=== PATIENT | female | born 1985 ===

== ENCOUNTER 2016-07-20 12:05 | Emergency (ER) | payer MEDICAID ==
[2016-07-20 12:06] VITALS: BMI 21.5
[2016-07-20 12:31] VITALS: TEMP 98
--- NOTE | 2016-07-20 14:00 | ED PDOC ---
Lower Extremity Pain/Injury Time Seen by Provider: 07/20/16 12:45 Chief Complaint (Nursing): Lower Extremity Problem/Injury Chief Complaint (Provider): Lower Extremity Problem/Injury History Per: Patient History/Exam Limitations: no limitations Onset/Duration Of Symptoms: Days (x2 days) Current Symptoms Are (Timing): Still Present Additional Complaint(s): 30 y/o female who presents to the emergency department with a complaint of right leg pain described as numbness and a pinching sensation throughout the right leg x2 days. Associated with fleeting shortness of breath and chest pain ( had resolved since) only at night before going to sleep x3 months. Patient states she felt a small ball located on the inner region of the right leg with pain to palpation and was concerned it was a blood clot. Denies any recent travel. Of note, patient is concerned because she has a history of blood clotting disorders. Patient reports taking Eliquis which she believes does not work because when she accidentally cut herself she noted that her blood is extremely thick. States she had a stroke at the age of 23 and takes Hydroxia, Topamax ( For seizures), Gabapentin, and Atorvastatin (high cholesterol). PMD: Dr. Costa Jones MD Past Medical History Reviewed: Historical Data, Nursing Documentation, Vital Signs Vital Signs: Last Vital Signs Temp 98.0 F 07/20/16 12:29 Pulse 64 07/20/16 12:29 Resp 19 07/20/16 12:29 BP Pulse Ox 119 H 07/20/16 12:29 - Medical History PMH: Anemia, Anxiety, Arthritis, Asthma, Back Problems, CAD, CVA (x 3, Protein C /S deficiency), Depression, HTN, Hypercholesterolemia, Hyperlipidemia, Migraine , Schizophrenia, Seizures, Sickle Cell Disease, TIA, Chronic Pain Denies: Chronic Kidney Disease - Family History Family History: States: Unknown Family Hx, [place] - Social History Current smoker - smoking cessation education provided: Yes (Light Smoker < 10 Cigarettes Daily) Alcohol: None Drugs: Denies - Immunization History Hx Tetanus Toxoid Vaccination: Yes Hx Influenza Vaccination: No Hx Pneumococcal Vaccination: Yes - Home Medications Home Medications: Ambulatory Orders Medication Instructions Recorded Apixaban [Eliquis] 5 mg PO BID #0 tab 09/21/15 oxyCODONE [oxyCODONE Immediate 15 mg PO Q8H PRN 02/21/16 Release Tab] Atorvastatin [Lipitor] 10 mg PO HS 04/14/16 Doxycycline Hyclate [Doryx] 100 mg PO Q12H 04/14/16 Gabapentin [Neurontin] 300 mg PO BID 04/14/16 Multivitamin [Multi-Vitamin Daily] 1 tab PO DAILY 04/14/16 traMADol [Ultram] 50 mg PO Q4H PRN 04/14/16 Cephalexin [Keflex] 500 mg PO Q6 #20 cap 04/19/16 Topiramate [Topamax] 150 mg PO BID #60 tab 04/19/16 - Allergies Allergies/Adverse Reactions: Allergies Allergy/AdvReac Type Severity Reaction Status Date / Time ketorolac tromethamine Allergy Mild SWELLING Verified 04/27/16 21:28 [From Toradol] naproxen [From Naprosyn] Allergy Mild URTICARIA Verified 04/27/16 21:28 polyethylene glycol 3350 Allergy Mild RASH Verified 04/27/16 21:28 [From Miralax] shellfish derived Allergy Mild ANAPHYLAXIS Verified 04/27/16 21:28 mushroom Allergy ANAPHYLAXIS Verified 04/27/16 21:28 ibuprofen [From Motrin] AdvReac Mild vomiting Verified 04/27/16 21:28 blood PORK AdvReac DIARRHEA Verified 04/27/16 21:28 nguyen Allergy Severe RASH Uncoded 04/27/16 21:28 Review of Systems ROS Statement: Except As Marked, All Systems Reviewed And Found Negative Cardiovascular: Positive for: Chest Pain (Only at night; fleeting) Respiratory: Positive for: Shortness of Breath (only at night; fleeting) Musculoskeletal: Positive for: Leg Pain (Right. Associated with numbness and pinching sensation. Hurts with palpation) Physical Exam - Reviewed Nursing Documentation Reviewed: Yes Vital Signs Reviewed: Yes - Physical Exam Appears: Positive for: Non-toxic, No Acute Distress Head Exam: Positive for: ATRAUMATIC, NORMOCEPHALIC Skin: Positive for: Normal Color, Warm, Dry Neck: Positive for: Normal, Supple Cardiovascular/Chest: Positive for: Regular Rate, Rhythm. Negative for: Murmur Respiratory: Positive for: Normal Breath Sounds. Negative for: Accessory Muscle Use, Respiratory Distress Extremity: Negative for: Normal ROM (Superficial harden noted above varicose vein to the medial aspect of the right leg), Other (Negative mariely's sign. ) Neurologic/Psych: Positive for: Alert, Oriented - Laboratory Results Result Diagrams: 07/20/16 14:28 07/20/16 14:28 - ECG ECG Rhythm: Positive for: Sinus Rhythm (74bpm no ectopy no acute changes) O2 Sat by Pulse Oximetry: 119 (RA) Pulse Ox Interpretation: Normal - Progress ED Course And Treament: ct : neg for dvt Medical Decision Making Medical Decision Making: Time: 12:45 Initial impression: Chest Pain (Non Specific) Initial plan: --Angio Chest PE Protocol (CT) --Electrocardiogram --B-Type Natriuretic Peptide (PROBNP) --BMP (Basic Metabolic Panel) --Troponin I Stat --ED Urine (POC) --EKG-ED (EDNURTX) --CBC w/ differential --Chest Portable (RAD) --Duplex Lower Extrm Vein Right (US) Time: 14:11 --Extremity Ultrasound FINDINGS: COMMON FEMORAL VEIN: Number color flow, compressibility and augmentation response. SUPERFICIAL FEMORAL VEIN: Number color flow, compressibility and augmentation response. POPLITEAL VEIN: Number color flow, compressibility and augmentation response. POSTERIOR TIBIAL VEIN: Number color flow, compressibility and augmentation response. OTHER FINDINGS: None. IMPRESSION: No evidence of deep venous thrombosis in the right lower extremity. Time: 14:16 -- Duplex is negative Time: 14:30 --Partial Thromboplastin Time (COAG) --Prothrombin (COAG) Scribe Attestation: Documented by Kim Crenshaw, acting as a scribe for Kalli jaeger PA-C. Provider Scribe Attestation: All medical record entries made by the Scribe were at my direction and personally dictated by me. I have reviewed the chart and agree that the record accurately reflects my personal performance of the history, physical exam, medical decision making, and the department course for this patient. I have also personally directed, reviewed, and agree with the discharge instructions and disposition. Disposition - Clinical Impression Clinical Impression: Varicose vein of leg, Chest pain of uncertain etiology - Patient ED Disposition Is Patient to be Admitted: No - Disposition Disposition: Routine/Home Disposition Time: 17:31 Condition: FAIR Instructions: Varicose Veins (ED), Chest Pain (ED)
--- NOTE | 2016-07-20 14:14 | US ---
PROCEDURE: Right lower extremity venous duplex Doppler. HISTORY: r/o dvt COMPARISON: None available. TECHNIQUE: Common femoral, superficial femoral, popliteal and posterior tibial veins were evaluated. Flow was assessed with color Doppler, compressibility, assessment of phasic flow and augmentation response. FINDINGS: COMMON FEMORAL VEIN: Number color flow, compressibility and augmentation response. SUPERFICIAL FEMORAL VEIN: Number color flow, compressibility and augmentation response. POPLITEAL VEIN: Number color flow, compressibility and augmentation response. POSTERIOR TIBIAL VEIN: Number color flow, compressibility and augmentation response. OTHER FINDINGS: None. IMPRESSION: No evidence of deep venous thrombosis in the right lower extremity.
[2016-07-20 14:35] LABS: BASO # 0.1 K/uL (0.0-0.2); BASO % 0.8 % (0.0-2.0); EOS # 0.1 K/uL (0.0-0.7); EOS % 2.1 % (0.0-4.0); HEMATOCRIT 38.6 % (34.0-47.0); LYMPH # 1.7 K/uL (1.0-4.3); LYMPH % 25.9 % (20.0-40.0); MEAN CELL VOLUME 89.8 fl (81.0-99.0); MEAN CORPUSCULAR HEMOGLOBIN 29.3 pg (27.0-31.0); MEAN CORPUSCULAR HGB CONC 32.7 g/dL (33.0-37.0); MEAN PLATELET VOLUME 8.3 fl (7.2-11.7); MONO # 0.6 K/uL (0.0-0.8); MONO % 9.3 % (0.0-10.0); NEUT # 4.1 K/uL (1.8-7.0); NEUT % 61.9 % (50.0-75.0); NRBC % 0.1 % (0.0-0.0); RED CELL DISTRIBUTION WIDTH 16.8 % (11.5-14.5); WHITE BLOOD COUNT 6.6 K/uL (4.8-10.8)
[2016-07-20 15:29] LABS: BLOOD UREA NITROGEN 14 mg/dl (7-17); CALCIUM 9.2 mg/dL (8.4-10.2); CARBON DIOXIDE 23 mmol/L (22-30); CHLORIDE 107 mmol/L (98-107); GFR AFRICAN-AMERICAN > 60; GLUCOSE,RANDOM 72 mg/dL (65-105); POTASSIUM 3.3 MMOL/L (3.6-5.0); SODIUM 145 mmol/l (132-148)
[2016-07-20] MEDS ORDERED: Sodium Chloride 0.9% 50 ML IV ONE (15:33)
[2016-07-20] MEDS ORDERED: Iodixanol 320 MG/ML 100 ML BOTTLE IV ONE (15:33)
--- NOTE | 2016-07-20 17:02 | CT ---
PROCEDURE: CT Chest with contrast (Pulmonary Angiogram) HISTORY: r/o PE COMPARISON: None available. TECHNIQUE: Axial computed tomography images were obtained of the chest in the pulmonary arterial phase of enhancement. Coronal and sagittal reformatted images were created and reviewed. This CT exam was performed using one or more of the following dose reduction techniques: Automated exposure control, adjustment of the mA and/or kV according to patient size, and/or use of iterative reconstruction technique. Intravenous contrast dose: 85 cc of Visipaque Radiation dose: Total exam DLP = 350 mGy-cm. FINDINGS: PULMONARY ARTERIES: Unremarkable. No pulmonary embolism. AORTA: No acute findings. No thoracic aortic aneurysm. LUNGS: Unremarkable. No nodule, mass or pulmonary consolidation. PLEURAL SPACES: Unremarkable. No effusion or pneuomothorax. HEART: Unremarkable. No cardiomegaly. No significant pericardial effusion. LYMPH NODES: No lymphadenopathy. BONES, CHEST WALL: Unremarkable. No fracture or destructive lesion OTHER FINDINGS: Unremarkable. IMPRESSION: Unremarkable CT pulmonary angiogram. No pulmonary embolus.
[2016-07-20 17:35] VITALS: BP 106/68; PULSE 68; RESP 16; O2SAT 100
--- NOTE | 2016-07-20 19:01 | CARD ---
APPROVED REPORT EKG Measurement Heart [id number] <Conclusion> Normal sinus rhythm with sinus arrhythmia Normal ECG
== END 2016-07-20 17:45 | disposition home or self-care (01) ==
LOC: H.ER 12:05
DX: I83.90 Asymptomatic varicose veins of unspecified lower extremity (principal); R07.9 Chest pain, unspecified; E78.00 Pure hypercholesterolemia, unspecified; F17.210 Nicotine dependence, cigarettes, uncomplicated; F20.9 Schizophrenia, unspecified; F41.9 Anxiety disorder, unspecified; I10 Essential (primary) hypertension; I25.10 Atherosclerotic heart disease of native coronary artery without angina pectoris; Z79.01 Long term (current) use of anticoagulants; Z86.73 Personal history of transient ischemic attack (TIA), and cerebral infarction without residual deficits

== ENCOUNTER 2016-07-23 00:59 | Emergency (ER) | payer MEDICAID ==
[2016-07-23 00:59] VITALS: BMI 21.5
--- NOTE | 2016-07-23 01:25 | ED PDOC ---
HPI: Allergic Reaction Time Seen by Provider: 07/23/16 01:24 Chief Complaint (Nursing): Allergic Reaction Chief Complaint (Provider): dizziness, nausea History Per: Patient Additional Complaint(s): Patient states that she is concerned she may have had a reaction to CT contrast dye. Patient was seen 2 days ago in ED and had CT with IV dye. Shortly after she developed nausea, dizziness and sensation of swelling to face. Patient denies any throat discomfort or rash. She states that she has had IV contrast dye in the past and did develop similar reaction but on her most recent visit to ED she did not mention it to the ED provider. She denies any vomiting but has had persistent nausea and decreased PO intake. No associated chest pain, SOB or YEE. No fever or chills. Past Medical History Reviewed: Historical Data, Nursing Documentation, Vital Signs Vital Signs: Last Vital Signs Temp 98.4 F 07/23/16 01:19 Pulse 77 07/23/16 01:19 Resp 18 07/23/16 01:19 BP 138/79 07/23/16 01:19 Pulse Ox 100 07/23/16 01:19 - Medical History PMH: Anemia, Anxiety, Arthritis, Asthma, Back Problems, CAD, CVA (x 3, Protein C /S deficiency), Depression, HTN, Hypercholesterolemia, Hyperlipidemia, Migraine , Schizophrenia, Seizures, Sickle Cell Disease, TIA, Chronic Pain - Family History Family History: States: No Known Family Hx - Living Arrangements Living Arrangements: With Family - Social History Current smoker - smoking cessation education provided: Yes Alcohol: None Drugs: Denies - Home Medications Home Medications: Ambulatory Orders Medication Instructions Recorded Apixaban [Eliquis] 5 mg PO BID #0 tab 09/21/15 oxyCODONE [oxyCODONE Immediate 15 mg PO Q8H PRN 02/21/16 Release Tab] Atorvastatin [Lipitor] 10 mg PO HS 04/14/16 Doxycycline Hyclate [Doryx] 100 mg PO Q12H 04/14/16 Gabapentin [Neurontin] 300 mg PO BID 04/14/16 Multivitamin [Multi-Vitamin Daily] 1 tab PO DAILY 04/14/16 traMADol [Ultram] 50 mg PO Q4H PRN 04/14/16 Cephalexin [Keflex] 500 mg PO Q6 #20 cap 04/19/16 Topiramate [Topamax] 150 mg PO BID #60 tab 04/19/16 Ondansetron [Zofran Odt] 4 mg PO ASDIR PRN #10 odt 07/23/16 predniSONE [Prednisone] 10 mg PO BID #10 tab 07/23/16 - Allergies Allergies/Adverse Reactions: Allergies Allergy/AdvReac Type Severity Reaction Status Date / Time ketorolac tromethamine Allergy Mild SWELLING Verified 04/27/16 21:28 [From Toradol] naproxen [From Naprosyn] Allergy Mild URTICARIA Verified 04/27/16 21:28 polyethylene glycol 3350 Allergy Mild RASH Verified 04/27/16 21:28 [From Miralax] shellfish derived Allergy Mild ANAPHYLAXIS Verified 04/27/16 21:28 mushroom Allergy ANAPHYLAXIS Verified 04/27/16 21:28 ibuprofen [From Motrin] AdvReac Mild vomiting Verified 04/27/16 21:28 blood PORK AdvReac DIARRHEA Verified 04/27/16 21:28 nguyen Allergy Severe RASH Uncoded 04/27/16 21:28 Review of Systems ROS Statement: Except As Marked, All Systems Reviewed And Found Negative Constitutional: Positive for: Other (possible adverse reaction to med). Negative for: Fever, Chills Gastrointestinal: Positive for: Nausea. Negative for: Vomiting, Abdominal Pain Skin: Negative for: Rash Neurological: Positive for: Dizziness. Negative for: Headache Physical Exam - Reviewed Nursing Documentation Reviewed: Yes Vital Signs Reviewed: Yes - Physical Exam Appears: Positive for: Well, Non-toxic, No Acute Distress Head Exam: Positive for: ATRAUMATIC, NORMAL INSPECTION Skin: Negative for: Rash Eye Exam: Positive for: Normal appearance, EOMI, PERRL ENT: Positive for: Other (no apparent facial edema, airway patent, uvula midline ) Cardiovascular/Chest: Positive for: Regular Rate, Rhythm Respiratory: Positive for: Normal Breath Sounds Gastrointestinal/Abdominal: Positive for: Normal Exam, Soft. Negative for: Tenderness Neurologic/Psych: Positive for: Alert, Oriented - Laboratory Results Urine POC: Negative - ECG O2 Sat by Pulse Oximetry: 100 Pulse Ox Interpretation: Normal - Progress ED Course And Treament: Medical Decision Making Impression: Adverse reaction to medication. No respiratory distress noted upon arrival. Plan: IM solumedrol and zofran Patient improved after meds. Rx given for zofran and prednisone. Patient was advised to inform providers of reaction to dye in the future. Advised PMD follow up in 1-2 days. Disposition - Clinical Impression Clinical Impression: Contrast media adverse reaction - Patient ED Disposition Is Patient to be Admitted: No Counseled Patient/Family Regarding: Diagnosis, Need For Followup, Rx Given - Disposition Referrals: Costa Jones MD [Staff Provider] - Disposition: Routine/Home Disposition Time: 03:39 Condition: STABLE Additional Instructions: Take meds as directed. Follow up with primary care doctor. Prescriptions: Ondansetron [Zofran Odt] 4 mg PO ASDIR PRN #10 odt PRN Reason: Nausea/Vomiting predniSONE [Prednisone] 10 mg PO BID #10 tab Instructions: Adverse Drug Reaction (ED)
[2016-07-23 02:16] VITALS: BP 138/79; PULSE 77; RESP 18; TEMP 98.4; O2SAT 100
== END 2016-07-23 03:46 | disposition home or self-care (01) ==
LOC: H.ER 00:59
DX: T50.8X5A Adverse effect of diagnostic agents, initial encounter (principal); Z79.01 Long term (current) use of anticoagulants; R42 Dizziness and giddiness; I11.0 Hypertensive heart disease with heart failure; I10 Essential (primary) hypertension; F20.9 Schizophrenia, unspecified; E78.00 Pure hypercholesterolemia, unspecified; Z86.73 Personal history of transient ischemic attack (TIA), and cerebral infarction without residual deficits

== ENCOUNTER 2016-08-17 08:44 | Emergency (ER) | payer MEDICAID ==
[2016-08-17 08:45] VITALS: BMI 21.5
[2016-08-17 09:10] VITALS: RESP 14
--- NOTE | 2016-08-17 09:31 | ED PDOC ---
HPI: Chest Pain Time Seen by Provider: 08/17/16 09:00 Chief Complaint (Nursing): Chest Pain Chief Complaint (Provider): Chest Pain History Per: Patient History/Exam Limitations: no limitations Onset/Duration Of Symptoms: Hrs Current Symptoms Are (Timing): Still Present Severity: Moderate Quality: "Pain" Associated Symptoms: Dyspnea Modifying Factors: None Exacerbating Factors: None Alleviating Factors: None Additional History Per: Patient Additional Complaint(s): Patient is a 30 year old female who presents to ED for evaluation of back pain and chest pain that began upon waking this morning at 0700. Patient notes pain is associated with SOB. States she has a history of CVA 2 years ago with residual left sided numbness and mild facial droop. Patient also with a history of sickle cell, takes Dilaudid daily but recently ran out of medication, notes pain management doctor is on vacation and will be unable to see him. requesting pain medications. Past Medical History Reviewed: Historical Data, Nursing Documentation, Vital Signs Vital Signs: Last Vital Signs Temp 98.4 F 08/17/16 14:11 Pulse 67 08/17/16 14:11 Resp 14 08/17/16 14:11 BP 118/59 L 08/17/16 14:11 Pulse Ox 99 08/17/16 19:06 - Medical History PMH: Anemia, Anxiety, Arthritis, Asthma, Back Problems, CAD, CVA (x 3, Protein C /S deficiency), Depression, HTN, Hypercholesterolemia, Hyperlipidemia, Migraine , Schizophrenia, Seizures, Sickle Cell Disease, TIA, Chronic Pain Denies: Chronic Kidney Disease - Surgical History Other surgeries: ovarian cyst removal - Family History Family History: States: Unknown Family Hx, [place] - Social History Current smoker - smoking cessation education provided: No Alcohol: None Drugs: Denies - Immunization History Hx Tetanus Toxoid Vaccination: Yes Hx Influenza Vaccination: No Hx Pneumococcal Vaccination: Yes - Home Medications Home Medications: Ambulatory Orders Medication Instructions Recorded Apixaban [Eliquis] 5 mg PO BID #0 tab 09/21/15 oxyCODONE [oxyCODONE Immediate 15 mg PO Q8H PRN 02/21/16 Release Tab] Atorvastatin [Lipitor] 10 mg PO HS 04/14/16 Doxycycline Hyclate [Doryx] 100 mg PO Q12H 04/14/16 Gabapentin [Neurontin] 300 mg PO BID 12/30/16 Multivitamin [Multi-Vitamin Daily] 1 tab PO DAILY 04/14/16 traMADol [Ultram] 50 mg PO Q4H PRN 04/14/16 Cephalexin [Keflex] 500 mg PO Q6 #20 cap 04/19/16 Topiramate [Topamax] 150 mg PO BID #60 tab 04/19/16 Ondansetron [Zofran Odt] 4 mg PO ASDIR PRN #10 odt 07/23/16 predniSONE [Prednisone] 10 mg PO BID #10 tab 07/23/16 - Allergies Allergies/Adverse Reactions: Allergies Allergy/AdvReac Type Severity Reaction Status Date / Time ketorolac tromethamine Allergy Mild SWELLING Verified 04/27/16 21:28 [From Toradol] naproxen [From Naprosyn] Allergy Mild URTICARIA Verified 04/27/16 21:28 polyethylene glycol 3350 Allergy Mild RASH Verified 04/27/16 21:28 [From Miralax] shellfish derived Allergy Mild ANAPHYLAXIS Verified 04/27/16 21:28 mushroom Allergy ANAPHYLAXIS Verified 04/27/16 21:28 ibuprofen [From Motrin] AdvReac Mild vomiting Verified 04/27/16 21:28 blood PORK AdvReac DIARRHEA Verified 04/27/16 21:28 nguyen Allergy Severe RASH Uncoded 04/27/16 21:28 Review of Systems ROS Statement: Except As Marked, All Systems Reviewed And Found Negative Constitutional: Negative for: Fever, Weakness, Weight loss Cardiovascular: Positive for: Chest Pain. Negative for: Palpitations, Light Headedness Respiratory: Positive for: Shortness of Breath. Negative for: Cough Gastrointestinal: Negative for: Nausea, Vomiting, Abdominal Pain Musculoskeletal: Positive for: Back Pain. Negative for: Neck Pain Skin: Negative for: Rash Neurological: Negative for: Weakness, Numbness, Headache, Dizziness Physical Exam - Reviewed Nursing Documentation Reviewed: Yes Vital Signs Reviewed: Yes - Physical Exam Appears: Positive for: Non-toxic, No Acute Distress Skin: Positive for: Normal Color, Warm Eye Exam: Positive for: Normal appearance Neck: Positive for: Normal, Painless ROM Cardiovascular/Chest: Positive for: Regular Rate, Rhythm, Chest Non Tender. Negative for: Murmur Respiratory: Positive for: Normal Breath Sounds Gastrointestinal/Abdominal: Positive for: Normal Exam Back: Positive for: Normal Inspection. Negative for: Vertebral Tenderness Extremity: Positive for: Normal ROM Neurologic/Psych: Positive for: Alert, Oriented - Laboratory Results Result Diagrams: 08/17/16 10:23 08/17/16 10:23 - ECG O2 Sat by Pulse Oximetry: 99 (RA) Pulse Ox Interpretation: Normal Medical Decision Making Medical Decision Making: Time: 924 Initial impression: Acute on chronic sickle cell pain, r/o pneumonia and ACS Initial plan: -- EKG -- CMP -- Troponin -- CBC -- CXR -- Dilaudid IVP Time: 1200 Patient reports continued pain at this time. States pain radiates from her chest to the back. Plan: -- CT-chest Time: 1650 CT-chest reuslts reviewed PROCEDURE: CT Chest without contrast HISTORY: chest pain COMPARISON: Comparison is made to the previous study dated 07/20/2016 TECHNIQUE: Contiguous axial images were obtained through the chest without intravenous contrast enhancement. Sagittal and coronal reconstructions were performed. Radiation dose (DLP): 376.1 mGy-cm. This CT exam was performed using one or more of the following dose reduction techniques: Automated exposure control, adjustment of the mA and/or kV according to patient size, and/or use of iterative reconstruction technique. FINDINGS: LUNGS: Clear lungs. Visualized airway clear. MEDIASTINUM: Unremarkable thoracic aorta. No aneurysm. Normal sized heart. Main pulmonary artery unremarkable. No vascular congestion. No lymphadenopathy. Anterior mediastinal soft tissue density is again noted likely represent residual thymus gland. PLEURA: No pleural fluid. No pneumothorax. BONES: No fracture. No destructive lesion. UPPER ABDOMEN: Possible mild hepato splenomegaly. OTHER FINDINGS: None. IMPRESSION: No evidence of acute pulmonary disease. No significant interval change in the chest since the previous exam. Suspicious for hepato splenomegaly. U/S results reviewed PROCEDURE: Bilateral lower extremity venous duplex Doppler. HISTORY: chest pain rule out clot COMPARISON: None available. TECHNIQUE: Bilateral common femoral, superficial femoral, popliteal and posterior tibial veins were evaluated. Flow was assessed with color Doppler, compressibility, assessment of phasic flow and augmentation response. FINDINGS: COMMON FEMORAL VEIN: Right CFV: Unremarkable. Left CFV: Unremarkable SUPERFICIAL FEMORAL VEIN: Right SFV: Unremarkable. Left SFV: Unremarkable. POPLITEAL VEIN: Right Popliteal: Unremarkable. Left Popliteal: Unremarkable. POSTERIOR TIBIAL VEIN: Right PTV: Unremarkable. Left PTV: Unremarkable. OTHER FINDINGS: None. IMPRESSION: No evidence of deep venous thrombosis. Discussed results with patient who verbalized understanding of instructions to follow up. pt states she feels better now. will follow up with primary doctor. aware of results of CT. Scribe Attestation: Documented by Erica Ledezma acting as a scribe for Filipe Cortez MD. MD Thornton Attestation: All medical record entries made by the Scribe were at my direction and personally dictated by me. I have reviewed the chart and agree that the record accurately reflects my personal performance of the history, physical exam, medical decision making, and the department course for this patient. I have also personally directed, reviewed, and agree with the discharge instructions and disposition. Disposition - Clinical Impression Clinical Impression: Chest wall pain - Patient ED Disposition Is Patient to be Admitted: No Counseled Patient/Family Regarding: Studies Performed, Diagnosis, Need For Followup - Disposition Disposition: Routine/Home Disposition Time: 12:00 Condition: IMPROVED Additional Instructions: follow up with your primary doctor in 1-2 days return to the ED with any worsening or concerning symptoms Instructions: Chest Pain (ED)
[2016-08-17 10:44] LABS: BASO # 0.1 K/uL (0.0-0.2); BASO % 1.1 % (0.0-2.0); EOS # 0.1 K/uL (0.0-0.7); EOS % 0.7 % (0.0-4.0); HEMATOCRIT 44.4 % (34.0-47.0); LYMPH # 2.4 K/uL (1.0-4.3); LYMPH % 22.8 % (20.0-40.0); MEAN CELL VOLUME 89.1 fl (81.0-99.0); MEAN CORPUSCULAR HEMOGLOBIN 29.1 pg (27.0-31.0); MEAN CORPUSCULAR HGB CONC 32.7 g/dL (33.0-37.0); MEAN PLATELET VOLUME 8.6 fl (7.2-11.7); MONO # 0.9 K/uL (0.0-0.8); MONO % 8.3 % (0.0-10.0); NEUT # 7.2 K/uL (1.8-7.0); NEUT % 67.1 % (50.0-75.0); NRBC % 0.1 % (0.0-0.0); WHITE BLOOD COUNT 10.7 K/uL (4.8-10.8)
--- NOTE | 2016-08-17 10:44 | RAD ---
HISTORY: chest pain COMPARISON: Comparison is made to the previous study dated 04/14/2016 TECHNIQUE: Chest PA and lateral FINDINGS: LUNGS: No active pulmonary disease. PLEURA: No significant pleural effusion identified. No pneumothorax apparent. CARDIOVASCULAR: Normal. OSSEOUS STRUCTURES: No significant abnormalities. VISUALIZED UPPER ABDOMEN: Normal. OTHER FINDINGS: None. IMPRESSION: No active disease.
[2016-08-17 10:48] LABS: ALKALINE PHOSPHATASE 83 U/L (38-126); ALT/SGPT 25 U/L (9-52); AST/SGOT 33 U/L (14-36); BILIRUBIN,TOTAL 0.8 mg/dl (0.2-1.3); BLOOD UREA NITROGEN 13 mg/dl (7-17); CALCIUM 9.7 mg/dL (8.4-10.2); CARBON DIOXIDE 19 mmol/L (22-30); CHLORIDE 112 mmol/L (98-107); GFR AFRICAN-AMERICAN > 60; GLUCOSE,RANDOM 87 mg/dL (65-105); SODIUM 146 mmol/l (132-148); TOTAL PROTEIN 9.1 G/DL (6.3-8.2)
[2016-08-17 14:12] VITALS: BP 118/59; PULSE 67; TEMP 98.4
--- NOTE | 2016-08-17 14:13 | CT ---
PROCEDURE: CT Chest without contrast HISTORY: chest pain COMPARISON: Comparison is made to the previous study dated 07/20/2016 TECHNIQUE: Contiguous axial images were obtained through the chest without intravenous contrast enhancement. Sagittal and coronal reconstructions were performed. Radiation dose (DLP): 376.1 mGy-cm. This CT exam was performed using one or more of the following dose reduction techniques: Automated exposure control, adjustment of the mA and/or kV according to patient size, and/or use of iterative reconstruction technique. FINDINGS: LUNGS: Clear lungs. Visualized airway clear. MEDIASTINUM: Unremarkable thoracic aorta. No aneurysm. Normal sized heart. Main pulmonary artery unremarkable. No vascular congestion. No lymphadenopathy. Anterior mediastinal soft tissue density is again noted likely represent residual thymus gland. PLEURA: No pleural fluid. No pneumothorax. BONES: No fracture. No destructive lesion. UPPER ABDOMEN: Possible mild hepato splenomegaly. OTHER FINDINGS: None. IMPRESSION: No evidence of acute pulmonary disease. No significant interval change in the chest since the previous exam. Suspicious for hepato splenomegaly.
--- NOTE | 2016-08-17 16:41 | US ---
PROCEDURE: Bilateral lower extremity venous duplex Doppler. HISTORY: chest pain rule out clot COMPARISON: None available. TECHNIQUE: Bilateral common femoral, superficial femoral, popliteal and posterior tibial veins were evaluated. Flow was assessed with color Doppler, compressibility, assessment of phasic flow and augmentation response. FINDINGS: COMMON FEMORAL VEIN: Right CFV: Unremarkable. Left CFV: Unremarkable. SUPERFICIAL FEMORAL VEIN: Right SFV: Unremarkable. Left SFV: Unremarkable. POPLITEAL VEIN: Right Popliteal: Unremarkable. Left Popliteal: Unremarkable. POSTERIOR TIBIAL VEIN: Right PTV: Unremarkable. Left PTV: Unremarkable. OTHER FINDINGS: None. IMPRESSION: No evidence of deep venous thrombosis.
[2016-08-17 16:58] VITALS: O2SAT 99
--- NOTE | 2016-08-18 08:44 | CARD ---
APPROVED REPORT EKG Measurement Heart [id number] <Conclusion> Sinus bradycardia with sinus arrhythmia Otherwise normal ECG
== END 2016-08-17 17:05 | disposition home or self-care (01) ==
LOC: H.ER 08:44
DX: R07.9 Chest pain, unspecified (principal); R06.02 Shortness of breath; M54.9 Dorsalgia, unspecified; Z86.73 Personal history of transient ischemic attack (TIA), and cerebral infarction without residual deficits

== ENCOUNTER 2016-11-04 21:20 | Emergency (ER) | payer MEDICAID ==
[2016-11-04 21:21] VITALS: BMI 21.5
[2016-11-04 21:24] VITALS: BP 122/73; PULSE 66; RESP 16; TEMP 99.4; O2SAT 98
[2016-11-04] MEDS ORDERED: Sodium Chloride 0.9% 1,000 ML IV STA (21:48)
--- NOTE | 2016-11-04 22:12 | ED PDOC ---
HPI: Seizure Time Seen by Provider: 11/04/16 21:27 Chief Complaint (Nursing): Seizure Chief Complaint (Provider): Seizure History Per: Patient History/Exam Limitations: no limitations Length Of Seizures (Duration): Minutes (20-30 minutes) Additional Complaint(s): Patient is a 31 year old female complaining of a right-sided headache and diffuse body aches after experiencing a seizure in the bathroom around 11:30 am. Patient believes she lost consciousness for about 20-30 minutes. Reports chills and two episodes of diarrhea x1 day. Admits being compliant with home medications. Denies drug or alcohol use, loss of sleep, or recent stressors. Of note, patient is under the care of pain management and is prescribed Dilaudid 4 mg by mouth as needed for chronic pain. States she did not take it prior to arrival because she knew that she was going to receive Dilaudid in the emergency department. PCP: Dr. Costa Bailey Past Medical History Reviewed: Historical Data, Nursing Documentation, Vital Signs Vital Signs: Last Vital Signs Temp 99.4 F 11/04/16 21:22 Pulse 66 11/04/16 21:22 Resp 16 11/04/16 21:22 BP 122/73 11/04/16 21:22 Pulse Ox 98 11/04/16 22:26 - Medical History PMH: Anemia, Anxiety, Arthritis, Asthma, Back Problems, CAD, CVA (x 3, Protein C /S deficiency), Depression, HTN, Hypercholesterolemia, Hyperlipidemia, Migraine , Schizophrenia, Seizures, Sickle Cell Disease, TIA, Chronic Pain Denies: Chronic Kidney Disease - Surgical History Surgical History: No Surg Hx - Family History Family History: States: Unknown Family Hx, [place] - Immunization History Hx Tetanus Toxoid Vaccination: Yes Hx Influenza Vaccination: No Hx Pneumococcal Vaccination: Yes - Home Medications Home Medications: Ambulatory Orders Medication Instructions Recorded Apixaban [Eliquis] 5 mg PO BID #0 tab 09/21/15 oxyCODONE [oxyCODONE Immediate 15 mg PO Q8H PRN 02/21/16 Release Tab] Atorvastatin [Lipitor] 10 mg PO HS 04/14/16 Doxycycline Hyclate [Doryx] 100 mg PO Q12H 04/14/16 Gabapentin [Neurontin] 300 mg PO BID 04/14/16 Multivitamin [Multi-Vitamin Daily] 1 tab PO DAILY 04/14/16 traMADol [Ultram] 50 mg PO Q4H PRN 04/14/16 Cephalexin [Keflex] 500 mg PO Q6 #20 cap 04/19/16 Topiramate [Topamax] 150 mg PO BID #60 tab 04/19/16 Ondansetron [Zofran Odt] 4 mg PO ASDIR PRN #10 odt 07/23/16 predniSONE [Prednisone] 10 mg PO BID #10 tab 07/23/16 - Allergies Allergies/Adverse Reactions: Allergies Allergy/AdvReac Type Severity Reaction Status Date / Time ketorolac tromethamine Allergy Mild SWELLING Verified 04/27/16 21:28 [From Toradol] naproxen [From Naprosyn] Allergy Mild URTICARIA Verified 04/27/16 21:28 polyethylene glycol 3350 Allergy Mild RASH Verified 04/27/16 21:28 [From Miralax] shellfish derived Allergy Mild ANAPHYLAXIS Verified 04/27/16 21:28 mushroom Allergy ANAPHYLAXIS Verified 04/27/16 21:28 ibuprofen [From Motrin] AdvReac Mild vomiting Verified 04/27/16 21:28 blood PORK AdvReac DIARRHEA Verified 04/27/16 21:28 nguyen Allergy Severe RASH Uncoded 04/27/16 21:28 Review of Systems ROS Statement: Except As Marked, All Systems Reviewed And Found Negative Constitutional: Positive for: Chills, Other (Diffuse body aches). Negative for : Fever Gastrointestinal: Positive for: Diarrhea Neurological: Positive for: Seizures, Headache (Right sided) Physical Exam - Reviewed Nursing Documentation Reviewed: Yes Vital Signs Reviewed: Yes - Physical Exam Appears: Positive for: No Acute Distress (Upon arrival for first evaluation, patient was found sitting comfortably in bed using her phone.) Head Exam: Positive for: ATRAUMATIC, NORMAL INSPECTION, NORMOCEPHALIC Skin: Positive for: Normal Color, Warm, Dry Eye Exam: Positive for: Normal appearance ENT: Positive for: Normal ENT Inspection. Negative for: Pharyngeal Erythema Neck: Positive for: Normal, Painless ROM, Supple Cardiovascular/Chest: Positive for: Regular Rate, Rhythm. Negative for: Murmur Respiratory: Positive for: Normal Breath Sounds. Negative for: Accessory Muscle Use, Respiratory Distress Gastrointestinal/Abdominal: Positive for: Normal Exam, Soft. Negative for: Tenderness Back: Positive for: Normal Inspection. Negative for: L CVA Tenderness, R CVA Tenderness Extremity: Positive for: Normal ROM. 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 Negative for: Motor/Sensory Deficits, Aphasia, Facial Droop - ECG O2 Sat by Pulse Oximetry: 98 (RA) Pulse Ox Interpretation: Normal Medical Decision Making Medical Decision Making: Initial Impression: Breakthrough seizure, acute on chronic head pain, and head injury Initial Plan: * CT Head * Labs * Urine Dipstick * Urine * Dilaudid 4 mg PO * NS 1 L, 1 L/hr * IV Insertion * Reevaluation ~ Scribe Attestation: Documented by Payton Hernandez, acting as a scribe for Bijal Roldan MD. Provider Scribe Attestation: All medical record entries made by the Scribe were at my direction and personally dictated by me. I have reviewed the chart and agree that the record accurately reflects my personal performance of the history, physical exam, medical decision making, and the department course for this patient. I have also personally directed, reviewed, and agree with the discharge instructions and disposition.
[2016-11-04 23:10] LABS: BASO # 0.1 K/uL (0.0-0.2); BASO % 0.9 % (0.0-2.0); EOS % 0.4 % (0.0-4.0); HEMOGLOBIN 13.9 g/dL (12.0-16.0); LYMPH # 2.8 K/uL (1.0-4.3); LYMPH % 23.9 % (20.0-40.0); MEAN CELL VOLUME 85.7 fl (81.0-99.0); MEAN CORPUSCULAR HEMOGLOBIN 27.5 pg (27.0-31.0); MEAN CORPUSCULAR HGB CONC 32.1 g/dL (33.0-37.0); MEAN PLATELET VOLUME 8.8 fl (7.2-11.7); MONO # 0.8 K/uL (0.0-0.8); MONO % 6.7 % (0.0-10.0); NEUT # 7.8 K/uL (1.8-7.0); NEUT % 68.1 % (50.0-75.0); RBC 5.06 Mil/uL (3.80-5.20); RED CELL DISTRIBUTION WIDTH 13.6 % (11.5-14.5); WHITE BLOOD COUNT 11.5 K/uL (4.8-10.8)
[2016-11-04 23:16] LABS: ALB/GLOB RATIO 1.3 (1.0-2.1); ALBUMIN 4.5 g/dL (3.5-5.0); ALT/SGPT 27 U/L (9-52); AST/SGOT 17 U/L (14-36); BLOOD UREA NITROGEN 9 mg/dl (7-17); CALCIUM 9.4 mg/dL (8.4-10.2); GFR AFRICAN-AMERICAN > 60; GFR NON-AFRICAN AMERICAN > 60
--- NOTE | 2016-11-05 00:11 | ED PDOC ---
- Laboratory Results Result Diagrams: 11/04/16 23:04 11/04/16 23:04 - ECG O2 Sat by Pulse Oximetry: 98 (RA) Pulse Ox Interpretation: Normal Medical Decision Making Medical Decision Making: Time: 0000 Initial plan: --Patient signed out to me by Dr. Roldan. Pending Head CT. 0126: Re-Evaluation/CT Scan Results: EXAM: CT Head Without Intravenous Contrast CLINICAL HISTORY: 31 years old, female; Injury or trauma; Injury Seizure; Initial encounter; Concussion / head injury; Without loss of consciousness; Additional info: Head injury on eliquis TECHNIQUE: Axial computed tomography images of the head/brain without intravenous contrast. This CT exam was performed using one or more of the following dose reduction techniques: automated exposure control, adjustment of the mA and/or kV according to patient size, and/or use of iterative reconstruction technique. Coronal and sagittal reformatted images were created and reviewed. COMPARISON: No relevant prior studies available. FINDINGS: Brain: No intracranial hemorrhage. No mass. No edema. Ventricles: No hydrocephalus. Bones/joints: No acute fracture. Soft tissues: Unremarkable. Sinuses: No acute sinusitis. Mastoid air cells: No mastoid effusion. Orbits: Unremarkable as visualized. IMPRESSION: 1. No intracranial hemorrhage. 2. Incidental/non-acute findings are described above. 130 Pt. states she's feeling better but still has some pain. 4mg PO dilaudid ordered, patient explained that she needs to f/u w/ pain managmenet and neurologist. Pt. in bed texting and playing on phone, neurologically intact. Will d/c home, return precautions given. Scribe Attestation: Documented by Sandy Hall, acting as a scribe for Jacinto Gunn MD. Scribe Attestation: All medical record entries made by the Scribe were at my direction and personally dictated by me. I have reviewed the chart and agree that the record accurately reflects my personal performance of the history, physical exam, medical decision making, and the department course for this patient. I have also personally directed, reviewed, and agree with the discharge instructions and disposition. Disposition - Clinical Impression Clinical Impression: Seizure, Migraine - POA Present On Arrival: None - Disposition [facility]errals[facility]] Disposition: Routine/Home Disposition Time: 01:45 Condition: STABLE Instructions: Migraine Headache (ED), Recurrent Seizures in Adults (ED)
[2016-11-05 00:46] LABS: PROTHROMBIN TIME 14.5 Seconds (9.8-13.1)
[2016-11-05 00:47] LABS: INR 1.3 (0.9-1.2); PARTIAL THROMBOPLASTIN TIME 34.2 Seconds (25.6-37.1)
[2016-11-05 01:17] LABS: SQUAMOUS EPITHIAL 6 /hpf (0-5); URINE BACTERIA RARE (<OCC); URINE BILIRUBIN NEGATIVE (NEGATIVE); URINE BLOOD NEGATIVE (NEGATIVE); URINE CLARITY SLIGHTY-CLOUDY (Clear); URINE COLOR YELLOW (YELLOW); URINE GLUCOSE (UA) NEG (Normal); URINE HYALINE CAST 0-2 /hpf (0-2); URINE LEUKOCYTE ESTERASE MOD Leu/uL (Negative); URINE NITRATE NEGATIVE (NEGATIVE); URINE PROTEIN NEGATIVE (NEGATIVE)
--- NOTE | 2016-11-05 01:26 | CT ---
EXAM: CT Head Without Intravenous Contrast CLINICAL HISTORY: 31 years old, female; Injury or trauma; Injury Seizure; Initial encounter; Concussion / head injury; Without loss of consciousness; Additional info: Head injury on eliquis TECHNIQUE: Axial computed tomography images of the head/brain without intravenous contrast. This CT exam was performed using one or more of the following dose reduction techniques: automated exposure control, adjustment of the mA and/or kV according to patient size, and/or use of iterative reconstruction technique. Coronal and sagittal reformatted images were created and reviewed. COMPARISON: No relevant prior studies available. FINDINGS: Brain: No intracranial hemorrhage. No mass. No edema. Ventricles: No hydrocephalus. Bones/joints: No acute fracture. Soft tissues: Unremarkable. Sinuses: No acute sinusitis. Mastoid air cells: No mastoid effusion. Orbits: Unremarkable as visualized. IMPRESSION: 1. No intracranial hemorrhage. 2. Incidental/non-acute findings are described above.
== END 2016-11-05 03:30 | disposition home or self-care (01) ==
LOC: H.ER 21:20
DX: G40.909 Epilepsy, unspecified, not intractable, without status epilepticus (principal); G43.909 Migraine, unspecified, not intractable, without status migrainosus

== ENCOUNTER 2016-11-13 12:28 | Emergency (ER) | payer MEDICAID, OTHER ==
[2016-11-13 12:28] VITALS: BMI 21.5
[2016-11-13 13:02] VITALS: BP 116/77; PULSE 71; RESP 18; TEMP 99; O2SAT 98
--- NOTE | 2016-11-13 13:37 | ED PDOC ---
HPI: General Adult Time Seen by Provider: 11/13/16 13:35 Chief Complaint (Nursing): Seizure Chief Complaint (Provider): seizure History Per: Patient (31 y/o female h/o seizures and strokes here for feeling of impending seizure. STates she forgot to take am dose of topomax (takes 100mg bid) and notes mild headache. Patient denies any weakness in arms/legs. Has h/o back/neck pain which has worsened today due sensation of impending seizures. Is currently on Eloquis for prevention of strokes.) Past Medical History Reviewed: Historical Data, Nursing Documentation, Vital Signs Vital Signs: Last Vital Signs Temp 99 F 11/13/16 12:57 Pulse 71 11/13/16 12:57 Resp 18 11/13/16 12:57 BP 116/77 11/13/16 12:57 Pulse Ox 98 11/13/16 13:37 - Medical History PMH: Anemia, Anxiety, Arthritis, Asthma, Back Problems, CAD, CVA (x 3, Protein C /S deficiency), Depression, HTN, Hypercholesterolemia, Hyperlipidemia, Migraine , Schizophrenia, Seizures, Sickle Cell Disease, TIA, Chronic Pain Denies: Chronic Kidney Disease - Family History Family History: States: Unknown Family Hx, [place] - Immunization History Hx Tetanus Toxoid Vaccination: Yes Hx Influenza Vaccination: No Hx Pneumococcal Vaccination: Yes - Home Medications Home Medications: Ambulatory Orders Medication Instructions Recorded Apixaban [Eliquis] 5 mg PO BID #0 tab 09/21/15 oxyCODONE [oxyCODONE Immediate 15 mg PO Q8H PRN 02/21/16 Release Tab] Atorvastatin [Lipitor] 10 mg PO HS 04/14/16 Doxycycline Hyclate [Doryx] 100 mg PO Q12H 04/14/16 Gabapentin [Neurontin] 300 mg PO BID 04/14/16 Multivitamin [Multi-Vitamin Daily] 1 tab PO DAILY 04/14/16 traMADol [Ultram] 50 mg PO Q4H PRN 04/14/16 Cephalexin [Keflex] 500 mg PO Q6 #20 cap 04/19/16 Topiramate [Topamax] 150 mg PO BID #60 tab 04/19/16 Ondansetron [Zofran Odt] 4 mg PO ASDIR PRN #10 odt 07/23/16 predniSONE [Prednisone] 10 mg PO BID #10 tab 07/23/16 - Allergies Allergies/Adverse Reactions: Allergies Allergy/AdvReac Type Severity Reaction Status Date / Time ketorolac tromethamine Allergy Mild SWELLING Verified 04/27/16 21:28 [From Toradol] naproxen [From Naprosyn] Allergy Mild URTICARIA Verified 04/27/16 21:28 polyethylene glycol 3350 Allergy Mild RASH Verified 04/27/16 21:28 [From Miralax] shellfish derived Allergy Mild ANAPHYLAXIS Verified 04/27/16 21:28 mushroom Allergy ANAPHYLAXIS Verified 04/27/16 21:28 ibuprofen [From Motrin] AdvReac Mild vomiting Verified 04/27/16 21:28 blood PORK AdvReac DIARRHEA Verified 04/27/16 21:28 nguyen Allergy Severe RASH Uncoded 04/27/16 21:28 Review of Systems ROS Statement: Except As Marked, All Systems Reviewed And Found Negative Physical Exam - Reviewed Nursing Documentation Reviewed: Yes Vital Signs Reviewed: Yes - Physical Exam Appears: Positive for: Well, Non-toxic, No Acute Distress Head Exam: Positive for: ATRAUMATIC, NORMAL INSPECTION, NORMOCEPHALIC Skin: Positive for: Normal Color, Warm, DRY Eye Exam: Positive for: EOMI, Normal appearance, PERRL ENT: Positive for: Normal ENT Inspection Neck: Positive for: Normal, Painless ROM Cardiovascular/Chest: Positive for: Regular Rate, Rhythm Respiratory: Positive for: CNT, Normal Breath Sounds Gastrointestinal/Abdominal: Positive for: Normal Exam, Bowel Sounds, Soft Back: Positive for: Normal Inspection Extremity: Positive for: Normal ROM Neurologic/Psych: Positive for: Alert, Oriented - Laboratory Results Result Diagrams: 11/13/16 14:25 11/13/16 14:25 - ECG O2 Sat by Pulse Oximetry: 98 - Progress ED Course And Treament: head ct: wnl topomax 100 mg x 1 dose Percocet 5/325 mg x 1 dose for pain Disposition - Clinical Impression Clinical Impression: Headache - Patient ED Disposition Is Patient to be Admitted: No - Disposition Disposition: Routine/Home Disposition Time: 15:23 Condition: FAIR Instructions: Epilepsy (DC), Acute Headache (DC) Forms: [employer] (Slovak)
--- NOTE | 2016-11-13 14:10 | CT ---
PROCEDURE: CT HEAD WITHOUT CONTRAST. HISTORY: headache/ on eloquis COMPARISON: 11/05/2016. TECHNIQUE: Axial computed tomography images were obtained through the head/brain without intravenous contrast. Radiation dose: Total exam DLP = 787.89 mGy-cm. This CT exam was performed using one or more of the following dose reduction techniques: Automated exposure control, adjustment of the mA and/or kV according to patient size, and/or use of iterative reconstruction technique. FINDINGS: HEMORRHAGE: No intracranial hemorrhage. BRAIN: No mass effect or edema. No atrophy or chronic microvascular ischemic changes. VENTRICLES: Unremarkable. No hydrocephalus. CALVARIUM: Unremarkable. PARANASAL SINUSES: Unremarkable as visualized. No significant inflammatory changes. MASTOID AIR CELLS: Unremarkable as visualized. No inflammatory changes. OTHER FINDINGS: None. IMPRESSION: No acute intracranial abnormalities. No significant findings to account for the clinical presentation.
[2016-11-13 14:40] LABS: BASO # 0.1 K/uL (0.0-0.2); BASO % 0.7 % (0.0-2.0); EOS % 0.6 % (0.0-4.0); HEMATOCRIT 43.6 % (34.0-47.0); LYMPH # 1.7 K/uL (1.0-4.3); LYMPH % 22.3 % (20.0-40.0); MEAN CELL VOLUME 86.1 fl (81.0-99.0); MEAN CORPUSCULAR HEMOGLOBIN 28.2 pg (27.0-31.0); MEAN CORPUSCULAR HGB CONC 32.8 g/dL (33.0-37.0); MEAN PLATELET VOLUME 8.7 fl (7.2-11.7); MONO # 0.5 K/uL (0.0-0.8); MONO % 5.8 % (0.0-10.0); NEUT # 5.6 K/uL (1.8-7.0); NEUT % 70.6 % (50.0-75.0); NRBC % 0.1 % (0.0-0.0); RED CELL DISTRIBUTION WIDTH 13.5 % (11.5-14.5); WHITE BLOOD COUNT 7.9 K/uL (4.8-10.8)
[2016-11-13 15:01] LABS: PARTIAL THROMBOPLASTIN TIME 33.9 Seconds (25.6-37.1)
[2016-11-13] MEDS: Sodium Chloride 0.9% 1,000 ML IV STA (15:06)
[2016-11-13 15:17] LABS: ALB/GLOB RATIO 1.2 (1.0-2.1); ALKALINE PHOSPHATASE 83 U/L (38-126); ALT/SGPT 50 U/L (9-52); AST/SGOT 36 U/L (14-36); BILIRUBIN,TOTAL 0.6 mg/dl (0.2-1.3); BLOOD UREA NITROGEN 6 mg/dl (7-17); CALCIUM 9.5 mg/dL (8.4-10.2); CARBON DIOXIDE 19 mmol/L (22-30); CHLORIDE 111 mmol/L (98-107); GFR AFRICAN-AMERICAN > 60; GLUCOSE,RANDOM 95 mg/dL (65-105); SODIUM 144 mmol/l (132-148); TOTAL PROTEIN 8.4 G/DL (6.3-8.2)
[2016-11-13] MEDS ORDERED: Oxycodone/Acetaminophen 5/325 mg Tab ONE (15:48)
[2016-11-13] MEDS: Oxycodone/Acetaminophen 5/325 mg Tab PO STA (15:52)
== END 2016-11-13 16:30 | disposition home or self-care (01) ==
LOC: H.ER 12:28
DX: R51 Headache (principal); Z86.69 Personal history of other diseases of the nervous system and sense organs; Z86.73 Personal history of transient ischemic attack (TIA), and cerebral infarction without residual deficits; Z79.01 Long term (current) use of anticoagulants; I10 Essential (primary) hypertension; E78.00 Pure hypercholesterolemia, unspecified; F20.9 Schizophrenia, unspecified

== ENCOUNTER 2016-11-14 02:18 | Observation (INO) | payer MEDICAID ==
[2016-11-14 02:18] VITALS: BMI 21.5
[2016-11-14 04:10] LABS: BASO # 0.1 K/uL (0.0-0.2); BASO % 0.6 % (0.0-2.0); EOS # 0.2 K/uL (0.0-0.7); EOS % 2.4 % (0.0-4.0); HEMATOCRIT 40.6 % (34.0-47.0); LYMPH # 2.8 K/uL (1.0-4.3); LYMPH % 26.2 % (20.0-40.0); MEAN CELL VOLUME 85.4 fl (81.0-99.0); MEAN CORPUSCULAR HEMOGLOBIN 28.3 pg (27.0-31.0); MEAN CORPUSCULAR HGB CONC 33.1 g/dL (33.0-37.0); MEAN PLATELET VOLUME 8.5 fl (7.2-11.7); MONO # 0.9 K/uL (0.0-0.8); MONO % 8.7 % (0.0-10.0); NEUT # 6.5 K/uL (1.8-7.0); NEUT % 62.1 % (50.0-75.0); NRBC % 0.2 % (0.0-0.0); RED CELL DISTRIBUTION WIDTH 13.5 % (11.5-14.5); WHITE BLOOD COUNT 10.5 K/uL (4.8-10.8)
[2016-11-14 04:18] LABS: ALB/GLOB RATIO 1.3 (1.0-2.1); ALKALINE PHOSPHATASE 63 U/L (38-126); ALT/SGPT 42 U/L (9-52); AST/SGOT 25 U/L (14-36); BILIRUBIN,TOTAL 0.5 mg/dl (0.2-1.3); BLOOD UREA NITROGEN 6 mg/dl (7-17); CALCIUM 9.1 mg/dL (8.4-10.2); CARBON DIOXIDE 19 mmol/L (22-30); CHLORIDE 110 mmol/L (98-107); GFR AFRICAN-AMERICAN > 60; GLUCOSE,RANDOM 99 mg/dL (65-105); POTASSIUM 3.1 MMOL/L (3.6-5.0); SODIUM 143 mmol/l (132-148); TOTAL PROTEIN 7.5 G/DL (6.3-8.2)
[2016-11-14] MEDS ORDERED: K-Lyte 25meq EF Tab PO ONE ×2 (04:26→06:17)
--- NOTE | 2016-11-14 04:29 | ED PDOC ---
HPI: Chest Pain Time Seen by Provider: 11/14/16 03:08 Chief Complaint (Nursing): Chest Pain Chief Complaint (Provider): chest pain History Per: Patient History/Exam Limitations: no limitations Additional Complaint(s): 31yo F in ED for acute chest p[ain she said started yesterday and has been intermittent. feels like an elhpan ton her chest left sided. denies nausea vomiting SOB or back pain. hx of Sickle cell , protein C/S def and sees pain mgnt. Past Medical History Reviewed: Historical Data, Nursing Documentation, Vital Signs Vital Signs: Last Vital Signs Temp 99.0 F 11/14/16 02:41 Pulse 89 11/14/16 02:41 Resp 12 11/14/16 02:41 BP 104/59 L 11/14/16 02:41 Pulse Ox 97 11/14/16 04:34 - Medical History PMH: Anemia, Anxiety, Arthritis, Asthma, Back Problems, CAD, CVA (x 3, Protein C /S deficiency), Depression, HTN, Hypercholesterolemia, Hyperlipidemia, Migraine , Schizophrenia, Seizures, Sickle Cell Disease, TIA, Chronic Pain Denies: Chronic Kidney Disease - Family History Family History: States: Unknown Family Hx, [place] - Immunization History Hx Tetanus Toxoid Vaccination: Yes Hx Influenza Vaccination: No Hx Pneumococcal Vaccination: Yes - Home Medications Home Medications: Ambulatory Orders Medication Instructions Recorded Apixaban [Eliquis] 5 mg PO BID #0 tab 09/21/15 oxyCODONE [oxyCODONE Immediate 15 mg PO Q8H PRN 02/21/16 Release Tab] Atorvastatin [Lipitor] 10 mg PO HS 04/14/16 Doxycycline Hyclate [Doryx] 100 mg PO Q12H 04/14/16 Gabapentin [Neurontin] 300 mg PO BID 04/14/16 Multivitamin [Multi-Vitamin Daily] 1 tab PO DAILY 04/14/16 traMADol [Ultram] 50 mg PO Q4H PRN 04/14/16 Cephalexin [Keflex] 500 mg PO Q6 #20 cap 04/19/16 Topiramate [Topamax] 150 mg PO BID #60 tab 04/19/16 Ondansetron [Zofran Odt] 4 mg PO ASDIR PRN #10 odt 07/23/16 predniSONE [Prednisone] 10 mg PO BID #10 tab 07/23/16 - Allergies Allergies/Adverse Reactions: Allergies Allergy/AdvReac Type Severity Reaction Status Date / Time ketorolac tromethamine Allergy Mild SWELLING Verified 04/27/16 21:28 [From Toradol] naproxen [From Naprosyn] Allergy Mild URTICARIA Verified 04/27/16 21:28 polyethylene glycol 3350 Allergy Mild RASH Verified 04/27/16 21:28 [From Miralax] shellfish derived Allergy Mild ANAPHYLAXIS Verified 04/27/16 21:28 mushroom Allergy ANAPHYLAXIS Verified 04/27/16 21:28 ibuprofen [From Motrin] AdvReac Mild vomiting Verified 04/27/16 21:28 blood PORK AdvReac DIARRHEA Verified 04/27/16 21:28 nguyen Allergy Severe RASH Uncoded 04/27/16 21:28 RADHA Risk Score for UA/NSTEMI - RADHA Risk Score Age > 64: NO 3 or more CAD Risk Factors: NO Known CAD (Stenosis greater than 50%): NO Aspirin use in past 7 days: NO Severe Angina: NO EKG ST changes greater than 0.5mm: NO Positive Cardiac Marker: NO RADHA Score: 0 Risk %: 5% Curb-65 Severity Score - CURB-65 Severity Score Confusion: No Bun >19mg/dl (>7mmol/L): No Respiratory Rate greater than/equal to 30: No Systolic BP <90 or Diastolic BP less than/equal 60mmHg: No Age >64: No Curb-65 Score: 0 Percentage 30-day mortality: 0.6% Wells Criteria for PE - Wells Criteria for Pulmonary Embolism Clinical Signs and Symptoms of DVT: No P.E is #1 Diagnosis, or Equally Likely: No Heart Rate >100: No Immobilization at least 3 days;Surgery previous 4 weeks: No Previous, objectively diagnosed PE or DVT: No Hemoptysis: No Malignancy w/treatment within 6 months, or palliative: No Total Score: 0 Review of Systems ROS Statement: Except As Marked, All Systems Reviewed And Found Negative Constitutional: Negative for: Fever, Weakness Cardiovascular: Positive for: Chest Pain Physical Exam - Reviewed Nursing Documentation Reviewed: Yes Vital Signs Reviewed: Yes - Physical Exam Appears: Positive for: Well (pt seen sleeping comfortably in ED. stable Vs and well appearing. ), Non-toxic, No Acute Distress Head Exam: Positive for: ATRAUMATIC, NORMAL INSPECTION, NORMOCEPHALIC Skin: Positive for: Normal Color, Warm, DRY Cardiovascular/Chest: Positive for: Regular Rate, Rhythm Respiratory: Positive for: CNT, Normal Breath Sounds Gastrointestinal/Abdominal: Positive for: Normal Exam, Bowel Sounds, Soft Extremity: Positive for: Normal ROM Neurologic/Psych: Positive for: Alert, Oriented - Laboratory Results Result Diagrams: 11/14/16 04:07 11/14/16 04:07 - ECG ECG Rhythm: Positive for: Normal QRS, Normal ST Segment, Sinus Rhythm O2 Sat by Pulse Oximetry: 97 - Progress ED Course And Treament: pt will need CTA to r/o PE due to hx . retic count, cbc, cmp, UA. Medical Decision Making Medical Decision Making: pt given Tylenol. PT has adverse reaction to IV contrast. PT will need VQ scan. PT has high rsik factors for PE- ie sickle cell, protein C& S def. and hx of PE. Pt will be admitted for obs tele. Disposition - Clinical Impression Clinical Impression: Chest pain - Patient ED Disposition Is Patient to be Admitted: No - Disposition Referrals: Costa Jones MD [Primary Care Provider] - Disposition Time: 04:51 Condition: STABLE Forms: just.me (Arabic) - Pt Status Changed To: Hospital Disposition Of: Observation - POA Present On Arrival: None
--- NOTE | 2016-11-14 11:18 | RAD ---
HISTORY: cough COMPARISON: 08/17/2016. TECHNIQUE: Chest PA and lateral FINDINGS: LUNGS: No active pulmonary disease. PLEURA: No significant pleural effusion identified. No pneumothorax apparent. CARDIOVASCULAR: Normal. OSSEOUS STRUCTURES: No significant abnormalities. VISUALIZED UPPER ABDOMEN: Normal. OTHER FINDINGS: None. IMPRESSION: No active disease. No significant interval change compared to the prior examination(s). No preliminary report provided by emergency department personnel.
[2016-11-14 12:17] LABS: THYROID STIMULATING HORMONE 1.13 mIU/ML (0.46-4.68)
[2016-11-14] MEDS ORDERED: Potassium Chloride 20 mEq ER Tab PO ONE (14:33)
[2016-11-14] MEDS: Potassium Chloride 20 mEq ER Tab PO SCH (14:35)
--- NOTE | 2016-11-14 15:18 | US ---
PROCEDURE: Bilateral lower extremity venous duplex Doppler. HISTORY: chest pain COMPARISON: None available. TECHNIQUE: Bilateral common femoral, superficial femoral, popliteal and posterior tibial veins were evaluated. Flow was assessed with color Doppler, compressibility, assessment of phasic flow and augmentation response. FINDINGS: COMMON FEMORAL VEIN: Right CFV: Unremarkable. Left CFV: Unremarkable. SUPERFICIAL FEMORAL VEIN: Right SFV: Unremarkable. Left SFV: Unremarkable. POPLITEAL VEIN: Right Popliteal: Unremarkable. Left Popliteal: Unremarkable. POSTERIOR TIBIAL VEIN: Right PTV: Unremarkable. Left PTV: Unremarkable. OTHER FINDINGS: None. IMPRESSION: No evidence of deep venous thrombosis in the right or left lower extremity. .
--- NOTE | 2016-11-14 15:31 | CP.PCM.HP ---
History of Present Illness - History of Present Illness History of Present Illness: This is a 31 y/o female h/o seizures, sickle cell, protein C& S def. and hx of PE who presents to ED c/o left sided chest pain that started yesterday, sudden, 01/23, no radiated, associated to difficulty breathing, but patient denies nausea, vomiting, abdominal pain or other complains. Present on Admission - Present on Admission Any Indicators Present on Admission: No History of DVT/PE: Yes History of Uncontrolled Diabetes: No Urinary Catheter: No Decubitus Ulcer Present: No Review of Systems - Constitutional Constitutional: As Per HPI Past Patient History - Infectious Disease Hx of Infectious Diseases: None - Tetanus Immunizations Tetanus Immunization: Unknown - Past Medical History & Family History Past Medical History?: Yes - Past Social History Smoking Status: Light Smoker < 10 Cigarettes Daily - CARDIAC Hx Cardiac Disorders: Yes - PULMONARY Hx Asthma: Yes - NEUROLOGICAL Hx Neurological Disorder: Yes - HEENT Hx HEENT Problems: No Other/Comment: wears glasses - RENAL Hx Chronic Kidney Disease: No - ENDOCRINE/METABOLIC Hx Endocrine Disorders: No Other/Comment: pre diabetic - HEMATOLOGICAL/ONCOLOGICAL Hx Blood Disorders: Yes - INTEGUMENTARY Hx Dermatological Problems: No - MUSCULOSKELETAL/RHEUMATOLOGICAL Hx Arthritis: Yes - GASTROINTESTINAL Hx Gastrointestinal Disorders: No - GENITOURINARY/GYNECOLOGICAL Hx Genitourinary Disorders: Yes - PSYCHIATRIC Hx Anxiety: Yes Hx Depression: Yes Hx Schizophrenia: Yes - SURGICAL HISTORY Hx Surgeries: Yes (L ovarian cyst) - ANESTHESIA Hx Anesthesia: Yes Hx Anesthesia Reactions: Yes (states "couldn't breathe") Meds Allergies/Adverse Reactions: Allergies Allergy/AdvReac Type Severity Reaction Status Date / Time ketorolac tromethamine Allergy Mild SWELLING Verified 04/27/16 21:28 [From Toradol] naproxen [From Naprosyn] Allergy Mild URTICARIA Verified 04/27/16 21:28 polyethylene glycol 3350 Allergy Mild RASH Verified 04/27/16 21:28 [From Miralax] shellfish derived Allergy Mild ANAPHYLAXIS Verified 04/27/16 21:28 mushroom Allergy ANAPHYLAXIS Verified 04/27/16 21:28 ibuprofen [From Motrin] AdvReac Mild vomiting Verified 04/27/16 21:28 blood PORK AdvReac DIARRHEA Verified 04/27/16 21:28 nguyen Allergy Severe RASH Uncoded 04/27/16 21:28 Physical Exam - Constitutional Appears: Non-toxic - Eye Exam Eye Exam: Normal appearance - ENT Exam ENT Exam: Mucous Membranes Moist - Respiratory Exam Respiratory Exam: Clear to Auscultation Bilateral, NORMAL BREATHING PATTERN - Cardiovascular Exam Cardiovascular Exam: REGULAR RHYTHM, +S1, +S2 - GI/Abdominal Exam GI & Abdominal Exam: Normal Bowel Sounds, Soft. absent: Distended, Guarding, Tenderness - Extremities Exam Extremities exam: Positive for: normal inspection. Negative for: calf tenderness, pedal edema - Neurological Exam Neurological exam: Alert, Oriented x3 - Skin Skin Exam: Dry, Intact, Normal Color Results - Vital Signs Recent Vital Signs: Last Vital Signs Temp 97.7 F 11/14/16 15:24 Pulse 98 H 11/14/16 15:24 Resp 19 11/14/16 15:24 BP 100/60 11/14/16 15:24 Pulse Ox 98 11/14/16 11:17 - Labs Result Diagrams: 11/14/16 04:07 11/14/16 04:07 Labs: Laboratory Results - last 24 hr 11/14/16 11:10 Triglycerides 145 Cholesterol 146 LDL Cholesterol Direct 75 HDL Cholesterol 35 TSH 3rd Generation 1.13 Assessment & Plan - Assessment and Plan (Free Text) Assessment: 31 y/o female h/o seizures, sickle cell, protein C& S def. and hx of PE presenting with an episode of chest pain associated to SOB admitted in telemetry for observation Plan: Chest pain admit to telemetry for obs -F/u Troponin I x 2 f/u VQ scan. Patient has allergies to IV contrast. f/u Lower extremities doppler US f/u lipid profile EKG showed no acute st/ t wave changes CXR showed no active disease H/O Seizure c/w home meds c/w topiramate H/O sickle cell disease Hgb/Hct : WNL retic count WNL -Consider Hemo consult Hypokalemia Potassium replacement potassium 40 meq PO daily f/u BMP DVT prophylaxis c/w home Eliquis - Date & Time Date: 11/14/16 Time: 13:00
[2016-11-14] MEDS ORDERED: Pneumococcal 23-Valent Vaccine IM ONE (18:53)
[2016-11-15 07:05] LABS: BLOOD UREA NITROGEN 9 mg/dl (7-17); CALCIUM 8.9 mg/dL (8.4-10.2); CARBON DIOXIDE 22 mmol/L (22-30); CHLORIDE 109 mmol/L (98-107); GFR AFRICAN-AMERICAN > 60; GLUCOSE,RANDOM 78 mg/dL (65-105); POTASSIUM 3.7 MMOL/L (3.6-5.0); SODIUM 140 mmol/l (132-148)
[2016-11-15] MEDS: Potassium Chloride 20 mEq ER Tab PO SCH (08:55)
[2016-11-15 12:57] VITALS: RESP 20
--- NOTE | 2016-11-15 13:00 | NM ---
COMPARISON: November 14, 2016. Chest x-ray TECHNIQUE: 44.7 mCi technetium 99-m DTPA aerosol. 5.7 mCI technetium 99-m MAA administered intravenously. FINDINGS: VENTILATION COMPONENT: Normal. PERFUSION COMPONENT: Heterogeneous distribution of radionuclide. No geographic, segmental, lobar abnormalities apparent on the present examination. IMPRESSION: Low probability ventilation perfusion scan for pulmonary embolism.
--- NOTE | 2016-11-15 14:21 | CP.PCM.DIS ---
Provider - Provider Date of Admission: 11/15/16 04:32 Attending physician: Costa Jones MD Primary care physician: Costa Jones MD Time Spent in preparation of Discharge (in minutes): 30 Diagnosis - Discharge Diagnosis (1) Chest pain Status: Acute Priority: High Comment: resolved during admission. EKG with NSR, and no acute ST/T wave changes. troponin I neg x 2. ACS was ruled out. VQ scan showed low probability for PE. Chest pain most likely secondary to costocondritis. F/u with PMD. (2) History of sickle cell anemia Status: Chronic Priority: Medium Comment: H/H WNL, retic count WNL. F/U as outpatient (3) History of seizure Status: Chronic Priority: Medium Comment: c/w current management. f/u as outpatient (4) Hypokalemia Status: Acute Priority: Medium Comment: potassium replaced and resolved (5) Chronic pain Status: Chronic Priority: High Comment: f/u with pain management Hospital Course - Lab Results Lab Results: Most Recent Lab Values WBC 10.5 K/uL (4.8-10.8) 11/14/16 04:07 RBC 4.75 Mil/uL (3.80-5.20) 11/14/16 04:07 Hgb 13.4 g/dL (12.0-16.0) 11/14/16 04:07 Hct 40.6 % (34.0-47.0) 11/14/16 04:07 MCV 85.4 fl (81.0-99.0) 11/14/16 04:07 MCH 28.3 pg (27.0-31.0) 11/14/16 04:07 MCHC 33.1 g/dL (33.0-37.0) 11/14/16 04:07 RDW 13.5 % (11.5-14.5) 11/14/16 04:07 Plt Count 282 K/uL (130-400) 11/14/16 04:07 MPV 8.5 fl (7.2-11.7) 11/14/16 04:07 Neut % (Auto) 62.1 % (50.0-75.0) 11/14/16 04:07 Lymph % (Auto) 26.2 % (20.0-40.0) 11/14/16 04:07 Rowan % (Auto) 8.7 % (0.0-10.0) 11/14/16 04:07 Eos % (Auto) 2.4 % (0.0-4.0) 11/14/16 04:07 Baso % (Auto) 0.6 % (0.0-2.0) 11/14/16 04:07 Neut # 6.5 K/uL (1.8-7.0) 11/14/16 04:07 Lymph # 2.8 K/uL (1.0-4.3) 11/14/16 04:07 Rowan # 0.9 K/uL (0.0-0.8) H 11/14/16 04:07 Eos # 0.2 K/uL (0.0-0.7) 11/14/16 04:07 Baso # 0.1 K/uL (0.0-0.2) 11/14/16 04:07 Retic Count 0.7 % (0.5-1.5) 11/14/16 04:07 Sodium 140 mmol/l (132-148) 11/15/16 05:15 Potassium 3.7 MMOL/L (3.6-5.0) 11/15/16 05:15 Chloride 109 mmol/L (98-107) H 11/15/16 05:15 Carbon Dioxide 22 mmol/L (22-30) 11/15/16 05:15 Anion Gap 13 (10-20) 11/15/16 05:15 BUN 9 mg/dl (7-17) 11/15/16 05:15 Creatinine 0.8 mg/dL (0.7-1.2) 11/15/16 05:15 Est GFR ( Amer) > 60 11/15/16 05:15 Est GFR (Non-Af Amer) > 60 11/15/16 05:15 Random Glucose 78 mg/dL (65-105) 11/15/16 05:15 Calcium 8.9 mg/dL (8.4-10.2) 11/15/16 05:15 Total Bilirubin 0.5 mg/dl (0.2-1.3) 11/14/16 04:07 AST 25 U/L (14-36) 11/14/16 04:07 ALT 42 U/L (9-52) 11/14/16 04:07 Alkaline Phosphatase 63 U/L (38-126) 11/14/16 04:07 Troponin I 0.0170 ng/mL (0.00-0.120) 11/14/16 21:00 Total Protein 7.5 G/DL (6.3-8.2) 11/14/16 04:07 Albumin 4.3 g/dL (3.5-5.0) 11/14/16 04:07 Globulin 3.2 gm/dL (2.2-3.9) 11/14/16 04:07 Albumin/Globulin Ratio 1.3 (1.0-2.1) 11/14/16 04:07 Triglycerides 145 mg/DL (0-149) 11/14/16 11:10 Cholesterol 146 mg/dL (0-199) 11/14/16 11:10 LDL Cholesterol Direct 75 mg/dL (0-129) 11/14/16 11:10 HDL Cholesterol 35 MG/DL (30-70) 11/14/16 11:10 TSH 3rd Generation 1.13 mIU/ML (0.46-4.68) 11/14/16 11:10 - Hospital Course Hospital Course: 31 y/o female h/o seizures, sickle cell, protein C& S def. and hx of PE presenting with an episode of chest pain associated to SOB admitted in telemetry for observation. Troponin negative x2, EKG with NSR and no aute ST/T wave changes. VQ scan showed low probability for PE. No evidence of DVT in dupplex US of lower extremities. - Date & Time of H&P Date of H&P: 11/14/16 Time of H&P: 15:30 Discharge Exam - Head Exam Head Exam: ATRAUMATIC, NORMAL INSPECTION, NORMOCEPHALIC - Eye Exam Eye Exam: Normal appearance - ENT Exam ENT Exam: Mucous Membranes Moist - Respiratory Exam Respiratory Exam: Clear to PA & Lateral, NORMAL BREATHING PATTERN - Cardiovascular Exam Cardiovascular Exam: REGULAR RHYTHM, +S1, +S2 - GI/Abdominal Exam GI & Abdominal Exam: Normal Bowel Sounds, Soft. absent: Distended, Guarding, Rigid, Tenderness - Extremities Exam Extremities exam: normal capillary refill, normal inspection Additional comments: no cald tenderness, no edema in lower extremities noted. - Neurological Exam Neurological exam: Alert, Normal Gait, Oriented x3 - Skin Skin Exam: Dry, Intact, Normal Color Discharge Plan - Follow Up Plan Condition: GOOD Disposition: HOME/ ROUTINE Patient education suggested?: Yes Additional Instructions: patient cleared for discharge to Home today by VQ scan negative, low probalility LE Doppler negative for DVT f/u with in 1 week Referrals: Costa Jones MD [Primary Care Provider] -
[2016-11-15 15:47] VITALS: BP 104/65; PULSE 73; TEMP 98.4; O2SAT 98
--- NOTE | 2016-11-15 18:17 | CARD ---
APPROVED REPORT EKG Measurement Heart [id number] <Conclusion> Normal sinus rhythm with sinus arrhythmia Normal ECG
== END 2016-11-15 16:55 | disposition home or self-care (01) ==
LOC: H.ER 02:18 → H.ERHOLD 05:15 → H.TEL 16:00 → OBSVTOIN 11-15 04:32 → INTOOBSV 11-15 04:32
PROVIDERS: ADMIT Family Medicine; ATTEND Family Medicine
DX: M94.0 Chondrocostal junction syndrome [Tietze] (principal); D57.1 Sickle-cell disease without crisis; E78.00 Pure hypercholesterolemia, unspecified; E78.5 Hyperlipidemia, unspecified; I10 Essential (primary) hypertension; I25.10 Atherosclerotic heart disease of native coronary artery without angina pectoris; Z86.73 Personal history of transient ischemic attack (TIA), and cerebral infarction without residual deficits; D64.9 Anemia, unspecified; G43.909 Migraine, unspecified, not intractable, without status migrainosus; E87.6 Hypokalemia; F20.9 Schizophrenia, unspecified; G89.29 Other chronic pain; J45.909 Unspecified asthma, uncomplicated; R73.03 Prediabetes; Z79.01 Long term (current) use of anticoagulants; Z79.899 Other long term (current) drug therapy; Z86.711 Personal history of pulmonary embolism; Z87.891 Personal history of nicotine dependence; F32.9 Major depressive disorder, single episode, unspecified; F41.9 Anxiety disorder, unspecified; M19.90 Unspecified osteoarthritis, unspecified site; R56.9 Unspecified convulsions; Z23 Encounter for immunization

== ENCOUNTER 2016-11-26 21:57 | Emergency (ER) | payer MEDICAID ==
[2016-11-26 21:57] VITALS: BMI 21.5
[2016-11-26 22:03] VITALS: BP 128/77; PULSE 94; RESP 16; TEMP 98.7; O2SAT 98
--- NOTE | 2016-11-26 22:22 | ED PDOC ---
Syncope/Near Syncope/Dizziness Time Seen by Provider: 11/26/16 22:09 Chief Complaint (Nursing): Dizziness/Lightheaded Chief Complaint (Provider): Whole body pain, headache, dizziness History Per: Patient History/Exam Limitations: no limitations Onset/Duration Of Symptoms: Days Current Symptoms Are (Timing): Still Present Activity At Onset Of Symptoms: Other Associated Symptoms Preceding Syncopal Episode: Other Seizure Or Post-ictal Symptoms: Generalized Seizure Activity (reports seizure activity 2 days prior ) Additional History Per: Patient Additional Complaint(s): 31 y/o female with an extensive medical history presenting to ED today with chief complaint of dizziness, whole body pain and headache. Pt reports 2 days ago, she had a seizure and was evaluated at [facility] and signed out AMA after being informed she needed to be admitted, states since then she has been having a headache which is unchanged from 2 days ago and has also been feeling dizziness, saying she feels like the room in spinning. She also reports having total body pain and thinks this is the beginning of a sickle cell crisis for her. Denies any chest pain, sob, fevers, nausea, vomiting, diarrhea. No other acute complaints PCP- Dr. Jones Past Medical History Vital Signs: Last Vital Signs Temp 98.7 F 11/26/16 22:00 Pulse 94 H 11/26/16 22:00 Resp 16 11/26/16 22:00 BP 128/77 11/26/16 22:00 Pulse Ox 98 11/26/16 22:00 - Medical History PMH: Anemia, Anxiety, Arthritis, Asthma, Back Problems, CAD, CVA (x 3, Protein C /S deficiency), Depression, HTN, Hypercholesterolemia, Hyperlipidemia, Migraine , Schizophrenia, Seizures, Sickle Cell Disease, TIA, Chronic Pain Denies: Chronic Kidney Disease - Family History Family History: States: Unknown Family Hx, [place] - Immunization History Hx Tetanus Toxoid Vaccination: Yes Hx Influenza Vaccination: No Hx Pneumococcal Vaccination: Yes - Home Medications Home Medications: Ambulatory Orders Medication Instructions Recorded Apixaban [Eliquis] 5 mg PO BID #0 tab 09/21/15 Atorvastatin [Lipitor] 10 mg PO HS 04/14/16 Gabapentin [Neurontin] 300 mg PO BID 04/14/16 HYDROmorphone [Dilaudid] 4 mg PO Q8 PRN 11/14/16 Topiramate [Topamax] 100 mg PO BID 11/14/16 - Allergies Allergies/Adverse Reactions: Allergies Allergy/AdvReac Type Severity Reaction Status Date / Time ketorolac tromethamine Allergy Mild SWELLING Verified 11/24/16 19:03 [From Toradol] naproxen [From Naprosyn] Allergy Mild URTICARIA Verified 11/24/16 19:03 polyethylene glycol 3350 Allergy Mild RASH Verified 11/24/16 19:03 [From Miralax] shellfish derived Allergy Mild ANAPHYLAXIS Verified 11/24/16 19:03 mushroom Allergy ANAPHYLAXIS Verified 11/24/16 19:03 ibuprofen [From Motrin] AdvReac Mild vomiting Verified 11/24/16 19:03 blood PORK AdvReac DIARRHEA Verified 11/24/16 19:03 nguyen Allergy Severe RASH Uncoded 11/24/16 19:03 Review of Systems Constitutional: Negative for: Fever, Chills Eyes: Negative for: Pain, Vision Change ENT: Negative for: Ear Pain, Ear Discharge Cardiovascular: Positive for: Light Headedness. Negative for: Chest Pain, Palpitations, Orthopnea Respiratory: Negative for: Cough, Shortness of Breath, SOB with Exertion, Pleuritic Pain Gastrointestinal: Negative for: Nausea, Vomiting, Abdominal Pain Genitourinary Female: Negative for: Dysuria, Frequency, Hematuria, Pelvic Pain Musculoskeletal: Positive for: Back Pain Skin: Negative for: Rash Neurological: Positive for: Dizziness. Negative for: Weakness, Numbness Physical Exam - Reviewed Vital Signs Reviewed: Yes - Physical Exam Appears: Positive for: Well, No Acute Distress Head Exam: Positive for: NORMOCEPHALIC Skin: Positive for: Normal Color, Warm Eye Exam: Positive for: Normal appearance, EOMI, PERRL. Negative for: Nystagmus Neck: Positive for: Painless ROM, Supple Cardiovascular/Chest: Positive for: Regular Rate, Rhythm, Chest Non Tender. Negative for: Edema, JVD, Murmur Respiratory: Positive for: Normal Breath Sounds. Negative for: Decreased Breath Sounds, Accessory Muscle Use, Wheezing Gastrointestinal/Abdominal: Positive for: Normal Exam, Bowel Sounds, Soft. Negative for: Tenderness Back: Negative for: L CVA Tenderness, R CVA Tenderness Extremity: Positive for: Normal ROM. 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 - Laboratory Results Result Diagrams: 11/26/16 22:52 11/26/16 22:52 - ECG O2 Sat by Pulse Oximetry: 98 - Progress ED Course And Treament: cbc cmp trop UA U Preg Chest Xray pain mangement IVF Disposition - Clinical Impression Clinical Impression: Dizziness of unknown cause - Patient ED Disposition Is Patient to be Admitted: No Discussed With DrTyler: Costa Jones Comment: States no need for admission, advised pt to follow up as outpatient Doctor Will See Patient In The: Office - Disposition Disposition: Routine/Home Disposition Time: 00:50 Condition: GOOD Additional Instructions: Pt advised to follow up with her PCP as outpatient Instructions: Dizziness (ED) Forms: [employer] (Pashto)
[2016-11-26] MEDS ORDERED: Sodium Chloride 0.9% 1,000 ML IV SCH (22:30)
[2016-11-26 23:03] LABS: HEMOGLOBIN 13.5 g/dL (12.0-16.0); MEAN CELL VOLUME 84.2 fl (81.0-99.0); MEAN CORPUSCULAR HEMOGLOBIN 28.3 pg (27.0-31.0); MEAN CORPUSCULAR HGB CONC 33.7 g/dL (33.0-37.0); RBC 4.77 Mil/uL (3.80-5.20); RED CELL DISTRIBUTION WIDTH 13.6 % (11.5-14.5); WHITE BLOOD COUNT 8.5 K/uL (4.8-10.8)
[2016-11-26 23:05] LABS: ALB/GLOB RATIO 1.2 (1.0-2.1); ALBUMIN 4.1 g/dL (3.5-5.0); ALT/SGPT 29 U/L (9-52); AST/SGOT 19 U/L (14-36); BLOOD UREA NITROGEN 7 mg/dl (7-17); CALCIUM 9.1 mg/dL (8.4-10.2); GFR AFRICAN-AMERICAN > 60; GFR NON-AFRICAN AMERICAN > 60
[2016-11-26 23:09] LABS: SQUAMOUS EPITHIAL 3 /hpf (0-5); URINE BACTERIA RARE (<OCC); URINE BILIRUBIN NEGATIVE (NEGATIVE); URINE BLOOD NEGATIVE (NEGATIVE); URINE CLARITY SLIGHTY-CLOUDY (Clear); URINE COLOR YELLOW (YELLOW); URINE GLUCOSE (UA) NEG (Normal); URINE LEUKOCYTE ESTERASE NEG Leu/uL (Negative); URINE NITRATE NEGATIVE (NEGATIVE); URINE PROTEIN NEGATIVE (NEGATIVE); URINE UROBILINOGEN 0.2-1.0 mg/dL (0.2-1.0)
[2016-11-26 23:53] LABS: INR 1.7 (0.9-1.2); PARTIAL THROMBOPLASTIN TIME 71.5 Seconds (25.6-37.1); PROTHROMBIN TIME 17.4 Seconds (9.8-13.1)
--- NOTE | 2016-11-27 07:10 | RAD ---
HISTORY: WEAKNESS COMPARISON: Chest x-ray 11/14/2016 TECHNIQUE: Chest one view . FINDINGS: LUNGS: No focal consolidation is seen. PLEURA: No pleural effusion is identified. CARDIOVASCULAR: Heart size is within normal limits. OSSEOUS STRUCTURES: Visualized osseous structures are unremarkable. VISUALIZED UPPER ABDOMEN: Unremarkable. OTHER FINDINGS: None. IMPRESSION: No acute cardiopulmonary process seen.
== END 2016-11-27 01:25 | disposition home or self-care (01) ==
LOC: H.ER 21:57
DX: R42 Dizziness and giddiness (principal); I25.10 Atherosclerotic heart disease of native coronary artery without angina pectoris; I10 Essential (primary) hypertension; E78.00 Pure hypercholesterolemia, unspecified; Z86.73 Personal history of transient ischemic attack (TIA), and cerebral infarction without residual deficits; Z72.0 Tobacco use

== ENCOUNTER 2016-12-03 03:42 | Emergency (ER) | payer MEDICAID ==
[2016-12-03 03:42] VITALS: BMI 21.5
[2016-12-03 03:59] VITALS: BP 123/56; PULSE 61; RESP 16; TEMP 98.2; O2SAT 100
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
== END 2016-12-03 06:36 | disposition home or self-care (01) ==
LOC: H.ER 03:42
DX: M79.644 Pain in right finger(s) (principal); R10.9 Unspecified abdominal pain; D57.1 Sickle-cell disease without crisis; K59.00 Constipation, unspecified; E78.5 Hyperlipidemia, unspecified; F20.9 Schizophrenia, unspecified; F41.9 Anxiety disorder, unspecified; I25.10 Atherosclerotic heart disease of native coronary artery without angina pectoris; Z79.01 Long term (current) use of anticoagulants; Z86.73 Personal history of transient ischemic attack (TIA), and cerebral infarction without residual deficits; Z76.5 Malingerer [conscious simulation]
CPT/HCPCS: 29130; 73140; 74022; 81025; 99283; G0328

== ENCOUNTER 2017-01-03 06:35 | Emergency (ER) | payer MEDICAID ==
[2017-01-03 06:54] VITALS: BMI 26.6
[2017-01-03 06:57] VITALS: RESP 16; O2SAT 100
--- NOTE | 2017-01-03 07:39 | ED PDOC ---
HPI: Abdomen Time Seen by Provider: 01/03/17 07:06 Chief Complaint (Nursing): Abdominal Pain History Per: Patient History/Exam Limitations: no limitations Onset/Duration Of Symptoms: Days (1), Gradual Severity: Mild Location Of Pain/Discomfort: Suprapubic Quality Of Discomfort: Cramping Associated Symptoms: Diarrhea. denies: Fever, Chills, Nausea, Vomiting, Back Pain, Chest Pain, Constipation, Urinary Symptoms Exacerbating Factors: None Alleviating Factors: None Additional History Per: Patient Additional Complaint(s): pt has chronic pain due to SC disease, known h/o of substance abuse, chornic condition first complaint shoulder pain worse with movement. pt stattes " i pulled a muscle: no hand n/t/w. pt now states persistent diarrhea after stopping narcotic pain medication. Past Medical History Reviewed: Historical Data, Nursing Documentation, Vital Signs Vital Signs: Last Vital Signs Temp 97.8 F 01/03/17 06:54 Pulse 91 H 01/03/17 06:54 Resp 16 01/03/17 06:54 BP 133/78 01/03/17 06:54 Pulse Ox 100 01/03/17 07:41 - Medical History PMH: Anemia, Anxiety, Arthritis, Asthma, Back Problems, CAD, CVA (x 3, Protein C /S deficiency), Depression, HTN, Hypercholesterolemia, Hyperlipidemia, Migraine , Schizophrenia, Seizures, Sickle Cell Disease, TIA, Chronic Pain Denies: Chronic Kidney Disease - Family History Family History: States: Unknown Family Hx, [place] - Living Arrangements Living Arrangements: With Family - Social History Current smoker - smoking cessation education provided: No - Immunization History Hx Tetanus Toxoid Vaccination: Yes Hx Influenza Vaccination: No Hx Pneumococcal Vaccination: Yes - Home Medications Home Medications: Ambulatory Orders Medication Instructions Recorded Apixaban [Eliquis] 5 mg PO BID #0 tab 09/21/15 Atorvastatin [Lipitor] 10 mg PO HS 04/14/16 Gabapentin [Neurontin] 600 mg PO TID 04/14/16 HYDROmorphone [Dilaudid] 4 mg PO Q8 PRN 11/14/16 Topiramate [Topamax] 100 mg PO BID 11/14/16 Docusate Sodium [Colace] 100 mg PO BID #14 capsule 12/03/16 Famotidine [Pepcid] 20 mg PO 12/26/16 Atropine/Diphenoxylate [Lonox 1 tab PO BID PRN #10 tab 01/03/17 0.025 MG-2.5 MG] - Allergies Allergies/Adverse Reactions: Allergies Allergy/AdvReac Type Severity Reaction Status Date / Time ketorolac tromethamine Allergy Mild SWELLING Verified 01/03/17 06:54 [From Toradol] naproxen [From Naprosyn] Allergy Mild URTICARIA Verified 01/03/17 06:54 polyethylene glycol 3350 Allergy Mild RASH Verified 01/03/17 06:54 [From Miralax] shellfish derived Allergy Mild ANAPHYLAXIS Verified 01/03/17 06:54 mushroom Allergy ANAPHYLAXIS Verified 01/03/17 06:54 ibuprofen [From Motrin] AdvReac Mild vomiting Verified 01/03/17 06:54 blood PORK AdvReac DIARRHEA Verified 01/03/17 06:54 nguyen Allergy Severe RASH Uncoded 01/03/17 06:54 Review of Systems ROS Statement: Except As Marked, All Systems Reviewed And Found Negative Constitutional: Negative for: Fever, Chills Cardiovascular: Negative for: Chest Pain, Palpitations Respiratory: Negative for: Cough, Shortness of Breath Gastrointestinal: Positive for: Nausea, Abdominal Pain, Diarrhea. Negative for : Vomiting, Hematochezia, Hematemesis Genitourinary Female: Negative for: Dysuria, Vaginal Discharge, Vaginal Bleeding , Pelvic Pain Neurological: Negative for: Weakness, Numbness, Headache Physical Exam - Reviewed Nursing Documentation Reviewed: Yes Vital Signs Reviewed: Yes - Physical Exam Appears: Positive for: Well, No Acute Distress Head Exam: Positive for: ATRAUMATIC, NORMAL INSPECTION, NORMOCEPHALIC Skin: Positive for: Normal Color, Warm, Dry Eye Exam: Positive for: Normal appearance, EOMI, PERRL Neck: Positive for: Normal, Painless ROM, Supple Cardiovascular/Chest: Positive for: Regular Rate, Rhythm, Chest Non Tender. Negative for: Edema, Gallop Respiratory: Positive for: Normal Breath Sounds. Negative for: Decreased Breath Sounds, Accessory Muscle Use, Crackles, Rales, Rhonchi, Stridor, Wheezing Gastrointestinal/Abdominal: Positive for: Normal Exam, Bowel Sounds, Soft. Negative for: Tenderness Back: Positive for: Normal Inspection. Negative for: L CVA Tenderness, R CVA Tenderness Extremity: Positive for: Other (mild pain with rom of left shoulder qarm and hand nvi). Negative for: Tenderness, Pedal Edema, Calf Tenderness, Deformity, Swelling Neurologic/Psych: Positive for: Alert, catcher filter tip II-XII, Oriented, Mood/Affect (calm) , Gait (steady). Negative for: Motor/Sensory Deficits - Laboratory Results Result Diagrams: 01/03/17 07:47 01/03/17 07:47 - ECG O2 Sat by Pulse Oximetry: 100 Pulse Ox Interpretation: Normal - Progress ED Course And Treament: left shoulder xray 3 views no fx or dislocation no sts, abd xray 2 views no dilated bowel loops no fa under diaphragm, non specific bg pattern. Re-evaluation Time: 09:00 Condition: Improved Disposition - Clinical Impression Clinical Impression: Diarrhea, Rotator cuff injury - Patient ED Disposition Is Patient to be Admitted: No Counseled Patient/Family Regarding: Studies Performed, Diagnosis, Need For Followup, Rx Given - Disposition Referrals: [facility] [Outside] (2 to 3 days) Disposition: Routine/Home Disposition Time: 09:00 Condition: GOOD Prescriptions: Atropine/Diphenoxylate [Lonox 0.025 MG-2.5 MG] 1 tab PO BID PRN #10 tab PRN Reason: Diarrhea Instructions: Rotator Cuff Injury (ED), Chronic Diarrhea (ED) Forms: [employer] (Indonesian)
[2017-01-03 08:04] LABS: ALB/GLOB RATIO 1.2 (1.0-2.1); ALKALINE PHOSPHATASE 88 U/L (38-126); ALT/SGPT 29 U/L (9-52); AMYLASE 60 U/L (30-110); AST/SGOT 25 U/L (14-36); BILIRUBIN,TOTAL 0.4 mg/dl (0.2-1.3); BLOOD UREA NITROGEN 12 mg/dl (7-17); CALCIUM 9.2 mg/dL (8.4-10.2); CARBON DIOXIDE 25 mmol/L (22-30); CHLORIDE 103 mmol/L (98-107); GFR AFRICAN-AMERICAN > 60; GLUCOSE,RANDOM 89 mg/dL (65-105); LIPASE 58 U/L (23-300); POTASSIUM 3.4 MMOL/L (3.6-5.0); SODIUM 140 mmol/l (132-148); TOTAL PROTEIN 8.1 G/DL (6.3-8.2)
[2017-01-03 08:05] LABS: BASO # 0.1 K/uL (0.0-0.2); BASO % 0.7 % (0.0-2.0); EOS # 0.3 K/uL (0.0-0.7); EOS % 2.5 % (0.0-4.0); HEMATOCRIT 39.5 % (34.0-47.0); LYMPH # 2.7 K/uL (1.0-4.3); LYMPH % 24.7 % (20.0-40.0); MEAN CELL VOLUME 84.4 fl (81.0-99.0); MEAN CORPUSCULAR HEMOGLOBIN 28.1 pg (27.0-31.0); MEAN CORPUSCULAR HGB CONC 33.3 g/dL (33.0-37.0); MEAN PLATELET VOLUME 7.9 fl (7.2-11.7); MONO % 9.2 % (0.0-10.0); NEUT # 6.8 K/uL (1.8-7.0); NEUT % 62.9 % (50.0-75.0); NRBC % 0.1 % (0.0-0.0); RED CELL DISTRIBUTION WIDTH 13.8 % (11.5-14.5); WHITE BLOOD COUNT 10.8 K/uL (4.8-10.8)
[2017-01-03 09:06] LABS: RBC URINE 3 /hpf (0-3); URINE BACTERIA RARE (<OCC); URINE BILIRUBIN NEGATIVE (NEGATIVE); URINE BLOOD NEGATIVE (NEGATIVE); URINE COLOR YELLOW (YELLOW); URINE GLUCOSE (UA) NEG (Normal); URINE KETONE NEGATIVE (NEGATIVE); URINE LEUKOCYTE ESTERASE NEG Leu/uL (Negative); URINE PROTEIN NEGATIVE (NEGATIVE); URINE UROBILINOGEN 0.2-1.0 mg/dL (0.2-1.0); WBC URINE 1 /hpf (0-5)
--- NOTE | 2017-01-03 09:46 | RAD ---
PROCEDURE: Radiographs of the Left Shoulder HISTORY: pain COMPARISON: The the FINDINGS: BONES: Normal. No fracture. JOINTS: Normal. Glenohumeral and acromioclavicular joints preserved. No osteoarthritis. SOFT TISSUES: Normal. OTHER FINDINGS: None. IMPRESSION: Normal radiographs of the left shoulder.
--- NOTE | 2017-01-03 09:57 | RAD ---
HISTORY: pain COMPARISON: Comparison made with chest radiograph 11/26/2016. Comparison also made with prior obstructive 12/03/2016 FINDINGS: BOWEL: Normal nonobstructive bowel gas pattern. Air is seen throughout normal-appearing colon. BONES: Normal. OTHER FINDINGS: Heart size normal. Lung sung clear without focal consolidation or effusion. IMPRESSION: No acute cardiopulmonary disease. No evidence of acute mechanical bowel obstruction. No gross free air.
[2017-01-03 10:41] VITALS: BP 132/77; PULSE 79; TEMP 98.1
== END 2017-01-03 10:39 | disposition home or self-care (01) ==
LOC: H.ER 06:35
DX: R19.7 Diarrhea, unspecified (principal); S49.92XA Unspecified injury of left shoulder and upper arm, initial encounter; X50.9XXA Other and unspecified overexertion or strenuous movements or postures, initial encounter; Y92.89 Other specified places as the place of occurrence of the external cause; E78.00 Pure hypercholesterolemia, unspecified; F20.9 Schizophrenia, unspecified; F32.9 Major depressive disorder, single episode, unspecified; F41.9 Anxiety disorder, unspecified; G89.29 Other chronic pain; I10 Essential (primary) hypertension; I25.10 Atherosclerotic heart disease of native coronary artery without angina pectoris; Z79.01 Long term (current) use of anticoagulants; Z86.73 Personal history of transient ischemic attack (TIA), and cerebral infarction without residual deficits; J45.909 Unspecified asthma, uncomplicated

== ENCOUNTER 2017-06-26 22:50 | Emergency (ER) | payer MEDICAID ==
[2017-06-26 22:51] VITALS: BMI 26.6
[2017-06-26 23:00] VITALS: BP 111/60; PULSE 87; RESP 17; TEMP 98.7; O2SAT 98
[2017-06-26] MEDS ORDERED: Albuterol-Ipratrop 3 mg / 0.5 (3 ml) UD IH STA (23:15)
--- NOTE | 2017-06-26 23:22 | ED PDOC ---
HPI: CCC, URI, Sore Throat Time Seen by Provider: 06/26/17 23:08 Chief Complaint (Nursing): Flu-like Symptoms Chief Complaint (Provider): cough, congestion History Per: Patient History/Exam Limitations: no limitations Onset/Duration Of Symptoms: Days (1) Current Symptoms Are (Timing): Still Present Additional Complaint(s): 31 y/o female presents for evaluation of productive cough, nasal congestion x 1 day. Patient states she recently finished zpak for throat infection. Denies fever, nausea/vomiting, chest pain, shortness of breath, palpitations. Past Medical History Reviewed: Historical Data, Nursing Documentation, Vital Signs Vital Signs: Last Vital Signs Temp 98.7 F 06/26/17 22:57 Pulse 87 06/26/17 22:57 Resp 17 06/26/17 22:57 BP 111/60 06/26/17 22:57 Pulse Ox 98 06/27/17 01:43 - Medical History PMH: Anemia, Anxiety, Arthritis, Asthma, Back Problems, CAD, CVA (x 3, Protein C /S deficiency), Depression, HTN, Hypercholesterolemia, Hyperlipidemia, Migraine , Schizophrenia, Seizures, Sickle Cell Disease, TIA, Chronic Pain Denies: Chronic Kidney Disease - Family History Family History: States: Unknown Family Hx, [place] - Social History Current smoker - smoking cessation education provided: Yes - Immunization History Hx Tetanus Toxoid Vaccination: Yes Hx Influenza Vaccination: No Hx Pneumococcal Vaccination: Yes - Home Medications Home Medications: Ambulatory Orders Medication Instructions Recorded Apixaban [Eliquis] 5 mg PO BID #0 tab 09/21/15 Atorvastatin [Lipitor] 10 mg PO HS 04/14/16 Gabapentin [Neurontin] 300 mg PO BID 04/14/16 HYDROmorphone [Dilaudid] 4 mg PO Q8 PRN 11/14/16 Topiramate [Topamax] 100 mg PO BID 11/14/16 DiphenhydrAMINE [Benadryl] 50 mg PO BID #12 cap 02/18/17 Guaifen/Dextromethorphan/PE 1 each PO Q6 #20 tablet 06/01/17 [Mucinex Fast-Max Congest-Cough] Fluticasone Nasal [Flonase] 1 actuation NS BID #1 bottle 06/27/17 guaiFENesin/Dextromethorphan 1 tab PO Q6 PRN #20 tab 06/27/17 [guaiFENesin/DM 600-30 mg] - Allergies Allergies/Adverse Reactions: Allergies Allergy/AdvReac Type Severity Reaction Status Date / Time ketorolac tromethamine Allergy Mild SWELLING Verified 04/25/17 21:42 [From Toradol] naproxen [From Naprosyn] Allergy Mild URTICARIA Verified 04/25/17 21:42 polyethylene glycol 3350 Allergy Mild RASH Verified 04/25/17 21:42 [From Miralax] shellfish derived Allergy Mild ANAPHYLAXIS Verified 04/25/17 21:42 mushroom Allergy ANAPHYLAXIS Verified 04/25/17 21:42 ibuprofen [From Motrin] AdvReac Mild vomiting Verified 04/25/17 21:42 blood PORK AdvReac DIARRHEA Verified 04/25/17 21:42 nguyen Allergy Severe RASH Uncoded 04/25/17 21:42 Review of Systems ROS Statement: Except As Marked, All Systems Reviewed And Found Negative ENT: Positive for: Nose Congestion Respiratory: Positive for: Cough, Sputum Physical Exam - Reviewed Nursing Documentation Reviewed: Yes Vital Signs Reviewed: Yes - Physical Exam Appears: Positive for: Well, Non-toxic, No Acute Distress Head Exam: Positive for: ATRAUMATIC, NORMAL INSPECTION, NORMOCEPHALIC Skin: Positive for: Normal Color Eye Exam: Positive for: Normal appearance ENT: Positive for: Nasal Congestion Cardiovascular/Chest: Positive for: Regular Rate, Rhythm Respiratory: Positive for: Normal Breath Sounds Gastrointestinal/Abdominal: Positive for: Normal Exam Back: Positive for: Normal Inspection Extremity: Positive for: Normal ROM Neurologic/Psych: Positive for: Alert, Oriented - ECG O2 Sat by Pulse Oximetry: 98 - Radiology X-Ray: Viewed By Ak X-Ray Interpretation: No Acute Disease - Progress ED Course And Treament: xray, duoneb Patient educated on findings, discharged with rx flonase, mucinex dm Advised fluids. Rest. Follow up PMD 2-3 days Return precautions given. Disposition - Clinical Impression Clinical Impression: URI (upper respiratory infection) - Patient ED Disposition Is Patient to be Admitted: No Counseled Patient/Family Regarding: Studies Performed, Diagnosis, Need For Followup, Rx Given - Disposition Disposition: Routine/Home Disposition Time: 01:43 Condition: IMPROVED Prescriptions: Fluticasone Nasal [Flonase] 1 actuation NS BID #1 bottle guaiFENesin/Dextromethorphan [guaiFENesin/DM 600-30 mg] 1 tab PO Q6 PRN #20 tab PRN Reason: cough and congestion Instructions: Viral Upper Respiratory Infection, Adult (DC) Forms: Why Not Give Back (Russian)
--- NOTE | 2017-06-27 09:48 | RAD ---
HISTORY: cough COMPARISON: 11/26/2016 TECHNIQUE: Chest PA and lateral FINDINGS: LUNGS: No active pulmonary disease. PLEURA: No significant pleural effusion identified. No pneumothorax apparent. CARDIOVASCULAR: Normal. OSSEOUS STRUCTURES: No significant abnormalities. VISUALIZED UPPER ABDOMEN: Normal. OTHER FINDINGS: None. IMPRESSION: No active disease.
== END 2017-06-27 02:05 | disposition home or self-care (01) ==
LOC: H.ER 22:50
DX: J06.9 Acute upper respiratory infection, unspecified (principal); E78.00 Pure hypercholesterolemia, unspecified; F20.9 Schizophrenia, unspecified; F32.9 Major depressive disorder, single episode, unspecified; F41.9 Anxiety disorder, unspecified; I10 Essential (primary) hypertension; I25.10 Atherosclerotic heart disease of native coronary artery without angina pectoris; Z79.01 Long term (current) use of anticoagulants; Z86.73 Personal history of transient ischemic attack (TIA), and cerebral infarction without residual deficits; Z88.6 Allergy status to analgesic agent; G89.29 Other chronic pain; J45.909 Unspecified asthma, uncomplicated; F17.200 Nicotine dependence, unspecified, uncomplicated

== ENCOUNTER 2017-07-18 23:18 | Emergency (ER) | payer MEDICAID ==
[2017-07-18 23:18] VITALS: BMI 26.6
[2017-07-18 23:53] VITALS: RESP 16
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
[2017-07-19 02:39] LABS: BASO # 0.1 K/uL (0.0-0.2); BASO % 0.9 % (0.0-2.0); EOS # 0.4 K/uL (0.0-0.7); EOS % 3.2 % (0.0-4.0); HEMOGLOBIN 12.8 g/dL (12.0-16.0); LYMPH # 2.9 K/uL (1.0-4.3); LYMPH % 23.7 % (20.0-40.0); MEAN CELL VOLUME 81.4 fl (81.0-99.0); MEAN CORPUSCULAR HEMOGLOBIN 26.4 pg (27.0-31.0); MEAN CORPUSCULAR HGB CONC 32.4 g/dL (33.0-37.0); MEAN PLATELET VOLUME 8.8 fl (7.2-11.7); MONO # 1.3 K/uL (0.0-0.8); MONO % 10.3 % (0.0-10.0); NEUT # 7.6 K/uL (1.8-7.0); NEUT % 61.9 % (50.0-75.0); RBC 4.86 Mil/uL (3.80-5.20); RED CELL DISTRIBUTION WIDTH 13.8 % (11.5-14.5); WHITE BLOOD COUNT 12.4 K/uL (4.8-10.8)
[2017-07-19 02:49] LABS: SQUAMOUS EPITHIAL 1 /hpf (0-5); URINE BILIRUBIN NEGATIVE (NEGATIVE); URINE BLOOD NEGATIVE (NEGATIVE); URINE CLARITY CLEAR (Clear); URINE COLOR YELLOW (YELLOW); URINE GLUCOSE (UA) NEG (Normal); URINE LEUKOCYTE ESTERASE NEG Leu/uL (Negative); URINE PROTEIN NEGATIVE (NEGATIVE); URINE UROBILINOGEN 0.2-1.0 mg/dL (0.2-1.0)
[2017-07-19 02:53] LABS: BLOOD UREA NITROGEN 11 mg/dl (7-17); CALCIUM 8.9 mg/dL (8.4-10.2); GFR AFRICAN-AMERICAN > 60; GFR NON-AFRICAN AMERICAN > 60
[2017-07-19 03:02] LABS: BARBITURATES, UR NEGATIVE (NEGATIVE); BENZODIAZEPINES, UR NEGATIVE (NEGATIVE); OPIATES, UR POSITIVE (NEGATIVE); PHENCYCLIDINE, UR NEGATIVE (NEGATIVE)
[2017-07-19 03:02] LABS: B-TYPE NATRIURETIC PEPTIDE 117 pg/ml (0-450)
--- NOTE | 2017-07-19 04:18 | US ---
EXAM: US Duplex Bilateral Lower Extremity Veins EXAM DATE/TIME: 07/19/2017 12:26 AM CLINICAL HISTORY: 31 years old, female; Pain; Leg, lower; Bilateral; Additional info: HX of protein c/s def, R/O dvt TECHNIQUE: Real-time duplex ultrasound scan of the bilateral lower extremity veins integrating B-mode two-dimensional vascular structure, Doppler spectral analysis, color flow Doppler imaging and compression. COMPARISON: No relevant prior studies available. FINDINGS: Normal-appearing compressibility, flow and augmentation response are seen within the common femoral, femoral and popliteal veins bilaterally. Flow is seen in the posterior tibial veins bilaterally. No evidence of deep or superficial venous thrombosis. Incidental note is made of a small lymph node in the left groin region, measuring 1.4 x 1.2 x 0.5 cm, most likely reactive in etiology. IMPRESSION: No evidence of deep venous thrombosis in either leg. See above for remaining findings.
[2017-07-19 04:51] VITALS: BP 122/63; PULSE 88; TEMP 98.1; O2SAT 99
== END 2017-07-19 04:51 | disposition home or self-care (01) ==
LOC: H.ER 23:18
DX: R60.0 Localized edema (principal); Z86.59 Personal history of other mental and behavioral disorders; G40.909 Epilepsy, unspecified, not intractable, without status epilepticus; I10 Essential (primary) hypertension; F17.210 Nicotine dependence, cigarettes, uncomplicated; G89.29 Other chronic pain; J45.909 Unspecified asthma, uncomplicated; Z86.718 Personal history of other venous thrombosis and embolism; Z86.73 Personal history of transient ischemic attack (TIA), and cerebral infarction without residual deficits; Z88.6 Allergy status to analgesic agent; I25.10 Atherosclerotic heart disease of native coronary artery without angina pectoris

== ENCOUNTER 2017-11-30 21:38 | Observation (INO) | payer MEDICAID ==
[2017-11-30 21:39] VITALS: BMI 26.6
[2017-11-30 22:36] LABS: BASO # 0.1 K/uL (0.0-0.2); BASO % 1.2 % (0.0-2.0); EOS # 0.5 K/uL (0.0-0.7); EOS % 6.6 % (0.0-4.0); LYMPH # 1.8 K/uL (1.0-4.3); LYMPH % 22.1 % (20.0-40.0); MEAN CELL VOLUME 84.2 fl (81.0-99.0); MEAN CORPUSCULAR HEMOGLOBIN 27.6 pg (27.0-31.0); MEAN CORPUSCULAR HGB CONC 32.8 g/dL (33.0-37.0); MEAN PLATELET VOLUME 8.5 fl (7.2-11.7); MONO # 0.7 K/uL (0.0-0.8); MONO % 8.6 % (0.0-10.0); NEUT % 61.5 % (50.0-75.0); NRBC % 0.1 % (0.0-0.0); RBC 4.69 Mil/uL (3.80-5.20); RED CELL DISTRIBUTION WIDTH 13.5 % (11.5-14.5); WHITE BLOOD COUNT 8.2 K/uL (4.8-10.8)
[2017-11-30 22:47] LABS: ALB/GLOB RATIO 1.1 (1.0-2.1); ALT/SGPT 40 U/L (9-52); AST/SGOT 32 U/L (14-36); BLOOD UREA NITROGEN 10 mg/dl (7-17); CALCIUM 9.1 mg/dL (8.4-10.2); GFR AFRICAN-AMERICAN > 60; GFR NON-AFRICAN AMERICAN > 60
--- NOTE | 2017-11-30 22:51 | ED PDOC ---
HPI: Neurologic - General Time Seen by Provider: 11/30/17 21:58 Chief Complaint (Nursing): Weakness/Neurological Deficit Chief Complaint (Provider): LEFT leg weakness and slurred speech Source: patient Exam Limitations: intoxication (morphine and alcohol) - History of Present Illness Associated Symptoms: confusion, seizures, sleepy, slurred speech, trouble walking, vision changes, weakness Allergies/Adverse Reactions: Allergies ketorolac tromethamine [From Toradol] Allergy (Mild, Verified 07/18/17 23:48) SWELLING naproxen [From Naprosyn] Allergy (Mild, Verified 07/18/17 23:48) URTICARIA polyethylene glycol 3350 [From Miralax] Allergy (Mild, Verified 07/18/17 23:48) RASH shellfish derived Allergy (Mild, Verified 07/18/17 23:48) ANAPHYLAXIS mushroom Allergy (Verified 07/18/17 23:48) ANAPHYLAXIS ibuprofen [From Motrin] Adverse Reaction (Mild, Verified 07/18/17 23:48) vomiting blood PORK Adverse Reaction (Verified 07/18/17 23:48) DIARRHEA nguyen Allergy (Severe, Uncoded 07/18/17 23:48) RASH Home Medications: Ambulatory Orders Apixaban [Eliquis] 5 mg PO BID #0 tab 09/21/15 Atorvastatin [Lipitor] 10 mg PO HS 04/14/16 Gabapentin [Neurontin] 300 mg PO BID 04/14/16 HYDROmorphone [Dilaudid] 4 mg PO Q8 PRN 11/14/16 Topiramate [Topamax] 100 mg PO BID 11/14/16 DiphenhydrAMINE [Benadryl] 50 mg PO BID #12 cap 02/18/17 Guaifen/Dextromethorphan/PE [Mucinex Fast-Max Congest-Cough] 1 each PO Q6 #20 tablet 06/01/17 Fluticasone Nasal [Flonase] 1 actuation NS BID #1 bottle 06/27/17 guaiFENesin/Dextromethorphan [Mucinex-DM 600-30 mg] 1 tab PO Q6 PRN #20 tab Additional Complaint(s): History obtained from patient, but difficult due to patient's possible intoxication and excessive sleepiness. Admits she took a "morphine pill" and drank alcohol prior to arrival. Pt reports that 4 days ago had seizure. She admits noncompliance with medications and that she gets seizures often. Sustained a head injury with scalp bleeding at that time. But thought she was OK and did not go to hospital. Two days ago, she developed slurred speech, facial droop and LEFT sided weakness (leg worse than arm), LEFT eye double and blurry vision, and feeling "stupid". Thought it would go away but when it didn't this morning she presented to another hospital. She felt they were taking too long and left AMA. Presents now with persistent symptoms. Take Eliquis for "clotting disorder" PMD Dr Jones NIHSS Stroke Scale - Date/Time Evaluation Performed Date Performed: 11/30/17 Time Performed: 22:00 When Was NIHSS Performed: Baseline - How Severe is the Stroke Level of Consciousness: 1=Drowsy LOC to Questions: 0=Both comments correct LOC to commands: 0=Obeys both correctly Best Gaze: 1=Partial gaze palsy Visual: 1=Partial hemianopia Facial: 2=Partial (lower face paralysis) Motor Arm - Left: 1=Drift noted before 10 sec Motor Arm - Right: 0=No drift Motor Leg - Left: 2=Falls before 5 sec Motor Leg - Right: 0=No drift Limb Ataxia: 1=Present Upper or Lower Sensory: 0=Normal Best Language: 0=No aphasia Dysarthia: 1=Mild to moderate slurring Extinction & Inattention (Neglect): 0=Normal, no object Score: 10 Past Medical History Reviewed: Historical Data, Nursing Documentation, Vital Signs Vital Signs: Last Vital Signs Temp 98.3 F 11/30/17 21:43 Pulse 90 11/30/17 21:43 Resp 20 11/30/17 21:43 BP 123/84 11/30/17 21:43 Pulse Ox 96 11/30/17 21:43 - Medical History PMH: Anemia, Anxiety, Arthritis, Asthma, Back Problems, CAD, CVA (x 3, Protein C /S deficiency), Depression, Deep Vein Thrombosis, HTN, Hypercholesterolemia, Hyperlipidemia, Migraine, Schizophrenia, Seizures, Sickle Cell Disease, TIA, Chronic Pain Denies: Chronic Kidney Disease Other PMH: "Clotting disorder" - Family History Family History: States: [place] - Social History Alcohol: Occasional Drugs: Prescription medications - Immunization History Hx Tetanus Toxoid Vaccination: Yes Hx Influenza Vaccination: No Hx Pneumococcal Vaccination: Yes - Home Medications Home Medications: Ambulatory Orders Medication Instructions Recorded Apixaban [Eliquis] 5 mg PO BID #0 tab 09/21/15 Atorvastatin [Lipitor] 10 mg PO HS 04/14/16 Gabapentin [Neurontin] 300 mg PO BID 04/14/16 HYDROmorphone [Dilaudid] 4 mg PO Q8 PRN 11/14/16 Topiramate [Topamax] 100 mg PO BID 11/14/16 DiphenhydrAMINE [Benadryl] 50 mg PO BID #12 cap 02/18/17 Guaifen/Dextromethorphan/PE 1 each PO Q6 #20 tablet 06/01/17 [Mucinex Fast-Max Congest-Cough] Fluticasone Nasal [Flonase] 1 actuation NS BID #1 bottle 06/27/17 guaiFENesin/Dextromethorphan 1 tab PO Q6 PRN #20 tab 06/27/17 [Mucinex-DM 600-30 mg] - Allergies Allergies/Adverse Reactions: Allergies Allergy/AdvReac Type Severity Reaction Status Date / Time ketorolac tromethamine Allergy Mild SWELLING Verified 07/18/17 23:48 [From Toradol] naproxen [From Naprosyn] Allergy Mild URTICARIA Verified 07/18/17 23:48 polyethylene glycol 3350 Allergy Mild RASH Verified 07/18/17 23:48 [From Miralax] shellfish derived Allergy Mild ANAPHYLAXIS Verified 07/18/17 23:48 mushroom Allergy ANAPHYLAXIS Verified 07/18/17 23:48 ibuprofen [From Motrin] AdvReac Mild vomiting Verified 07/18/17 23:48 blood PORK AdvReac DIARRHEA Verified 07/18/17 23:48 nguyen Allergy Severe RASH Uncoded 07/18/17 23:48 Review of Systems ROS Statement: Except As Marked, All Systems Reviewed And Found Negative Eyes: Positive for: Vision Change. Negative for: Redness Neurological: Positive for: Weakness, Incoordination, Change in Speech, Confusion, Seizures, Headache, Dizziness Physical Exam - Reviewed Nursing Documentation Reviewed: Yes Vital Signs Reviewed: Yes - Physical Exam Appears: Positive for: In Acute Distress (excessively sleepy) Head Exam: Positive for: NORMOCEPHALIC (LEFT occiput hematoma with healed superficial laceration <0.5cm) Skin: Positive for: Warm, Dry Eye Exam: Positive for: PERRL, Other (LEFT eye limited lateral gaze, pupils small and sluggish) ENT: Positive for: Other (tacky mucus membranes) Neck: Positive for: Painless ROM, Supple Cardiovascular/Chest: Positive for: Regular Rate, Rhythm. Negative for: Murmur Respiratory: Positive for: Normal Breath Sounds. Negative for: Wheezing Gastrointestinal/Abdominal: Positive for: Soft. Negative for: Tenderness Back: Positive for: Normal Inspection. Negative for: Decreased ROM Extremity: Positive for: Normal ROM. Negative for: Deformity Lymphatic: Negative for: Adenopathy Neurologic/Psych: Positive for: Oriented (x3), Motor/Sensory Deficits (LEFT leg 4/5 strength), Mood/Affect (flat mood and affect), Facial Droop (LEFT including brow), Other (slurred speech). Negative for: Alert - Laboratory Results Result Diagrams: 11/30/17 22:25 11/30/17 22:25 - ECG ECG: Positive for: Interpreted By Me ECG Rhythm: Positive for: Sinus Rhythm, ST/T Changes (T wave inversions inferolateral leads, new c/w previous EKG Apr 2017) O2 Sat by Pulse Oximetry: 96 (RA) Pulse Ox Interpretation: Normal Medical Decision Making Medical Decision Making: Time: 2224 Plan: -- Type and Screen -- CT Head w/o Contrast -- EKG -- Alcohol Serum -- CMP -- Urine Drug Screen -- Troponin I -- ED Urine -- ED Urine Dipstick -- CBC with differentials -- PTT -- Prothrombin Time -- Chief Program Officer -- IV Insertion -- Glucose, Blood, POC Time: 0000 -- Patient endorsed to Dr. Pack, pending CT, troponin and consultations. Scribe Attestation: Documented by Toin Carreon acting as a scribe for Dr. Bijal Roldan. Provider Scribe Attestation: All medical record entries made by the Scribe were at my direction and personally dictated by me. I have reviewed the chart and agree that the record accurately reflects my personal performance of the medical decision making for this patient. I have also personally directed, reviewed, and agree with the discharge instructions and disposition. Disposition - Clinical Impression Clinical Impression: Seizure, Substance abuse, Head injury, Left-sided weakness, Left hemiparesis - Patient ED Disposition Is Patient to be Admitted: Transfer of Care - Disposition Disposition: Transfer of Care Disposition Time: 00:00 Condition: FAIR Patient Signed Over To: Lindsay Pack
[2017-11-30 23:09] LABS: BARBITURATES, UR NEGATIVE (NEGATIVE); BENZODIAZEPINES, UR POSITIVE (NEGATIVE); OPIATES, UR POSITIVE (NEGATIVE); PHENCYCLIDINE, UR NEGATIVE (NEGATIVE)
[2017-11-30 23:29] LABS: PROTHROMBIN TIME 11.3 Seconds (9.8-13.1)
[2017-11-30 23:31] LABS: PARTIAL THROMBOPLASTIN TIME 33.7 Seconds (25.6-37.1)
--- NOTE | 2017-12-01 00:19 | ED PDOC ---
- Laboratory Results Result Diagrams: 11/30/17 22:25 11/30/17 22:25 - ECG O2 Sat by Pulse Oximetry: 96 (RA) Pulse Ox Interpretation: Normal Medical Decision Making Medical Decision Making: Time: 0000 -- Patient endorsed to me by Dr. Roldan, pending CT, troponin and consultations. Time: 26 CT RESULTS FINDINGS: No acute cerebral cortical infarct is seen. MR of the brain may be considered for the imaging evaluation of acute infarction. No intracranial hemorrhage is found.If concern for cerebral aneurysm consider MRA followup, or as clinically indicated. No mass effect is found in the brain. The ventricles, sulci and basal cisterns appear unremarkable. The orbits are unremarkable. The visualized paranasal demonstrate mild mucosal thickening. Petrous temporal bones demonstrate unremarkable mastoid and petrous air cells. The calvarium appears intact. IMPRESSION: No evidence for intracranial hemorrhage or mass. Follow up as clinically indicated Thank you for allowing us to participate in the care of your patient. Dictated and Authenticated by: Westley Bashir MD 12/01/2017 12:27 AM Eastern Time ([place] & [place]) Scribe Attestation: Documented by Toni Carreon acting as a scribe for Dr. Lindsay Pack MD. Provider Scribe Attestation: All medical record entries made by the Scribe were at my direction and personally dictated by me. I have reviewed the chart and agree that the record accurately reflects my personal performance of the history, physical exam, medical decision making, and the department course for this patient. I have also personally directed, reviewed, and agree with the discharge instructions and disposition. Disposition Discussed With : Costa Jones Doctor Will See Patient In The: Hospital Counseled Patient/Family Regarding: Studies Performed, Diagnosis - Clinical Impression Clinical Impression: Left hemiparesis, Substance abuse - POA Present On Arrival: None - Disposition Disposition: Hospitalized as Observation Patient Disposition Time: 00:41 Condition: FAIR
[2017-12-01] MEDS ORDERED: Dextrose 5%/Lactated Ringer's 1,000 ML IV SCH (03:45)
--- NOTE | 2017-12-01 07:38 | CARD ---
APPROVED REPORT Date of service: 11/30/2017 <Conclusion> Normal sinus rhythm Cannot rule out Inferior infarct, age undetermined Abnormal ECG
--- NOTE | 2017-12-01 10:10 | CT ---
Date of service: 11/30/2017 PROCEDURE: CT HEAD WITHOUT CONTRAST. HISTORY: LEFT sided weakness h/o CVA COMPARISON: 11/13/2016 TECHNIQUE: Axial computed tomography images were obtained through the head/brain without intravenous contrast. Radiation dose: Total exam DLP = 723.45 mGy-cm. This CT exam was performed using one or more of the following dose reduction techniques: Automated exposure control, adjustment of the mA and/or kV according to patient size, and/or use of iterative reconstruction technique. FINDINGS: HEMORRHAGE: No intracranial hemorrhage. BRAIN: No mass effect or edema. No atrophy or chronic microvascular ischemic changes. VENTRICLES: Unremarkable. No hydrocephalus. CALVARIUM: Unremarkable. PARANASAL SINUSES: Unremarkable as visualized. No significant inflammatory changes. MASTOID AIR CELLS: Unremarkable as visualized. No inflammatory changes. OTHER FINDINGS: None. IMPRESSION: No intracranial mass, hemorrhage or evidence of acute infarct. No interval change. The preliminary findings for this examination were reported by [facility] at 12:27 a.m. on 12/01/2017. There is concurrence of this report with the preliminary findings.
[2017-12-01] MEDS: Dextrose 5%/0.45% NS 1,000 ML IV SCH (12:26)
--- NOTE | 2017-12-01 22:37 | CP.PCM.HP ---
History of Present Illness - History of Present Illness History of Present Illness: This is a 32 y/o female admitted for change in mental state after overusing drugs such as opiods and cocaine. She was brought to ER and claimed that she had extremity weakness with an impression of possible stroke. At the floor patient was noted to be sleeping most of the time. She responded to questions only to fall back to sleep again. There was no noticeable facial droop or extremity weakness. Initial workup showed to have positive for opiod and cocaine. Patient admits to using a lot of cocaine few days prior to Er visit and that she had not slept for few days. Present on Admission - Present on Admission Any Indicators Present on Admission: No History of Uncontrolled Diabetes: No Urinary Catheter: No Decubitus Ulcer Present: No Review of Systems - Constitutional Constitutional: Daytime Sleepiness - Psychiatric Psychiatric: Behavioral Changes, Confusion Additional comments: excessive drug use Past Patient History - Infectious Disease Hx of Infectious Diseases: None - Tetanus Immunizations Tetanus Immunization: Unknown - Past Medical History & Family History Past Medical History?: Yes - Past Social History Smoking Status: Current Some Days Smoker - CARDIAC Hx Hypercholesterolemia: Yes Hx Hypertension: Yes - PULMONARY Hx Asthma: Yes - NEUROLOGICAL Hx Migraine: Yes Hx Seizures: Yes Hx Transient Ischemic Attacks (TIA): Yes - HEENT Hx HEENT Problems: No Other/Comment: wears glasses - RENAL Hx Chronic Kidney Disease: No - ENDOCRINE/METABOLIC Hx Endocrine Disorders: No Other/Comment: pre diabetic - HEMATOLOGICAL/ONCOLOGICAL Hx Anemia: Yes Hx Sickle Cell Disease: Yes - INTEGUMENTARY Hx Dermatological Problems: No - MUSCULOSKELETAL/RHEUMATOLOGICAL Hx Arthritis: Yes Hx Falls: No - GASTROINTESTINAL Hx Gastrointestinal Disorders: No - GENITOURINARY/GYNECOLOGICAL Hx Genitourinary Disorders: No - PSYCHIATRIC Hx Anxiety: Yes Hx Depression: Yes Hx Schizophrenia: Yes Hx Substance Use: Yes - SURGICAL HISTORY Hx Surgeries: Yes (L ovarian cyst) Other/Comment: cyst removed from left ovary - ANESTHESIA Hx Anesthesia: Yes Hx Anesthesia Reactions: Yes (states "couldn't breathe") Meds Allergies/Adverse Reactions: Allergies Allergy/AdvReac Type Severity Reaction Status Date / Time ketorolac tromethamine Allergy Mild SWELLING Verified 07/18/17 23:48 [From Toradol] naproxen [From Naprosyn] Allergy Mild URTICARIA Verified 07/18/17 23:48 polyethylene glycol 3350 Allergy Mild RASH Verified 07/18/17 23:48 [From Miralax] shellfish derived Allergy Mild ANAPHYLAXIS Verified 07/18/17 23:48 mushroom Allergy ANAPHYLAXIS Verified 07/18/17 23:48 ibuprofen [From Motrin] AdvReac Mild vomiting Verified 07/18/17 23:48 blood PORK AdvReac DIARRHEA Verified 07/18/17 23:48 nguyen Allergy Severe RASH Uncoded 07/18/17 23:48 Physical Exam - Head Exam Head Exam: NORMAL INSPECTION - Eye Exam Eye Exam: Normal appearance - ENT Exam ENT Exam: Mucous Membranes Moist - Respiratory Exam Respiratory Exam: Clear to Auscultation Bilateral - Cardiovascular Exam Cardiovascular Exam: REGULAR RHYTHM - GI/Abdominal Exam GI & Abdominal Exam: Normal Bowel Sounds - Neurological Exam Neurological exam: Alert, Altered, CN II-XII Intact Additional comments: no extremity weakness no facial palsy - Psychiatric Exam Psychiatric exam: Normal Mood Results - Vital Signs Recent Vital Signs: Last Vital Signs Temp 97.3 F L 12/01/17 19:53 Pulse 84 12/01/17 19:53 Resp 18 12/01/17 19:53 BP 107/73 12/01/17 19:53 Pulse Ox 98 12/01/17 19:53 - Labs Result Diagrams: 11/30/17 22:25 11/30/17 22:25 Labs: Laboratory Results - last 24 hr 11/30/17 11/30/17 11/30/17 22:22 22:25 22:25 WBC 8.2 RBC 4.69 Hgb 13.0 Hct 39.5 MCV 84.2 D MCH 27.6 MCHC 32.8 L RDW 13.5 Plt Count 358 MPV 8.5 Neut % (Auto) 61.5 Lymph % (Auto) 22.1 [place] % (Auto) 8.6 Eos % (Auto) 6.6 H Baso % (Auto) 1.2 Neut # (Auto) 5.0 Lymph # (Auto) 1.8 [place] # (Auto) 0.7 Eos # (Auto) 0.5 Baso # (Auto) 0.1 PT INR APTT Sodium 140 Potassium 3.7 Chloride 101 Carbon Dioxide 32 H Anion Gap 11 BUN 10 Creatinine 0.8 Est GFR ( Amer) > 60 Est GFR (Non-Af Amer) > 60 Random Glucose 121 H Calcium 9.1 Total Bilirubin 0.5 AST 32 ALT 40 Alkaline Phosphatase 92 Troponin I Total Protein 7.6 Albumin 4.0 Globulin 3.6 Albumin/Globulin Ratio 1.1 Urine Opiates Screen Urine Methadone Screen Ur Barbiturates Screen Ur Phencyclidine Scrn Ur Amphetamines Screen U Benzodiazepines Scrn U Oth Cocaine Metabols U Cannabinoids Screen Alcohol, Quantitative < 10 Blood Type AB POSITIVE Antibody Screen Negative BBK History Checked Patient has bt 11/30/17 11/30/17 12/01/17 22:25 22:40 00:00 WBC RBC Hgb Hct MCV MCH MCHC RDW Plt Count MPV Neut % (Auto) Lymph % (Auto) [place] % (Auto) Eos % (Auto) Baso % (Auto) Neut # (Auto) Lymph # (Auto) [place] # (Auto) Eos # (Auto) Baso # (Auto) PT 11.3 INR 1.0 APTT 33.7 Sodium Potassium Chloride Carbon Dioxide Anion Gap BUN Creatinine Est GFR ( Amer) Est GFR (Non-Af Amer) Random Glucose Calcium Total Bilirubin AST ALT Alkaline Phosphatase Troponin I < 0.0120 Total Protein Albumin Globulin Albumin/Globulin Ratio Urine Opiates Screen Positive H Urine Methadone Screen Negative Ur Barbiturates Screen Negative Ur Phencyclidine Scrn Negative Ur Amphetamines Screen Negative U Benzodiazepines Scrn Positive U Oth Cocaine Metabols Positive H U Cannabinoids Screen Negative Alcohol, Quantitative Blood Type Antibody Screen BBK History Checked Assessment & Plan (1) Cocaine abuse Status: Acute (2) Substance abuse Status: Acute (3) Narcotic abuse, continuous Status: Chronic - Assessment and Plan (Free Text) Plan: Hydrate start regular diet ambulate DC plans for AM when shes fully awake
[2017-12-02] MEDS: Dextrose 5%/0.45% NS 1,000 ML IV SCH (09:30)
[2017-12-02 09:48] VITALS: RESP 16
--- NOTE | 2017-12-02 12:10 | CP.PCM.DIS ---
Provider - Provider Date of Admission: 12/01/17 00:38 Attending physician: Costa Jones MD Time Spent in preparation of Discharge (in minutes): 30 Hospital Course - Lab Results Lab Results: Most Recent Lab Values WBC 8.2 K/uL (4.8-10.8) 11/30/17 22:25 RBC 4.69 Mil/uL (3.80-5.20) 11/30/17 22:25 Hgb 13.0 g/dL (12.0-16.0) 11/30/17 22:25 Hct 39.5 % (34.0-47.0) 11/30/17 22:25 MCV 84.2 fl (81.0-99.0) D 11/30/17:25 MCH 27.6 pg (27.0-31.0) 11/30/17 22:25 MCHC 32.8 g/dL (33.0-37.0) L 11/30/17 22: RDW 13.5 % (11.5-14.5) 11/30/17 22:25 Plt Count 358 K/uL (130-400) 11/30/17 22:25 MPV 8.5 fl (7.2-11.7) 11/30/17 22:25 Neut % (Auto) 61.5 % (50.0-75.0) 11/30/17 22:25 Lymph % (Auto) 22.1 % (20.0-40.0) 11/30/17 22:25 [place] % (Auto) 8.6 % (0.0-10.0) 11/30/17 22:25 Eos % (Auto) 6.6 % (0.0-4.0) H 11/30/17 22:25 Baso % (Auto) 1.2 % (0.0-2.0) 11/30/17:25 Neut # (Auto) 5.0 K/uL (1.8-7.0) 11/30/17 22:25 Lymph # (Auto) 1.8 K/uL (1.0-4.3) 11/30/17 22:25 [place] # (Auto) 0.7 K/uL (0.0-0.8) 11/30/17 22:25 Eos # (Auto) 0.5 K/uL (0.0-0.7) 11/30/17 22:25 Baso # (Auto) 0.1 K/uL (0.0-0.2) 11/30/17 22:25 PT 11.3 Seconds (9.8-13.1) 11/30/17 22:25 INR 1.0 11/30/17 22:25 APTT 33.7 Seconds (25.6-37.1) 11/30/17 22:25 Sodium 140 mmol/l (132-148) 11/30/17 22:25 Potassium 3.7 MMOL/L (3.6-5.0) 11/30/17 22:25 Chloride 101 mmol/L (98-107) 11/30/17 22:25 Carbon Dioxide 32 mmol/L (22-30) H 11/30/17 22:25 Anion Gap 11 (10-20) 11/30/17 22:25 BUN 10 mg/dl (7-17) 11/30/17 22:25 Creatinine 0.8 mg/dl (0.7-1.2) 11/30/17 22:25 Est GFR ( Amer) > 60 11/30/17 22:25 Est GFR (Non-Af Amer) > 60 11/30/17 22:25 Random Glucose 121 mg/dL (65-105) H 11/30/17 22:25 Calcium 9.1 mg/dL (8.4-10.2) 11/30/17 22:25 Total Bilirubin 0.5 mg/dl (0.2-1.3) 11/30/17 22:25 AST 32 U/L (14-36) 11/30/17 22:25 ALT 40 U/L (9-52) 11/30/17 22:25 Alkaline Phosphatase 92 U/L (38-126) 11/30/17 22:25 Troponin I < 0.0120 ng/mL (0.00-0.120) 12/01/17 00:00 Total Protein 7.6 G/DL (6.3-8.2) 11/30/17 22:25 Albumin 4.0 g/dL (3.5-5.0) 11/30/17 22:25 Globulin 3.6 gm/dL (2.2-3.9) 11/30/17 22:25 Albumin/Globulin Ratio 1.1 (1.0-2.1) 11/30/17 22:25 Urine Opiates Screen Positive (NEGATIVE) H 11/30/17 22:40 Urine Methadone Screen Negative (NEGATIVE) 11/30/17 22:40 Ur Barbiturates Screen Negative (NEGATIVE) 11/30/17 22:40 Ur Phencyclidine Scrn Negative (NEGATIVE) 11/30/17 22:40 Ur Amphetamines Screen Negative (NEGATIVE) 11/30/17 22:40 U Benzodiazepines Scrn Positive (NEGATIVE) 11/30/17 22:40 U Oth Cocaine Metabols Positive (NEGATIVE) H 11/30/17 22:40 U Cannabinoids Screen Negative (NEGATIVE) 11/30/17 22:40 Alcohol, Quantitative < 10 mg/dl (0-10) 11/30/17 22:25 Blood Type AB POSITIVE 11/30/17 22:22 Antibody Screen Negative 11/30/17 22:22 BBK History Checked Patient has bt 11/30/17 22:22 - Hospital Course Hospital Course: This is a 32 y/o female with hx of drug use was admitted through the ER with the initial impression of extremity weakness, Her Drug screen was positive for both Opiods and Cocaine. She admitted to using a lot of cocaine prior to hospitalization and that she had not slept for many nights, She slept most of the time that she was in the hospital except when she had to use the bath room. She became more awake and was able to finish her meals. There was no weakness on any extremity, She was able to walk without any difficulty. She refused to be seen by any Psychiatrist, Discharge Exam - Head Exam Head Exam: NORMOCEPHALIC (LEFT occiput hematoma with healed superficial laceration <0.5cm) - Eye Exam Eye Exam: Normal appearance - Respiratory Exam Respiratory Exam: NORMAL BREATHING PATTERN - Cardiovascular Exam Cardiovascular Exam: REGULAR RHYTHM - GI/Abdominal Exam GI & Abdominal Exam: Normal Bowel Sounds - Neurological Exam Neurological exam: CN II-XII Intact, Reflexes Normal - Psychiatric Exam Psychiatric exam: Normal Mood - Skin Skin Exam: Normal Color Discharge Plan - Follow Up Plan Condition: FAIR Disposition: HOME/ ROUTINE Additional Instructions: advised follow up with PMD.
[2017-12-02 12:59] VITALS: BP 112/69; PULSE 94; TEMP 99.2
[2017-12-02 15:16] VITALS: O2SAT 96
== END 2017-12-02 14:39 | disposition home or self-care (01) ==
LOC: H.ER 21:38 → H.ERHOLD 12-01 00:38 → H.TEL 12-01 03:21
PROVIDERS: ADMIT Family Medicine; ATTEND Family Medicine
DX: F14.10 Cocaine abuse, uncomplicated (principal); F11.10 Opioid abuse, uncomplicated; Z91.14 Patient's other noncompliance with medication regimen; F41.9 Anxiety disorder, unspecified; M19.90 Unspecified osteoarthritis, unspecified site; J45.909 Unspecified asthma, uncomplicated; I25.10 Atherosclerotic heart disease of native coronary artery without angina pectoris; Z86.73 Personal history of transient ischemic attack (TIA), and cerebral infarction without residual deficits; F32.9 Major depressive disorder, single episode, unspecified; I10 Essential (primary) hypertension; E78.00 Pure hypercholesterolemia, unspecified; E78.5 Hyperlipidemia, unspecified; D57.1 Sickle-cell disease without crisis; D68.59 Other primary thrombophilia; G89.29 Other chronic pain; F17.200 Nicotine dependence, unspecified, uncomplicated
CPT/HCPCS: 70450; 80053; 80320; 80324; 80345; 80346; 80349; 80353; 80358; 80361; 81025; 83992; 84484; 85025; 85610; 85730; 86850; 86900; 93005; 99285; C9113; G0378; J7042; J7120

== ENCOUNTER 2017-12-20 10:53 | Emergency (ER) | payer MEDICAID ==
[2017-12-20 11:06] VITALS: BMI 25.8
[2017-12-20] MEDS ORDERED: Sodium Chloride 0.9% 1,000 ML IV STA (11:53)
--- NOTE | 2017-12-20 12:30 | ED PDOC ---
HPI: Altered Mental Status Time Seen by Provider: 12/20/17 11:20 Chief Complaint (Nursing): Weakness/Neurological Deficit History Per: Patient Additional Complaint(s): Pt. walked in to ED c/o R leg pain that began upon awakening today at "6:30am." States she slept on an uncomfortable chair at [facility] overnight. She then took Dilaudid 12mg and 1 bag of heroin today all at once. Reports that her pain management doctor prescribes her Dilaudid for chronic back pain, trauma, head injury, headache. Past Medical History Vital Signs: Last Vital Signs Temp 98.2 F 12/20/17 11:06 Pulse 84 12/20/17 11:06 Resp 17 12/20/17 11:06 BP 120/70 12/20/17 11:06 Pulse Ox 96 12/20/17 11:06 - Medical History PMH: Anemia, Anxiety, Arthritis, Asthma, Back Problems, CAD, CVA (x 3, Protein C /S deficiency), Depression, Deep Vein Thrombosis, HTN, Hypercholesterolemia, Hyperlipidemia, Migraine, Schizophrenia, Seizures, Sickle Cell Disease, TIA, Chronic Pain Denies: Chronic Kidney Disease - Family History Family History: States: Unknown Family Hx, [place] - Immunization History Hx Tetanus Toxoid Vaccination: Yes Hx Influenza Vaccination: No Hx Pneumococcal Vaccination: Yes - Home Medications Home Medications: Ambulatory Orders Medication Instructions Recorded Apixaban [Eliquis] 5 mg PO BID #0 tab 09/21/15 Atorvastatin [Lipitor] 10 mg PO HS 04/14/16 Gabapentin [Neurontin] 300 mg PO BID 04/14/16 HYDROmorphone [Dilaudid] 4 mg PO Q8 PRN 11/14/16 Topiramate [Topamax] 100 mg PO BID 11/14/16 DiphenhydrAMINE [Benadryl] 50 mg PO BID #12 cap 02/18/17 Guaifen/Dextromethorphan/PE 1 each PO Q6 #20 tablet 06/01/17 [Mucinex Fast-Max Congest-Cough] Fluticasone Nasal [Flonase] 1 actuation NS BID #1 bottle 06/27/17 guaiFENesin/Dextromethorphan 1 tab PO Q6 PRN #20 tab 06/27/17 [Mucinex-DM 600-30 mg] - Allergies Allergies/Adverse Reactions: Allergies Allergy/AdvReac Type Severity Reaction Status Date / Time ketorolac tromethamine Allergy Mild SWELLING Verified 12/21/17 22:20 [From Toradol] naproxen [From Naprosyn] Allergy Mild URTICARIA Verified 12/21/17 22:20 polyethylene glycol 3350 Allergy Mild RASH Verified 12/21/17 22:20 [From Miralax] shellfish derived Allergy Mild ANAPHYLAXIS Verified 12/21/17 22:20 mushroom Allergy ANAPHYLAXIS Verified 12/21/17 22:20 ibuprofen [From Motrin] AdvReac Mild vomiting Verified 12/21/17 22:20 blood PORK AdvReac DIARRHEA Verified 12/21/17 22:20 nguyen Allergy Severe RASH Uncoded 12/21/17 22:20 Review of Systems ROS Statement: Except As Marked, All Systems Reviewed And Found Negative Musculoskeletal: Positive for: Leg Pain Physical Exam - Physical Exam Appears: Positive for: Well, Non-toxic, No Acute Distress Head Exam: Positive for: ATRAUMATIC, NORMAL INSPECTION, NORMOCEPHALIC Skin: Positive for: Normal Color, Warm. Negative for: Rash Eye Exam: Positive for: Normal appearance, EOMI, PERRL ENT: Positive for: Normal ENT Inspection, TM Is/Are (no hemotympanum b/l) Neck: Positive for: Normal, Painless ROM Cardiovascular/Chest: Positive for: Regular Rate, Rhythm Respiratory: Positive for: Normal Breath Sounds. Negative for: Respiratory Distress Pulses-Dorsalis Pedis (L): 2+ Pulses-Dorsalis Pedis (R): 2+ Gastrointestinal/Abdominal: Positive for: Normal Exam, Soft. Negative for: Tenderness Back: Positive for: Normal Inspection Extremity: Positive for: Normal ROM (b/l lower extremities actively), Other (b/ l lower extremities are warm and there are no skin changes). Negative for: Pedal Edema (b/l), Calf Tenderness (b/l), Capillary Refill (< 2 seconds) Neurologic/Psych: Positive for: Alert, Oriented (x3) - Laboratory Results Result Diagrams: 12/20/17 12:26 12/20/17 12:15 Urine POC: Negative - ECG O2 Sat by Pulse Oximetry: 96 - Progress ED Course And Treament: Labs, EKG, IV NS bolus ordered. Pt. placed on end tital CO2 [address] Arauz and PA. Pt. arousable to verbal stimuli but is still somnolent. Offered narcan but refused. Pending US. 165 US: No evidence of deep venous thrombosis. 1740 Pt. still somnolent but arousable to verbal stimuli. Dr. Arauz recommends CT head w/o contrast. CT head w/o contrast ordered. Disposition - Clinical Impression Clinical Impression: Narcotic abuse, continuous, Cocaine abuse - Patient ED Disposition Is Patient to be Admitted: Transfer of Care (Signed out to Rafi BLAND pending sobriety.) - Disposition Referrals: [facility] at [facility] [Outside] Disposition: Transfer of Care Disposition Time: 20:00 Condition: STABLE Instructions: Drug Abuse and Drug Addiction (DC), Drug Abuse Treatment Forms: [facility] (Ugandan)
[2017-12-20 12:38] LABS: BASO % 0.6 % (0.0-2.0); EOS # 0.2 K/uL (0.0-0.7); HEMOGLOBIN 12.7 g/dL (12.0-16.0); LYMPH % 24.9 % (20.0-40.0); MEAN CELL VOLUME 82.4 fl (81.0-99.0); MEAN CORPUSCULAR HEMOGLOBIN 27.3 pg (27.0-31.0); MEAN CORPUSCULAR HGB CONC 33.1 g/dL (33.0-37.0); MEAN PLATELET VOLUME 8.5 fl (7.2-11.7); MONO # 0.5 K/uL (0.0-0.8); NEUT # 2.3 K/uL (1.8-7.0); NEUT % 56.5 % (50.0-75.0); NRBC % 0.1 % (0.0-0.0); RBC 4.65 Mil/uL (3.80-5.20); RED CELL DISTRIBUTION WIDTH 13.3 % (11.5-14.5); WHITE BLOOD COUNT 4.2 K/uL (4.8-10.8)
[2017-12-20 12:43] LABS: INR 0.9; PROTHROMBIN TIME 10.4 Seconds (9.8-13.1)
[2017-12-20 12:46] LABS: PARTIAL THROMBOPLASTIN TIME 34.4 Seconds (25.6-37.1)
[2017-12-20 12:48] LABS: ALB/GLOB RATIO 1.1 (1.0-2.1); ALBUMIN 3.7 g/dL (3.5-5.0); ALT/SGPT 25 U/L (9-52); AST/SGOT 48 U/L (14-36); BLOOD UREA NITROGEN 8 mg/dl (7-17); CALCIUM 8.7 mg/dL (8.4-10.2); GFR NON-AFRICAN AMERICAN > 60
[2017-12-20 12:51] LABS: ACETAMINOPHEN < 10.0 ug/ml (10.0-30.0); SALICYLATE < 1.0 mg/dl
--- NOTE | 2017-12-20 16:10 | RAD ---
HISTORY: AMS COMPARISON: Chest x-ray performed 06/27/17 TECHNIQUE: Chest, one view. FINDINGS: Examination limited by habitus. LUNGS: No focal consolidation. Please note that chest x-ray has limited sensitivity for the detection of pulmonary masses. PLEURA: No significant pleural effusion identified. No definite pneumothorax . CARDIOVASCULAR: The cardiomediastinal silhouette appears within normal limits of size. OSSEOUS STRUCTURES: No acute osseous abnormality identified. VISUALIZED UPPER ABDOMEN: Unremarkable. OTHER FINDINGS: None. IMPRESSION: No focal consolidation, significant pleural effusion, or definite pneumothorax identified.
--- NOTE | 2017-12-20 16:59 | US ---
Date of service: 12/20/2017 PROCEDURE: Bilateral lower extremity venous duplex Doppler. HISTORY: leg pain COMPARISON: None available. TECHNIQUE: Bilateral common femoral, superficial femoral, popliteal and posterior tibial veins were evaluated. Flow was assessed with color Doppler, compressibility, assessment of phasic flow and augmentation response. FINDINGS: COMMON FEMORAL VEIN: Right CFV: Unremarkable. Left CFV: Unremarkable. SUPERFICIAL FEMORAL VEIN: Right SFV: Unremarkable. Left SFV: Unremarkable. POPLITEAL VEIN: Right Popliteal: Unremarkable. Left Popliteal: Unremarkable. POSTERIOR TIBIAL VEIN: Right PTV: Unremarkable. Left PTV: Unremarkable. OTHER FINDINGS: None. IMPRESSION: No evidence of deep venous thrombosis.
[2017-12-20 18:22] LABS: SQUAMOUS EPITHIAL 13 /hpf (0-5); URINE BACTERIA RARE (<OCC); URINE BILIRUBIN NEGATIVE (NEGATIVE); URINE BLOOD NEGATIVE (NEGATIVE); URINE CLARITY CLOUDY (Clear); URINE COLOR YELLOW (YELLOW); URINE GLUCOSE (UA) NEG (Normal); URINE LEUKOCYTE ESTERASE NEG Leu/uL (Negative); URINE PROTEIN NEGATIVE (NEGATIVE); URINE UROBILINOGEN 0.2-1.0 mg/dL (0.2-1.0)
--- NOTE | 2017-12-20 18:35 | CT ---
Date of service: 12/20/2017 PROCEDURE: CT HEAD WITHOUT CONTRAST. HISTORY: AMS COMPARISON: Noncontrast head CT performed 11/30/17 TECHNIQUE: Axial computed tomography images were obtained through the head/brain without intravenous contrast. Radiation dose: Total exam DLP = 779.13 mGy-cm. This CT exam was performed using one or more of the following dose reduction techniques: Automated exposure control, adjustment of the mA and/or kV according to patient size, and/or use of iterative reconstruction technique. FINDINGS: HEMORRHAGE: No intracranial hemorrhage. BRAIN: No mass effect or edema. The fermin-white matter differentiation appears intact. Please note that MRI with diffusion imaging is more sensitive in the detection of acute ischemic event. VENTRICLES: No hydrocephalus. CALVARIUM: Unremarkable. PARANASAL SINUSES: Unremarkable as visualized. No significant inflammatory changes. MASTOID AIR CELLS: Unremarkable as visualized. No inflammatory changes. OTHER FINDINGS: None. IMPRESSION: No acute intracranial pathology identified.
[2017-12-20 18:45] LABS: BARBITURATES, UR NEGATIVE (NEGATIVE); BENZODIAZEPINES, UR NEGATIVE (NEGATIVE); OPIATES, UR POSITIVE (NEGATIVE); PHENCYCLIDINE, UR NEGATIVE (NEGATIVE)
--- NOTE | 2017-12-20 20:40 | ED PDOC ---
- Laboratory Results Result Diagrams: 12/20/17 12:26 12/20/17 12:15 Urine POC: Negative - ECG O2 Sat by Pulse Oximetry: 100 Pulse Ox Interpretation: Normal Medical Decision Making Medical Decision Making: Case was signed out pending sobriety and final disposition Patient is still very lethargic, admits to using heroin and cocaine earlier today. Patient given 0.4 mg of Narcan. He became more alert after Narcan dose. Patient states she is feeling withdrawal symptoms, was given 4 mg ODT Zofran and 0.1 mg tablet of clonidine. Patient requested list of detox facilities which was provided to her. She was offered crisis evaluation but she declined. Patient is stable for discharge. Repeat vital sign are stable. Disposition - Clinical Impression Clinical Impression: Narcotic abuse, continuous, Cocaine abuse - POA Present On Arrival: None - Disposition Referrals: [facility] at [facility] [Outside] Disposition: Routine/Home Disposition Time: 21:47 Condition: STABLE Instructions: Drug Abuse and Drug Addiction (DC), Drug Abuse Treatment Forms: [employer] (Panamanian)
[2017-12-20 21:09] VITALS: BP 104/57; RESP 17; TEMP 98.3
[2017-12-20] MEDS ORDERED: Naloxone 0.4 mg/ml Inj (Adult) IM STA (21:14)
[2017-12-20 22:05] VITALS: PULSE 72
--- NOTE | 2017-12-20 22:34 | CARD ---
APPROVED REPORT Date of service: 12/20/2017 EKG Measurement Heart [id number] <Conclusion> Normal sinus rhythm Prolonged QT Abnormal ECG
[2017-12-22 20:19] VITALS: O2SAT 96
== END 2017-12-20 22:00 | disposition home or self-care (01) ==
LOC: H.ER 10:53
DX: F14.10 Cocaine abuse, uncomplicated (principal); F11.10 Opioid abuse, uncomplicated; E78.00 Pure hypercholesterolemia, unspecified; F20.9 Schizophrenia, unspecified; G89.29 Other chronic pain; I10 Essential (primary) hypertension; I25.10 Atherosclerotic heart disease of native coronary artery without angina pectoris; Z79.01 Long term (current) use of anticoagulants; Z86.718 Personal history of other venous thrombosis and embolism; Z88.6 Allergy status to analgesic agent; S09.90XA Unspecified injury of head, initial encounter; Y92.89 Other specified places as the place of occurrence of the external cause
CPT/HCPCS: 70450; 71045; 80053; 80320; 80324; 80329; 80345; 80346; 80349; 80353; 80358; 80361; 81003; 83992; 84703; 85025; 85610; 85730; 93005; 93970; 94770; 96360; 96372; 99285; J2310; J7030

== ENCOUNTER 2018-03-14 02:59 | Emergency (ER) | payer MEDICAID ==
[2018-03-14 03:00] VITALS: BMI 27.4
--- NOTE | 2018-03-14 03:45 | ED PDOC ---
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 was having a seizure. Officer Richi (at bedside) states pt. was foaming at the mouth and shaking and immediately afterwards pt. was coherent and speaking with EMS workers. Pt. states she sustained a laceration to the R hand today but is uncertain as to how. Pt. states she has been compliant with her Eliquis, Gabapentin, and Topmax. Denies oral injury, incontinence, chest pain, SOB, SI/HI, hallucinations. Past Medical History Reviewed: Historical Data, Nursing Documentation, Vital Signs Vital Signs: Last Vital Signs Temp 98.8 F 03/14/18 03:06 Pulse 98 H 03/14/18 03:06 Resp 16 03/14/18 03:06 BP 138/64 03/14/18 03:06 Pulse Ox 100 03/14/18 03:06 - Medical History PMH: Anemia, Anxiety, Arthritis, Asthma, Back Problems, CAD, CVA (x 3, Protein C/S deficiency), Depression, Deep Vein Thrombosis, HTN, Hypercholesterolemia, Hyperlipidemia, Migraine, Schizophrenia, Seizures, Sickle Cell Disease, TIA, Chronic Pain Denies: Diabetes, Hepatitis, HIV, Chronic Kidney Disease, Sexually Transmitted Disease - Family History Family History: States: [place] - Immunization History Hx Tetanus Toxoid Vaccination: Yes Hx Influenza Vaccination: Yes Hx Pneumococcal Vaccination: Yes - Home Medications Home Medications: Ambulatory Orders Medication Instructions Recorded RX: Apixaban [Eliquis] 5 mg PO BID #0 tab 09/21/15 RX: Atorvastatin [Lipitor] 10 mg PO HS 04/14/16 RX: Gabapentin [Neurontin] 300 mg PO BID 04/14/16 RX: Topiramate [Topamax] 100 mg PO BID 11/14/16 Naloxone HCl [Narcan] 4 mg NS PRN PRN #2 spray 03/14/18 - Allergies Allergies/Adverse Reactions: Allergies Allergy/AdvReac Type Severity Reaction Status Date / Time ketorolac tromethamine Allergy Mild SWELLING Verified 12/21/17 22:20 [From Toradol] naproxen [From Naprosyn] Allergy Mild URTICARIA Verified 12/21/17 22:20 polyethylene glycol 3350 Allergy Mild RASH Verified 12/21/17 22:20 [From Miralax] shellfish derived Allergy Mild ANAPHYLAXIS Verified 12/21/17 22:20 mushroom Allergy ANAPHYLAXIS Verified 12/21/17 22:20 ibuprofen [From Motrin] AdvReac Mild vomiting Verified 12/21/17 22:20 blood PORK AdvReac DIARRHEA Verified 12/21/17 22:20 nguyen Allergy Severe RASH Uncoded 12/21/17 22:20 Review of Systems ROS Statement: Except As Marked, All Systems Reviewed And Found Negative Physical Exam - Reviewed Nursing Documentation Reviewed: Yes Vital Signs Reviewed: Yes - Physical Exam Appears: Positive for: Well, Non-toxic, No Acute Distress Head Exam: Positive for: ATRAUMATIC, NORMAL INSPECTION, NORMOCEPHALIC Skin: Positive for: Normal Color, Warm, DRY Eye Exam: Positive for: EOMI, Normal appearance, PERRL ENT: Positive for: Normal ENT Inspection, Other (no oral trauma noted) Neck: Positive for: Normal, Painless ROM Cardiovascular/Chest: Positive for: Regular Rate, Rhythm, Chest Non Tender Respiratory: Positive for: CNT, Normal Breath Sounds Gastrointestinal/Abdominal: Positive for: Normal Exam, Bowel Sounds, Soft. Negative for: Tenderness Back: Positive for: Normal Inspection Extremity: Positive for: Normal ROM, Other (R hand on palmar surface of 2nd MCP with 1cm V shaped very superficial laceration without active bleeding but with dry blood and without swelling or surrounding erythema ) Neurologic/Psych: Positive for: Alert, Oriented, Mood/Affect, Other (somnolent but arousable). Negative for: Aphasia, Facial Droop - Laboratory Results Result Diagrams: 03/14/18 03:45 03/14/18 03:45 - ECG O2 Sat by Pulse Oximetry: 100 - Progress ED Course And Treament: Labs, CT head w/o contrast ordered. Hand x-ray ordered. Case d/w Dr. Acosta who agrees with plan and care. Disposition - Clinical Impression Clinical Impression: Hand injury, Heroin use - Patient ED Disposition Is Patient to be Admitted: Transfer of Care (Dr. Acosta continued care at the end of my shift.) - Disposition Disposition Time: 05:00 Condition: STABLE Additional Instructions: Do not consume drugs or alcohol. Seek professional help through rehabilitation or your primary doctor. Use Narcan kit in case of heroine overdose. You are now medically and psychiatrically cleared for discharge to police custody. Prescriptions: Naloxone HCl [Narcan] 4 mg NS PRN PRN #2 spray PRN Reason: Opiate Reversal Instructions: General (DC) Forms: [facility] (Kinyarwanda) Print Language: ROMANIAN
[2018-03-14 04:08] LABS: BASO # 0.1 K/uL (0.0-0.2); BASO % 0.6 % (0.0-2.0); EOS # 0.4 K/uL (0.0-0.7); EOS % 3.4 % (0.0-4.0); HEMOGLOBIN 12.9 g/dL (12.0-16.0); LYMPH # 1.8 K/uL (1.0-4.3); LYMPH % 15.9 % (20.0-40.0); MEAN CELL VOLUME 82.1 fl (81.0-99.0); MEAN CORPUSCULAR HEMOGLOBIN 26.6 pg (27.0-31.0); MEAN CORPUSCULAR HGB CONC 32.5 g/dL (33.0-37.0); MEAN PLATELET VOLUME 8.9 fl (7.2-11.7); MONO % 9.3 % (0.0-10.0); NEUT # 7.8 K/uL (1.8-7.0); NEUT % 70.8 % (50.0-75.0); NRBC % 0.1 % (0.0-0.0); RBC 4.86 Mil/uL (3.80-5.20); RED CELL DISTRIBUTION WIDTH 14.6 % (11.5-14.5)
[2018-03-14 04:14] LABS: ALB/GLOB RATIO 1.2 (1.0-2.1); ALBUMIN 4.2 g/dL (3.5-5.0); ALT/SGPT 24 U/L (9-52); AST/SGOT 31 U/L (14-36); BLOOD UREA NITROGEN 13 mg/dl (7-17); CALCIUM 8.6 mg/dL (8.4-10.2); GFR NON-AFRICAN AMERICAN > 60
[2018-03-14] MEDS ORDERED: Tdap Vaccine 0.5 ml Vial (10-64 yrs) IM ONE ×2 (06:56→07:35)
[2018-03-14 07:38] LABS: SQUAMOUS EPITHIAL < 1 /hpf (0-5); URINE BILIRUBIN NEGATIVE (NEGATIVE); URINE BLOOD NEGATIVE (NEGATIVE); URINE CLARITY CLEAR (Clear); URINE COLOR YELLOW (YELLOW); URINE GLUCOSE (UA) NEG (Normal); URINE LEUKOCYTE ESTERASE NEG Leu/uL (Negative); URINE PROTEIN NEGATIVE (NEGATIVE); URINE UROBILINOGEN 0.2-1.0 mg/dL (0.2-1.0)
--- NOTE | 2018-03-14 07:38 | ED PDOC ---
- Laboratory Results Result Diagrams: 03/14/18 03:45 03/14/18 03:45 - ECG O2 Sat by Pulse Oximetry: 99 (RA) Pulse Ox Interpretation: Normal Medical Decision Making Medical Decision Makin:00 Care endorsed to this provider by Dr Acosta Patient presents in police custody with drugs on board. She is medically cleared at this time for further evaluation. Pending psychiatric evaluation and sobriety Will reevaluate patient 1031 --Patient was medically cleared by madhav CHISHOLM. Now, psychiatrically cleared by Dr. Zavala and crisis team. Stable for discharged into police custody. Scribe Attestation: Documented by Deidre Welsh acting as a scribe for Alyssa Arauz MD Provider Scribe Attestation: All medical record entries made by the Scribe were at my direction and personally dictated by me. I have reviewed the chart and agree that the record accurately reflects my personal performance of the history, physical exam, medical decision making, and the department course for this patient. I have also personally directed, reviewed, and agree with the discharge instructions and disposition. Disposition - Clinical Impression Clinical Impression: Hand injury, Heroin use - POA Present On Arrival: None - Disposition Disposition: Discharged/Transfer to Law Enforcement Disposition Time: 10:31 Condition: STABLE Instructions: General (DC) Forms: [employer] (South Korean)
[2018-03-14 07:47] LABS: BARBITURATES, UR NEGATIVE (NEGATIVE); BENZODIAZEPINES, UR POSITIVE (NEGATIVE); OPIATES, UR POSITIVE (NEGATIVE); PHENCYCLIDINE, UR NEGATIVE (NEGATIVE)
--- NOTE | 2018-03-14 09:50 | CT ---
Date of service: 03/14/2018 PROCEDURE: CT HEAD WITHOUT CONTRAST. HISTORY: possible seizure COMPARISON: 12/20/2017 TECHNIQUE: Axial computed tomography images were obtained through the head/brain without intravenous contrast. Radiation dose: Total exam DLP = 762.41 mGy-cm. This CT exam was performed using one or more of the following dose reduction techniques: Automated exposure control, adjustment of the mA and/or kV according to patient size, and/or use of iterative reconstruction technique. FINDINGS: HEMORRHAGE: No intracranial hemorrhage. BRAIN: No mass effect or edema. No atrophy or chronic microvascular ischemic changes. VENTRICLES: Unremarkable. No hydrocephalus. CALVARIUM: Unremarkable. PARANASAL SINUSES: Unremarkable as visualized. No significant inflammatory changes. MASTOID AIR CELLS: Unremarkable as visualized. No inflammatory changes. OTHER FINDINGS: None. IMPRESSION: Normal CT of the Head. No intracranial mass, hemorrhage or evidence of acute infarct. No interval change. The preliminary findings for this examination were reported by [facility] at 4:58 a.m. on 03/14/2018. There is concurrence of this report with the preliminary findings.
[2018-03-14 10:43] VITALS: BP 126/77; PULSE 75; RESP 16; TEMP 98.2
--- NOTE | 2018-03-14 13:12 | RAD ---
PROCEDURE: Right Hand Radiographs. HISTORY: trauma COMPARISON: None. FINDINGS: BONES: Normal. No fracture. JOINTS: Normal. No osteoarthritic changes. SOFT TISSUES: Normal. OTHER FINDINGS: None. IMPRESSION: Normal right hand radiographs.
[2018-03-14 23:37] VITALS: O2SAT 100
== END 2018-03-14 11:02 ==
LOC: H.ER 02:59
DX: G40.909 Epilepsy, unspecified, not intractable, without status epilepticus (principal); S61.411A Laceration without foreign body of right hand, initial encounter; W19.XXXA Unspecified fall, initial encounter; Y92.89 Other specified places as the place of occurrence of the external cause; F11.10 Opioid abuse, uncomplicated; E78.00 Pure hypercholesterolemia, unspecified; F20.9 Schizophrenia, unspecified; F32.9 Major depressive disorder, single episode, unspecified; F41.9 Anxiety disorder, unspecified; G89.29 Other chronic pain; I10 Essential (primary) hypertension; I25.10 Atherosclerotic heart disease of native coronary artery without angina pectoris; J45.909 Unspecified asthma, uncomplicated; Z79.01 Long term (current) use of anticoagulants; Z86.718 Personal history of other venous thrombosis and embolism; Z86.73 Personal history of transient ischemic attack (TIA), and cerebral infarction without residual deficits; Z88.6 Allergy status to analgesic agent

== ENCOUNTER 2018-07-07 20:41 | Inpatient (IN) | payer MEDICAID ==
[2018-07-07 20:41] VITALS: BMI 24.7
[2018-07-07 20:46] VITALS: O2SAT 100
--- NOTE | 2018-07-07 20:49 | ED PDOC ---
Psych Transfer Clearance - Clearance Statement Clearance Statement: Reviewed vital signs, lab results and transfer papers. Patient clinically stable for psychiatric admission.
[2018-07-07] MEDS ORDERED: Magnesium Hydroxide Susp 30 ml UD PO PRN (21:24)
[2018-07-07] MEDS ORDERED: Alum-Mag Hydrox-Simethicone Susp (30 mL) PO PRN (21:24)
[2018-07-07] MEDS ORDERED: DiphenhydrAMINE 50 mg/ml Inj IM PRN (21:24)
--- NOTE | 2018-07-07 22:28 | PCM.BM ---
<Anastacia Santos - Last Filed: 07/07/18 22:26> Treatment Plan Problems - Problems identified on initial assessmt Knowledge Deficit: Substance use Date Initiated: 07/07/18 Time Initiated: 22:26 Assessment reference: NA Status: Active Hopelessness/Helplessness Date Initiated: 07/07/18 Time Initiated: 22:27 Assessment reference: NA Feelings of Worthlessness Date Initiated: 07/07/18 Time Initiated: 22:27 Assessment reference: NA Status: Active Treatment assets and liabiliti Patient Assests: cooperative, ADL independent, negotiates basic needs, cognitively intact Patient Liabilities: financial problems, substance abuse, medical problems, other (unemployed) - Milieu Protocol Maintain good personal hygiene: daily Encourage regular showers, other Remind patient to perform daily oral care (prn), other Assist patient to perform ADL's (prn) Conduct patient checks and document Observation sheet: Q15 minutes Maintain personal safety: every shift Educate patient to report safety concerns to staff, every shift Monitor environment for contraband/sharps Medication safety: Monitor for expected outcome, potential side effects: every shift, Assess barriers to learning: every shift, Assess readiness for medication education: every shift <Nikko Chiang - Last Filed: 07/11/18 11:44> Family Contact Family involvement: Famliy/SO not involved Family contact: Patient declines to allow family contact at present Family contact name: Pt refused. Family contacted how many times per week?: 2 - Goals for Treatment Patient goals for treatment: Pt is ambivalent and could not provide goals for treatment. Pt appears fairly apathetic regarding her continued sobriety and lacks insight into the severity of her substance use. Pt is refusing to return to inpatient SA treatment. Discharge/Continuing Care - Education Needs Education Needs: Patient Medication, Patient Diagnosis/Disease Process, Patient Coping Skills, Patient Placement options, Patient Community resources, Patient Aftercare Safety Plan - Discharge Discharge Criteria: Tolerates medication w/o severe side effects, Free of Suicidal thoughts, Free of agitation, Normal sleep pattern, Ability to care for self, No longer exhibiting s/s of withdrawal Discharge to:: Home, With Family, Fdc - Treatment Team Participation Patient/Family/SO Statement: 07/11/18 11:46 Pt seen in treatment team on 07/10/18. Pt reported she feels "tired" and "can't eat." Pt appeared duane with a sweaty, red face. Pt's body language was internal and small and her speech was soft and weak. Pt made poor eye contact with downturned eyes. Pt reported to overall body pain. Dr. Cruz explained that the Neurontin should help with this. Staff recommended pt have a pain management consult upon discharge to better manage her pain medications. Pt reported that Jarett Davalos and the 21 month program would make her want to kill herself if she returned. Pt appeared ambivalent regarding aftercare, but eventually decided that she wanted to participate in an outpatient program. Pt denied current SI/HI and AVT hallucinations. Pt is oriented X4. Discussed with Family/SO: No Was Patient/Family/SO present at Treatment Team Meeting: Yes <Misael Cruz - Last Filed: 07/11/18 14:59> - Diagnosis (1) Bipolar I disorder Status: Acute Interventions: pharmacotherapy 07/11/18 14:59 (2) Polysubstance dependence including opioid drug with daily use Status: Acute Interventions: motivational therapy 07/11/18 14:03
--- NOTE | 2018-07-08 08:40 | CARD ---
APPROVED REPORT Date of service: 07/08/2018 EKG Measurement Heart [id number] <Conclusion> Normal sinus rhythm with sinus arrhythmia Normal ECG
[2018-07-08 08:58] LABS: ALB/GLOB RATIO 1.1 (1.0-2.1); ALBUMIN 4.1 g/dL (3.5-5.0); ALT/SGPT 19 U/L (9-52); AST/SGOT 18 U/L (14-36); BLOOD UREA NITROGEN 15 mg/dl (7-17); CALCIUM 9.1 mg/dL (8.4-10.2); GFR NON-AFRICAN AMERICAN > 60; HDL CHOLESTEROL 51 MG/DL (30-70)
[2018-07-08 09:09] LABS: LDL CHOLESTEROL 86 mg/dL (0-129)
[2018-07-08 09:31] LABS: BASO # 0.1 K/uL (0.0-0.2); BASO % 2.1 % (0.0-2.0); EOS # 0.2 K/uL (0.0-0.7); EOS % 3.2 % (0.0-4.0); HEMOGLOBIN 13.6 g/dL (12.0-16.0); LYMPH # 2.1 K/uL (1.0-4.3); LYMPH % 30.8 % (20.0-40.0); MEAN CELL VOLUME 79.2 fl (81.0-99.0); MEAN CORPUSCULAR HGB CONC 32.9 g/dL (33.0-37.0); MEAN PLATELET VOLUME 7.9 fl (7.2-11.7); MONO # 0.6 K/uL (0.0-0.8); NEUT # 3.7 K/uL (1.8-7.0); NEUT % 54.9 % (50.0-75.0); NRBC % 0.1 % (0.0-0.0); RBC 5.21 Mil/uL (3.80-5.20); RED CELL DISTRIBUTION WIDTH 14.8 % (11.5-14.5); WHITE BLOOD COUNT 6.7 K/uL (4.8-10.8)
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
--- NOTE | 2018-07-08 16:30 | CP.PCM.CON ---
History of Present Illness - History of Present Illness History of Present Illness: HPI: 32 y/o woman w/ pmh of protein C/S deficiency, bipolar disorder, and polysubstance use is admitted to psychiatry for suicidal ideation while in detox program. Patient reported that she could not be near knives. Reports increased depression. Patient is on Eliquis for protein C/S deficiency. Patient currently denies headaches, chest pain, abdominal pin, nausea, vomiting, diarrhea, dysuria, or fever. Review of Systems - Review of Systems All systems: reviewed and no additional remarkable complaints except - Constitutional Constitutional: absent: Headache - EENT Eyes: absent: Change in Vision - Cardiovascular Cardiovascular: absent: Chest Pain - Respiratory Respiratory: absent: Dyspnea - Gastrointestinal Gastrointestinal: absent: Abdominal Pain, Diarrhea, Nausea, Vomiting - Genitourinary Genitourinary: absent: Dysuria - Integumentary Integumentary: absent: Rash - Neurological Neurological: absent: Dizziness, Headaches Past Patient History - Infectious Disease Hx of Infectious Diseases: None - Tetanus Immunizations Tetanus Immunization: Unknown - Past Medical History & Family History Past Medical History?: Yes - Past Social History Smoking Status: Heavy Smoker > 10 Cigarettes Daily - CARDIAC Hx Cardiac Disorders: No Hx Hypercholesterolemia: Yes Hx Hypertension: Yes - PULMONARY Hx Respiratory Disorders: No - NEUROLOGICAL Hx Migraine: Yes Hx Seizures: Yes Hx Transient Ischemic Attacks (TIA): Yes - HEENT Hx HEENT Problems: No Other/Comment: wears glasses - RENAL Hx Chronic Kidney Disease: No - ENDOCRINE/METABOLIC Hx Endocrine Disorders: No - HEMATOLOGICAL/ONCOLOGICAL Hx Blood Disorders: No Hx Human Immunodeficiency Virus (HIV): No Hx Sickle Cell Disease: Yes - INTEGUMENTARY Hx Dermatological Problems: No - MUSCULOSKELETAL/RHEUMATOLOGICAL Hx Arthritis: Yes - GASTROINTESTINAL Hx Gastrointestinal Disorders: Yes Hx Gastroesophageal Reflux: Yes - GENITOURINARY/GYNECOLOGICAL Hx Genitourinary Disorders: No Hx Sexually Transmitted Disorders: No - PSYCHIATRIC Hx Bipolar Disorder: Yes Hx Substance Use: Yes - SURGICAL HISTORY Hx Surgeries: Yes (L ovarian cyst) Other/Comment: cyst removed from left ovary. I & D L Leg abscess - ANESTHESIA Hx Anesthesia: Yes Hx Anesthesia Reactions: Yes (states "couldn't breathe") Meds Allergies/Adverse Reactions: Allergies Allergy/AdvReac Type Severity Reaction Status Date / Time ketorolac tromethamine Allergy Mild SWELLING Verified 05/27/18 00:00 [From Toradol] naproxen [From Naprosyn] Allergy Mild URTICARIA Verified 05/27/18 00:00 polyethylene glycol 3350 Allergy Mild RASH Verified 05/27/18 00:00 [From Miralax] shellfish derived Allergy Mild ANAPHYLAXIS Verified 05/27/18 00:00 mushroom Allergy ANAPHYLAXIS Verified 05/27/18 00:00 ibuprofen [From Motrin] AdvReac Mild vomiting Verified 05/27/18 00:00 blood PORK AdvReac DIARRHEA Verified 05/27/18 00:00 nguyen Allergy Severe RASH Uncoded 05/27/18 00:00 - Medications Medications: Current Medications Acetaminophen (Tylenol 325mg Tab) 650 mg PO Q4 PRN PRN Reason: pain 4-7 Al Hydrox/Mg Hydrox/Simethicone (Maalox Plus 30 Ml) 30 ml PO Q4 PRN PRN Reason: Dyspepsia Clonidine HCl (Catapres) 0.1 mg PO TID PRN PRN Reason: Opiate reversal Last Admin: 07/08/18 15:23 Dose: 0.1 mg Diphenhydramine HCl (Benadryl) 50 mg IM Q6 PRN PRN Reason: Extrapyramidal S/S Unable PO Diphenhydramine HCl (Benadryl) 50 mg PO Q6 PRN PRN Reason: Extrapyramidal Symptoms Diphenhydramine HCl (Benadryl) 50 mg PO HS PRN PRN Reason: Sleep Divalproex Sodium (Depakote Dr(*Bid*)) 500 mg PO DAILY JODIE Divalproex Sodium (Depakote Dr(*Bid*)) 1,000 mg PO HS JODIE Escitalopram Oxalate (Lexapro) 5 mg PO HS JODIE Gabapentin (Neurontin) 300 mg PO TID JODIE Last Admin: 07/08/18 15:24 Dose: 300 mg Haloperidol (Haldol) 5 mg PO Q4 PRN PRN Reason: Agitation Haloperidol Lactate (Haldol) 5 mg IM Q4 PRN PRN Reason: Agitation, Unable to Take PO Hydroxyzine Pamoate (Vistaril) 50 mg PO Q8 PRN PRN Reason: Anxiety Lorazepam (Ativan) 2 mg IM Q6 PRN PRN Reason: Anxiety/Agitation,Unable PO Lorazepam (Ativan) 1 mg PO Q8 PRN PRN Reason: Anxiety/Agitation Last Admin: 07/07/18 22:43 Dose: 1 mg Magnesium Hydroxide (Milk Of Magnesia) 30 ml PO HS PRN PRN Reason: Constipation Physical Exam - Constitutional Appears: Non-toxic, No Acute Distress - Head Exam Head Exam: ATRAUMATIC, NORMAL INSPECTION, NORMOCEPHALIC - Eye Exam Eye Exam: EOMI, Normal appearance, PERRL - ENT Exam ENT Exam: Mucous Membranes Moist - Neck Exam Neck exam: Positive for: Full Rom. Negative for: Tenderness - Respiratory Exam Respiratory Exam: Clear to Auscultation Bilateral, NORMAL BREATHING PATTERN. absent: Decreased Breath Sounds, Rales, Rhonchi, Wheezes, Respiratory Distress - Cardiovascular Exam Cardiovascular Exam: REGULAR RHYTHM, RRR, +S1, +S2. absent: Tachycardia - Extremities Exam Extremities exam: Positive for: normal inspection. Negative for: calf tenderness, pedal edema, tenderness - Neurological Exam Neurological exam: Alert, Normal Gait, Oriented x3 - Psychiatric Exam Psychiatric exam: Anxious - Skin Skin Exam: Dry, Intact, Normal Color, Warm Results - Vital Signs Recent Vital Signs: Last Vital Signs Temp 98.1 F 07/07/18 21:10 Pulse 83 07/08/18 15:23 Resp 18 07/07/18 21:22 BP 123/76 07/08/18 15:23 Pulse Ox 100 07/07/18 20:43 - Labs Result Diagrams: 07/08/18 08:15 07/08/18 08:15 Labs: Laboratory Results - last 24 hr 07/08/18 07/08/18 07/08/18 08:15 08:15 08:15 WBC 6.7 RBC 5.21 H Hgb 13.6 Hct 41.3 MCV 79.2 L D MCH 26.0 L MCHC 32.9 L RDW 14.8 H Plt Count 319 MPV 7.9 Neut % (Auto) 54.9 Lymph % (Auto) 30.8 [place] % (Auto) 9.0 Eos % (Auto) 3.2 Baso % (Auto) 2.1 H Neut # (Auto) 3.7 Lymph # (Auto) 2.1 [place] # (Auto) 0.6 Eos # (Auto) 0.2 Baso # (Auto) 0.1 Sodium 141 Potassium 4.2 Chloride 105 Carbon Dioxide 28 Anion Gap 12 BUN 15 Creatinine 0.9 Est GFR ( Amer) > 60 Est GFR (Non-Af Amer) > 60 Random Glucose 85 Hemoglobin A1c 5.1 Calcium 9.1 Total Bilirubin 0.3 AST 18 ALT 19 Alkaline Phosphatase 71 Total Protein 7.6 Albumin 4.1 Globulin 3.5 Albumin/Globulin Ratio 1.1 Triglycerides 100 D Cholesterol 166 LDL Cholesterol Direct 86 HDL Cholesterol 51 Thyroxine (T4) 6.83 TSH 3rd Generation 0.88 Assessment & Plan - Assessment and Plan (Free Text) Assessment: 32 y/o woman w/ pmh of protein C/S deficiency, bipolar disorder, and polysubstance use is admitted to psychiatry for suicidal ideation while in detox program Plan: Bipolar Disorder - management as per psychiatry team - monitor for acute changes Polysubstance abuse - management as per psychiatry team - monitor for withdrawal Seizure - 500 mg PO daily - 1000 mg PO HS - no need to be on barbituates Protein C/S deficiency - on eliquis 5 mg PO BID - verified w/ [facility] in [place], [place]; prescription last picked up 06/19/2018 Prophylactic measures - on Eliquis 5 mg PO BID
[2018-07-08] MEDS: Divalproex 500 mg DR(BID formulation) PO SCH ×2 (18:36→21:31)
[2018-07-09] MEDS: Divalproex 500 mg DR(BID formulation) PO SCH ×2 (09:34→21:07)
--- NOTE | 2018-07-09 13:07 | PCM.PYCHPN ---
Psychiatric Progress Note - Psychiatric Progress Note Patient seen today, length of contact: pt evaluated discussed with team chart reviewed Patient Chief Complaint: I want to start outpatient rehab Problems Identified/Issues Discussed: pt on evaluation is a poor historian guarded evasive , minimizing her substance use illness , anxious mood and irritable affect, limited insight into illness. motivational therapy provided , discussed with patient the effect of substance use on her current mental and social status, pt requesting to start outpatient rehab other than inpatient program, discussed monitoring depakote level and adjusting the dose as needed for mood stabilization, pt denied active thoughts of self harm on the unit denied perceptual disturbances Medical Problems: multiple admission to rehab DSM 5 Symptoms Update: bipolar I disorder polysubstance dependence/ opiate , sedatives , cocaine Medication Change: No Medical Record Reviewed: Yes Mental Status Examination - Cognitive Function Orientation: Person, Place Attention: WNL Concentration: WNL Association: WNL Fund of Knowledge: Poor Decription of patient's judgement and insights: poor insight and judgment - Mood Mood: Anxious - Affect Affect: Constricted, Depressed Additional comments: irritable - Speech Speech: Soft - Formal Thought Process Formal Thought Process: Circumstantial Psychotic Thoughts and Behaviors: none elicited - Suicidal Ideation Suicidal Ideation: No - Homicidal Ideation Homicidal Ideation: No Goal/Treatment Plan - Goal/Treatment Plan Need for Continued Stay: Severe depression anxiety, Discharge may exacerbated symptoms Progress Toward Problem(s) and Goals/Treatment Plan: neurontin 300mg tid depakote 500mg [id number] qhs for seizure/ discussed with DR babcock, as per her pt does not need to be on barbiturates for seizure, will monitor depakote level motivational group and supportive therapy
[2018-07-10] MEDS: Divalproex 500 mg DR(BID formulation) PO SCH ×2 (09:11→21:02)
--- NOTE | 2018-07-10 13:41 | PCM.PYCHPN ---
Psychiatric Progress Note - Psychiatric Progress Note Patient seen today, length of contact: pt evaluated discussed with team chart reviewed Patient Chief Complaint: I am not sleeping well Problems Identified/Issues Discussed: pt evaluated with treatment team, dysphoric affect, irritable mood, pt with limited insight into illness ambivalent about starting rehab program, motivational therapy provided discussed with pt effect of substance use on current social and mental status , pt rpeorted poor sleep and appetite, discussed starting seroquel for mood stabilization and depression pt denied active thoughts of self harm on the unit denied perceptual disturbance s Medical Problems: multiple admission to rehab DSM 5 Symptoms Update: bipolar I disorder polysubstance dependence Medication Change: No Medical Record Reviewed: Yes Mental Status Examination - Cognitive Function Orientation: Person, Place Attention: WNL Concentration: WNL Association: WNL Fund of Knowledge: Poor Decription of patient's judgement and insights: poor insight and judgment - Mood Mood: Anxious - Affect Affect: Constricted, Depressed - Speech Speech: Soft - Formal Thought Process Formal Thought Process: Circumstantial Psychotic Thoughts and Behaviors: none elicited - Suicidal Ideation Suicidal Ideation: No - Homicidal Ideation Homicidal Ideation: No Goal/Treatment Plan - Goal/Treatment Plan Need for Continued Stay: Severe depression anxiety, Discharge may exacerbated symptoms Progress Toward Problem(s) and Goals/Treatment Plan: neurontin 300mg tid depakote 500mg [id number] qhs for seizure/ depakote level noted 67 start seroquel 100mg qhs, increase gradually motivational group and supportive therapy
[2018-07-11] MEDS: Divalproex 500 mg DR(BID formulation) PO SCH ×2 (08:50→21:00)
[2018-07-11 10:17] VITALS: RESP 18; TEMP 98.1
--- NOTE | 2018-07-11 14:08 | PCM.PYCHPN ---
Psychiatric Progress Note - Psychiatric Progress Note Patient seen today, length of contact: pt evaluated discussed with team chart reviewed Patient Chief Complaint: I slept better with the seroquel Problems Identified/Issues Discussed: pt evaluated , less irritable and less depressed, brighter affect, reported improved sleep with seroquel, no reported side effects , no changes in appetite, observed attending groups and interacting with other patients pt denied active thoughts of self harm on the unit denied perceptual disturbances Medical Problems: multiple admission to rehab DSM 5 Symptoms Update: bipolar I disorder mixed polysubstance use disorder Medication Change: No Medical Record Reviewed: Yes Mental Status Examination - Cognitive Function Orientation: Person, Place Attention: WNL Concentration: WNL Association: WNL Fund of Knowledge: Poor Decription of patient's judgement and insights: poor insight and judgment - Mood Mood: Anxious - Affect Affect: Constricted, Depressed - Speech Speech: Soft - Formal Thought Process Formal Thought Process: Circumstantial Psychotic Thoughts and Behaviors: none elicited - Suicidal Ideation Suicidal Ideation: No - Homicidal Ideation Homicidal Ideation: No Goal/Treatment Plan - Goal/Treatment Plan Need for Continued Stay: Severe depression anxiety, Discharge may exacerbated symptoms Progress Toward Problem(s) and Goals/Treatment Plan: neurontin 300mg tid depakote 500mg [id number] qhs for seizure/ depakote level noted 67 seroquel 100mg qhs, motivational group and supportive therapy
[2018-07-12] MEDS: Divalproex 500 mg DR(BID formulation) PO SCH (09:03)
[2018-07-12 09:06] VITALS: BP 119/66; PULSE 63
--- NOTE | 2018-07-12 11:03 | PCM.PYCHDC ---
Mental Status Examination - Mental Status Examination Orientation: Person, Place, Situation Memory: Intact Mood: Neutral Affect: Broad Speech: Appropriate Attention: WNL Concentration: WNL Association: WNL Fund of Knowledge: WNL Formal Thought Process: No Impairment Description of patient's judgement and insight: poor insight and judgment Psychotic Thoughts and Behaviors: pt denied any psychotic symptoms on discharge, none elicited Suicidal Ideation: No Current Homicidal Ideation?: No Discharge Summary - Discharge Note Reason for Hospitalization: pt is 32ys old female with previous diagnosis of bipolar disorder and polysubstance use , brought to ER after expressing suicidal ideation in rehab with plan to cut herself with sharp object, pt recently transferred t rehab from [facility], with pain to spend 21 months, reported has been feeling increasingly depressed, relates that to her medical problems, and to the loss of custody of her children, pt also reported having difficulty adjusting to inpatient rehab and started experiencing suicidal ideation on evaluation pt presenting with depressed mood irritable affect, denied current active thoughts of self harm on the unit denied perceptual disturbances Consultations:: List each consultation separately and include: 1. Reason for r equest. 2. Findings. 3. Follow-up Summary of Hospital Course include:: 1. Description of specific treatment plan utilized for patients during their course of treatmen. 2. Summarize the time- course for resolution of acute symptoms and/or regressed behaviors. 3. Describe issues identified and worked on during hospitalization. 4. Describe medication utilized. 5. Describe medical problems identified and treated. 6. Reassessment of suicide risk Summary of Hospital Course: pt on admission presented with depressed mood edginess and irritability pt was started on neurontin, depakote and seroquel , pt was encouraged to attend groups, motivational group and supportive therapy provided no reported side effects of medications, depakote level was within normal/69 pt declined referral to inpatient rehab, was referred to outpatient [facility] and AA meetings on discharge pt was educated about risk of relapse and overdose mental status on discharge was stable, pt denied any current suicidal or homicidal ideation denied perceptuall disturbances - Diagnosis (1) Bipolar I disorder Status: Acute (2) Polysubstance dependence including opioid drug with daily use Status: Acute - Final Diagnosis (DSM 5) Condition upon Discharge: GOOD DSM 5: bipolar I disorder opiate dependence cocaine abuse Disposition: HOME/ ROUTINE Follow-up Treatment Plan: outpatient [place] / [facility] Prescriptions/Medication Reconciliation: Divalproex [Wei FELIZ(*BID*)] 1,000 mg PO HS 30 Days #60 tcp Divalproex [Wei FELIZ(*BID*)] 500 mg PO DAILY 30 Days #30 tcp Gabapentin [Neurontin] 300 mg PO TID 30 Days #90 cap QUEtiapine [Seroquel] 100 mg PO HS 30 Days #30 tab - Antipsychotic Medications Pt discharged on 2 or more routine antipsychotic medications: No
== END 2018-07-12 10:05 | disposition home or self-care (01) | DRG 430 ==
LOC: H.ER 20:41 → H.PSYCH 20:48
PROVIDERS: ADMIT Psychiatry & Neurology Psychiatry; ATTEND Psychiatry & Neurology Psychiatry
PROC: GZ3ZZZZ Medication Management (ICD-10-PCS; principal; 2018-07-07)
PROC: GZHZZZZ Group Psychotherapy (ICD-10-PCS; 2018-07-07)
PROC: GZ56ZZZ Individual Psychotherapy, Supportive (ICD-10-PCS; 2018-07-07)
DX: F31.60 Bipolar disorder, current episode mixed, unspecified (principal); F19.20 Other psychoactive substance dependence, uncomplicated; F11.20 Opioid dependence, uncomplicated; D68.59 Other primary thrombophilia; D57.1 Sickle-cell disease without crisis; F13.10 Sedative, hypnotic or anxiolytic abuse, uncomplicated; R45.851 Suicidal ideations; G40.909 Epilepsy, unspecified, not intractable, without status epilepticus; I10 Essential (primary) hypertension; E78.00 Pure hypercholesterolemia, unspecified; Z79.01 Long term (current) use of anticoagulants; Z79.899 Other long term (current) drug therapy; Z86.73 Personal history of transient ischemic attack (TIA), and cerebral infarction without residual deficits; F17.210 Nicotine dependence, cigarettes, uncomplicated; K21.9 Gastro-esophageal reflux disease without esophagitis

== ENCOUNTER 2018-07-18 10:57 | Emergency (ER) | payer MEDICAID ==
[2018-07-18 11:00] VITALS: BMI 25.1
[2018-07-18] MEDS ORDERED: Sodium Chloride 0.9% 1,000 ML IV STA (11:52)
[2018-07-18 16:15] LABS: ALB/GLOB RATIO 1.1 (1.0-2.1); ALBUMIN 3.6 g/dL (3.5-5.0); AST/SGOT 18 U/L (14-36); BLOOD UREA NITROGEN 6 mg/dl (7-17); CALCIUM 8.8 mg/dL (8.4-10.2); GFR NON-AFRICAN AMERICAN > 60; LIPASE 170 U/L (23-300)
--- NOTE | 2018-07-18 16:53 | RAD ---
Date of service: 07/18/2018 HISTORY: Cough COMPARISON: 12/20/2017 TECHNIQUE: Chest PA and lateral FINDINGS: LINES AND TUBES: None. LUNG AND PLEURA: The lungs are well inflated and clear. There is an azygous lobe fissure. No pleural effusion or pneumothorax. HEART AND MEDIASTINUM: The heart is not enlarged. No aortic atherosclerotic calcifications present. The hilar and mediastinal contours are within normal limits. SKELETAL STRUCTURES: The bony structures are within normal limits for the patient's age. VISUALIZED UPPER ABDOMEN: Normal. OTHER FINDINGS: None. IMPRESSION: No active pulmonary disease.
[2018-07-18 16:57] LABS: ALT/SGPT 25 U/L (9-52)
--- NOTE | 2018-07-18 16:57 | CT ---
Date of service: 07/18/2018 PROCEDURE: CT HEAD WITHOUT CONTRAST. HISTORY: UNKNOWN HEAD TRAUMA COMPARISON: 03/14/2018. TECHNIQUE: Axial computed tomography images were obtained through the head/brain without intravenous contrast. Radiation dose: Total exam DLP = 762.99 mGy-cm. This CT exam was performed using one or more of the following dose reduction techniques: Automated exposure control, adjustment of the mA and/or kV according to patient size, and/or use of iterative reconstruction technique. FINDINGS: HEMORRHAGE: No intracranial hemorrhage. BRAIN: Hill-white matter differentiation is preserved. There is no mass, mass effect or abnormal extra-axial fluid collection. There is no territorial infarction. The midline sagittal structures are normal. VENTRICLES: The ventricles are normal in size, shape and configuration. CALVARIUM: There is no calvarial fracture or extracranial soft tissue swelling. PARANASAL SINUSES: Predominantly clear. MASTOID AIR CELLS: Predominantly clear. OTHER FINDINGS: None. IMPRESSION: No acute intracranial abnormality.
[2018-07-18] MEDS ORDERED: Potassium Chloride 20 mEq ER Tab PO STA (17:48)
[2018-07-18 17:51] LABS: SQUAMOUS EPITHIAL < 1 /hpf (0-5); URINE BILIRUBIN NEGATIVE (NEGATIVE); URINE BLOOD NEGATIVE (NEGATIVE); URINE CLARITY CLEAR (Clear); URINE COLOR YELLOW (YELLOW); URINE GLUCOSE (UA) NEG (NEGATIVE); URINE LEUKOCYTE ESTERASE NEG Leu/uL (Negative); URINE PROTEIN NEGATIVE (NEGATIVE); URINE UROBILINOGEN 0.2-1.0 mg/dL (0.2-1.0)
[2018-07-18 18:12] LABS: BARBITURATES, UR POSITIVE (NEGATIVE); BENZODIAZEPINES, UR NEGATIVE (NEGATIVE); OPIATES, UR POSITIVE (NEGATIVE); PHENCYCLIDINE, UR NEGATIVE (NEGATIVE)
[2018-07-18] MEDS ORDERED: Potassium Chloride 20 mEq ER Tab PO ONE (18:21)
--- NOTE | 2018-07-18 18:38 | ED PDOC ---
HPI: Influenza Time Seen by Provider: 07/18/18 11:45 Chief Complaint: Flu-like Symptoms Chief Complaint (Provider): BODYACHES History Per: Patient Exam Limitations: clinical condition, intoxication (POSSIBLE SUBSTANCE INTOXICATION) Have you had recent travel within the past 21 days to any of: No Onset/Duration Of Symptoms: Unknown Symptoms include: bodyaches, vomiting Sick Contacts (Context): None Additional complaint(s):: 32 Y/O FEMALE CAME INTO THE ED C/O BODYACHES AND VOMITING SINCE LASTNIGHT, PATIENT IS POOR HISTORIAN AT THIS TIME. PT HAS HISTORY OF POLY SUBSTANCE ABUSE. PATIENT REPORTS SHE WAS VOMITING LASTNIGHT. SHE STATES THE LAST TIME SHE USED HEROIN, CRACK AND COCAINE WAS 3 DAYS AGO AND BODYACHES STARTED LASTNIGHT. PT IS DROWSY, OPENS EYES ON COMMAND, ANSWERING QUESTIONS BUT IS UNABLE TO CONTINUE A C ONVERSATION. Past Medical History Reviewed: Historical Data, Nursing Documentation, Vital Signs Vital Signs: Last Vital Signs Temp 98.5 F 07/18/18 16:32 Pulse 95 H 07/18/18 16:32 Resp 20 07/18/18 16:32 BP 134/83 07/18/18 16:32 Pulse Ox 98 07/18/18 16:32 - Medical History PMH: Anemia, Anxiety, Arthritis, Asthma, Back Problems, Bipolar Disorder, CAD, CVA (x 3, Protein C/S deficiency), Depression, Deep Vein Thrombosis, HTN, Hypercholesterolemia, Hyperlipidemia, Migraine, Schizophrenia, Seizures, Sickle Cell Disease, TIA, Chronic Pain Denies: Diabetes, Hepatitis, HIV, Chronic Kidney Disease, Sexually Transmitted Disease - Family History Family History: States: Unknown Family Hx, [place] - Living Arrangements Living Arrangements: Alone - Social History Alcohol: None Drugs: Cocaine, Opiates, Prescription medications - Immunization History Hx Tetanus Toxoid Vaccination: No Hx Influenza Vaccination: No Hx Pneumococcal Vaccination: No - Home Medications Home Medications: Ambulatory Orders Medication Instructions Recorded Aspirin [Adult Aspirin] 81 mg PO DAILY 03/20/18 Apixaban [Eliquis] 5 mg PO BID 07/07/18 Pantoprazole [Protonix EC Tab] 40 mg PO DAILY 07/07/18 Topiramate [Topamax] 25 mg PO BID 07/07/18 Divalproex [Wei FELIZ(*BID*)] 1,000 mg PO HS 30 Days #60 tcp 07/12/18 Divalproex [Depakote DR(*BID*)] 500 mg PO DAILY 30 Days #30 tcp 07/12/18 Gabapentin [Neurontin] 300 mg PO TID 30 Days #90 cap 07/12/18 QUEtiapine [Seroquel] 100 mg PO HS 30 Days #30 tab 07/12/18 - Allergies Allergies/Adverse Reactions: Allergies Allergy/AdvReac Type Severity Reaction Status Date / Time ketorolac tromethamine Allergy Mild SWELLING Verified 05/27/18 00:00 [From Toradol] naproxen [From Naprosyn] Allergy Mild URTICARIA Verified 05/27/18 00:00 polyethylene glycol 3350 Allergy Mild RASH Verified 05/27/18 00:00 [From Miralax] shellfish derived Allergy Mild ANAPHYLAXIS Verified 05/27/18 00:00 mushroom Allergy ANAPHYLAXIS Verified 05/27/18 00:00 ibuprofen [From Motrin] AdvReac Mild vomiting Verified 05/27/18 00:00 blood PORK AdvReac DIARRHEA Verified 05/27/18 00:00 nguyen Allergy Severe RASH Uncoded 05/27/18 00:00 Review of Systems Review Of Systems: ROS cannot be obtained secondary to pt's inabilty to answer questions. Constitutional: Positive for: Other (BODYACHES ) ENT: Negative for: Nose Pain, Throat Pain Cardiovascular: Negative for: Chest Pain Respiratory: Negative for: Cough, Shortness of Breath, SOB with Exertion, Wheezing Gastrointestinal: Positive for: Abdominal Pain (VERBALIZED EPIGASTRIC PAIN ) Physical Exam - Reviewed Nursing Documentation Reviewed: Yes Vital Signs Reviewed: Yes - Physical Exam Appears: Positive for: No Acute Distress Head Exam: Positive for: NORMAL INSPECTION, NORMOCEPHALIC Skin: Positive for: Normal Color, Warm Eye Exam: Positive for: Normal appearance, PERRL ENT: Negative for: Nasal Congestion, Tonsillar Exudate, Tonsillar Swelling Neck: Positive for: Normal, Supple Cardiovascular/Chest: Positive for: Regular Rate, Rhythm Respiratory: Positive for: Normal Breath Sounds Pulses-Radial (L): 2+ Pulses-Radial (R): 2+ Gastrointestinal/Abdominal: Positive for: Normal Exam, Soft, Tenderness (EPIGASTRIC ) Rectal: Positive for: Deferred Extremity: Positive for: Normal ROM Neurological/Psych: Positive for: Normal Tone, Oriented Medical Decision Making Medical Decision Making: CBC CMP LIPASE TROPONIN RETIC COUNT CXR CT HEAD 0.9NS L BOLUS k+: 3.3; KDUR 20MEQ PO 1600: PT IS AWAKE, AT THIS TIME PT VERBALZIES SHE WAS VOMITING LASTNIGHT. PT STATES SHE DOES NOT RECALL IF SHE FELL LASTNIGHT. CT HEAD WILL BE INCLUDED TO COURSE OF TREATMENT. LABS STILL PENDING. 1744: PENDING CBC, LAB CALLED, ORIGINAL ORDER WAS CANCELLED, MACHINE ATTENDANT NOT MADE AWARE. PT IS FULLY AWAKE AT THIS TIME AND REPORTS SHE CONTINUES TO HAVE PAIN WELL THAT SHE HAS HX OF SICKLE CELL AND TAKES DILAUDID 2MG PO, LAST DOSE YESTERDAY. PT STATES SHE IS HOMELESS AND HAS HER THINGS IN STORAGE. PT ALSO STATES THAT TYLENOL DOES "NOTHING" FOR HER PAIN THEREFORE SHE TAKES STRONGER M EDS IN THE STREETS. RETIC COUNT ADDED TO COURSE OF TREATMENT. 1900: RETIC COUNT 1.0. LABS REVIEWED, PATIENT ATE FOOD AND TOLERATED PO PER NURSE. CLINICAL FINDINGS DISCUSSED WITH PATIENT, PATIENT STABLE FOR D/C. PATIENT INSTRUCTED TO FOLLOW-UP WITH CLINIC. PT STATES SHE UNDERSTANDS. 16:49 CXR FINDINGS: LINES AND TUBES: None. LUNG AND PLEURA: The lungs are well inflated and clear. There is an azygous lobe fissure. No pleural effusion or pneumothorax. HEART AND MEDIASTINUM: The heart is not enlarged. No aortic atherosclerotic calcifications present. The hilar and mediastinal contours are within normal limits. SKELETAL STRUCTURES: The bony structures are within normal limits for the patient's age. VISUALIZED UPPER ABDOMEN: Normal. OTHER FINDINGS: None. IMPRESSION: No active pulmonary disease. 16:[address] FINDINGS: HEMORRHAGE: No intracranial hemorrhage. BRAIN: Hill-white matter differentiation is preserved. There is no mass, mass effect or abnormal extra-axial fluid collection. There is no territorial infarction. The midline sagittal structures are normal. VENTRICLES: The ventricles are normal in size, shape and configuration. CALVARIUM: There is no calvarial fracture or extracranial soft tissue swelling. PARANASAL SINUSES: Predominantly clear. MASTOID AIR CELLS: Predominantly clear. OTHER FINDINGS: None. IMPRESSION: No acute intracranial abnormality. - Laboratory Results Result Diagrams: 07/18/18 18:15 07/18/18 13:40 Lab Results: Troponin I < 0.0120 ng/mL (0.00-0.120) 07/18/18 13:40 Total Bilirubin 0.2 mg/dl (0.2-1.3) 07/18/18 13:40 AST 18 U/L (14-36) 07/18/18 13:40 ALT 25 U/L (9-52) 07/18/18 13:40 Alkaline Phosphatase 73 U/L (38-126) 07/18/18 13:40 Total Protein 6.9 G/DL (6.3-8.2) 07/18/18 13:40 Albumin 3.6 g/dL (3.5-5.0) 07/18/18 13:40 Globulin 3.3 gm/dL (2.2-3.9) 07/18/18 13:40 Albumin/Globulin Ratio 1.1 (1.0-2.1) 07/18/18 13:40 Lipase 170 U/L (23-300) 07/18/18 13:40 Urine Color Yellow (YELLOW) 07/18/18 17:20 Urine Clarity Clear (Clear) 07/18/18 17:20 Urine pH 8.0 (5.0-8.0) 07/18/18 17:20 Ur Specific [place] 1.011 (1.003-1.030) 07/18/18 17:20 Urine Protein Negative mg/dL (NEGATIVE) 07/18/18 17:20 Urine Glucose (UA) Neg mg/dL (NEGATIVE) 07/18/18 17:20 Urine Ketones Negative mg/dL (NEGATIVE) 07/18/18 17:20 Urine Blood Negative (NEGATIVE) 07/18/18 17:20 Urine Nitrate Negative (NEGATIVE) 07/18/18 17:20 Urine Bilirubin Negative (NEGATIVE) 07/18/18 17:20 Urine Urobilinogen 0.2-1.0 mg/dL (0.2-1.0) 07/18/18 17:20 Ur Leukocyte Esterase Neg Dre/uL (Negative) 07/18/18 17:20 Urine RBC (Auto) < 1 /hpf (0-3) 07/18/18 17:20 Urine Microscopic WBC 1 /hpf (0-5) 07/18/18 17:20 Ur Squamous Epith Cells < 1 /hpf (0-5) 07/18/18 17:20 Urine POC: Negative - ECG ECG: Positive for: Viewed By Ia ECG Rhythm: Positive for: Normal QRS Interpretation Of ECG: SEEN AND INTERPRETED BY DR. MESSER O2 Sat by Pulse Oximetry: 98 - Radiology X-Ray: Read By Radiologist X-Ray Interpretation: No Acute Disease Disposition - Clinical Impression Clinical Impression: Polysubstance abuse - Patient ED Disposition Is Patient to be Admitted: No Counseled Patient/Family Regarding: Diagnosis - Disposition Disposition: Routine/Home Disposition Time: 18:54 Condition: IMPROVED Instructions: Polysubstance Abuse (DC) Print Language: ROMANIAN - POA Present On Arrival: None
[2018-07-18 18:46] LABS: BASO # 0.1 K/uL (0.0-0.2); BASO % 1.1 % (0.0-2.0); EOS % 0.6 % (0.0-4.0); HEMOGLOBIN 13.4 g/dL (12.0-16.0); LYMPH # 1.6 K/uL (1.0-4.3); LYMPH % 20.2 % (20.0-40.0); MEAN CELL VOLUME 80.8 fl (81.0-99.0); MEAN CORPUSCULAR HGB CONC 32.2 g/dL (33.0-37.0); MEAN PLATELET VOLUME 8.5 fl (7.2-11.7); MONO # 0.5 K/uL (0.0-0.8); MONO % 6.7 % (0.0-10.0); NEUT # 5.5 K/uL (1.8-7.0); NEUT % 71.4 % (50.0-75.0); RBC 5.15 Mil/uL (3.80-5.20); RED CELL DISTRIBUTION WIDTH 16.6 % (11.5-14.5); WHITE BLOOD COUNT 7.7 K/uL (4.8-10.8)
--- NOTE | 2018-07-18 19:03 | CARD ---
APPROVED REPORT Date of service: 07/18/2018 EKG Measurement Heart [id number] <Conclusion> Normal sinus rhythm Normal ECG
[2018-07-18 20:30] VITALS: BP 129/63; PULSE 83; RESP 18; TEMP 98.3; O2SAT 99
== END 2018-07-18 19:50 | disposition home or self-care (01) ==
LOC: H.ER 10:57
DX: F19.10 Other psychoactive substance abuse, uncomplicated (principal); E78.00 Pure hypercholesterolemia, unspecified; F31.9 Bipolar disorder, unspecified; I10 Essential (primary) hypertension; Z79.01 Long term (current) use of anticoagulants; Z86.718 Personal history of other venous thrombosis and embolism; Z86.73 Personal history of transient ischemic attack (TIA), and cerebral infarction without residual deficits; Z88.6 Allergy status to analgesic agent
CPT/HCPCS: 70450; 71046; 80053; 80320; 80324; 80345; 80346; 80349; 80353; 80358; 80361; 81003; 81025; 83690; 83992; 84484; 85025; 85044; 87070; 87430; 87804; 93005; 96360; 99284; J7030

== ENCOUNTER 2018-07-24 19:53 | Inpatient (IN) | payer MEDICAID ==
[2018-07-24 19:53] VITALS: BMI 25.1
--- NOTE | 2018-07-24 21:41 | ED PDOC ---
HPI: Psych/Substance Abuse Time Seen by Provider: 07/24/18 20:15 Chief Complaint (Nursing): Substance Abuse Chief Complaint (Provider): Substance Abuse History Per: Patient, Other (boyfriend) History/Exam Limitations: no limitations Onset/Duration Of Symptoms: Mins (just before arrival) Current Symptoms Are (Timing): Still Present Additional Complaint(s): 32 year old female with extensive pmhx and history of substance abuse presents to the ED via EMS and accompanied by boyfriend s/p falling down a flight of stairs. Patient reports she took a "bunch" of Dilaudid today along with heroin and alcohol and then fell down the stairs at her boyfriend's place. She states her right leg hurts, but otherwise denies suicidal ideation, homicidal ideation, chest pain, hip pain, headache, and dizziness. Patient is somnolent during discussion and notes she is hungry, but as soon as boyfriend mentioned food, patient sat up and was aaox3. Of note, patient is non-compliant with any medication she is supposed to be on, and has children that were taken away from her due to substance abuse. PMD: none provided Past Medical History Reviewed: Historical Data, Nursing Documentation, Vital Signs Vital Signs: Last Vital Signs Temp 98.7 F 07/24/18 20:00 Pulse 102 H 07/24/18 20:00 Resp 17 07/24/18 20:00 BP 131/73 07/24/18 20:00 Pulse Ox 100 07/24/18 20:00 - Medical History PMH: Anemia, Anxiety, Arthritis, Asthma, Back Problems, Bipolar Disorder, CAD, CVA (x 3, Protein C/S deficiency), Depression, Deep Vein Thrombosis, HTN, Hypercholesterolemia, Hyperlipidemia, Migraine, Schizophrenia, Seizures, Sickle Cell Disease, TIA, Chronic Pain Denies: Diabetes, Hepatitis, HIV, Chronic Kidney Disease, Sexually Transmitted Disease - Family History Family History: States: [place] - Living Arrangements Living Arrangements: Other (with boyfriend) - Social History Current smoker - smoking cessation education provided: Yes Alcohol: Other (hx abuse, daily drinker) Drugs: Prescription medications, Other (hx of abuse; heroin) - Immunization History Hx Tetanus Toxoid Vaccination: No Hx Influenza Vaccination: No Hx Pneumococcal Vaccination: No - Home Medications Home Medications: Ambulatory Orders Medication Instructions Recorded Aspirin [Adult Aspirin] 81 mg PO DAILY 03/20/18 Apixaban [Eliquis] 5 mg PO BID 07/07/18 Pantoprazole [Protonix EC Tab] 40 mg PO DAILY 07/07/18 Divalproex [Depakote DR(*BID*)] 1,000 mg PO HS 30 Days #60 tcp 07/12/18 Divalproex [Depakote DR(*BID*)] 500 mg PO DAILY 30 Days #30 tcp 07/12/18 Gabapentin [Neurontin] 300 mg PO TID 30 Days #90 cap 07/12/18 QUEtiapine [Seroquel] 100 mg PO HS 30 Days #30 tab 07/12/18 Topiramate [Topamax] 100 mg PO BID 07/25/18 hydrOXYzine Pamoate [Vistaril] 50 mg PO TID 07/25/18 - Allergies Allergies/Adverse Reactions: Allergies Allergy/AdvReac Type Severity Reaction Status Date / Time ketorolac tromethamine Allergy Mild SWELLING Verified 05/27/18 00:00 [From Toradol] naproxen [From Naprosyn] Allergy Mild URTICARIA Verified 05/27/18 00:00 polyethylene glycol 3350 Allergy Mild RASH Verified 05/27/18 00:00 [From Miralax] shellfish derived Allergy Mild ANAPHYLAXIS Verified 05/27/18 00:00 mushroom Allergy ANAPHYLAXIS Verified 05/27/18 00:00 ibuprofen [From Motrin] AdvReac Mild vomiting Verified 05/27/18 00:00 blood PORK AdvReac DIARRHEA Verified 05/27/18 00:00 nguyen Allergy Severe RASH Uncoded 05/27/18 00:00 Review of Systems ROS Statement: Except As Marked, All Systems Reviewed And Found Negative Cardiovascular: Negative for: Chest Pain Respiratory: Negative for: Shortness of Breath Musculoskeletal: Positive for: Leg Pain (right) Neurological: Negative for: Headache, Dizziness Psych: Positive for: Other (substance abuse). Negative for: Suicidal ideation (or homicidal ideation) Physical Exam - Reviewed Nursing Documentation Reviewed: Yes Vital Signs Reviewed: Yes - Physical Exam Appears: Positive for: No Acute Distress (but poor hygiene) Head Exam: Positive for: ATRAUMATIC, NORMOCEPHALIC Skin: Positive for: Normal Color, Warm. Negative for: Rash Eye Exam: Positive for: Normal appearance Neck: Positive for: Normal, Painless ROM, Supple Cardiovascular/Chest: Positive for: Regular Rate, Rhythm Respiratory: Positive for: Normal Breath Sounds. Negative for: Respiratory Distress Gastrointestinal/Abdominal: Positive for: Normal Exam, Soft. Negative for: Tenderness Back: Positive for: Normal Inspection Extremity: Positive for: Normal ROM (all extremities full ROM), Other (neurovacular intact in all 4 ext). Negative for: Calf Tenderness, Deformity, Swelling Neurological/Psych: Positive for: Awake, Alert, Oriented (x3), Mood/Affect (somnolent), Other (flat affect, no insight ) - Laboratory Results Result Diagrams: 07/24/18 22:13 07/24/18 22:13 - ECG O2 Sat by Pulse Oximetry: 100 (RA) Pulse Ox Interpretation: Normal Medical Decision Making Medical Decision Making: Time: 2131 Initial Impression: substance abuse, r/o blood clot given protein c and s def, rule out intracranial process, crisis eval Initial Plan: --Acetaminophen chemistry --Alcohol serum --CMP --Drug screen --Salicylate chemistry --CBC with differential --Urinalysis --US duplex bilateral lower extremities due to protein c/s deficiency 2299 Patient care endorsed to Dr. Gunn pending workup and reevaluation Scribe Attestation: Documented by Mady Miller, acting as a scribe for Filipe Cortez MD. Provider Scribe Attestation: All medical record entries made by the Scribe were at my direction and personally dictated by me. I have reviewed the chart and agree that the record accurately reflects my personal performance of the history, physical exam, medical decision making, and the department course for this patient. I have also personally directed, reviewed, and agree with the discharge instructions and disposition. Disposition - Clinical Impression Clinical Impression: Polysubstance abuse, Depression (emotion) - Patient ED Disposition Is Patient to be Admitted: Transfer of Care - Disposition Disposition: Transfer of Care Disposition Time: 23:00 Condition: STABLE Patient Signed Over To: Jacinto Gunn
[2018-07-24 22:20] LABS: BASO % 0.7 % (0.0-2.0); EOS # 0.3 K/uL (0.0-0.7); EOS % 3.8 % (0.0-4.0); HEMOGLOBIN 13.2 g/dL (12.0-16.0); LYMPH # 2.2 K/uL (1.0-4.3); LYMPH % 32.3 % (20.0-40.0); MEAN CELL VOLUME 79.9 fl (81.0-99.0); MEAN CORPUSCULAR HEMOGLOBIN 25.7 pg (27.0-31.0); MEAN CORPUSCULAR HGB CONC 32.2 g/dL (33.0-37.0); MEAN PLATELET VOLUME 7.9 fl (7.2-11.7); MONO # 0.8 K/uL (0.0-0.8); MONO % 12.2 % (0.0-10.0); NEUT # 3.5 K/uL (1.8-7.0); NRBC % 0.5 % (0.0-0.0); RBC 5.13 Mil/uL (3.80-5.20); RED CELL DISTRIBUTION WIDTH 16.6 % (11.5-14.5); WHITE BLOOD COUNT 6.8 K/uL (4.8-10.8)
[2018-07-24 22:29] LABS: ACETAMINOPHEN < 10.0 ug/ml (10.0-30.0); SALICYLATE < 1.0 mg/dl
[2018-07-24 22:36] LABS: ALB/GLOB RATIO 1.1 (1.0-2.1); ALBUMIN 4.1 g/dL (3.5-5.0); ALT/SGPT 22 U/L (9-52); AST/SGOT 17 U/L (14-36); BLOOD UREA NITROGEN 14 mg/dl (7-17); CALCIUM 8.9 mg/dL (8.4-10.2); GFR NON-AFRICAN AMERICAN > 60
--- NOTE | 2018-07-24 23:27 | ED PDOC ---
- Laboratory Results Result Diagrams: 07/24/18 22:13 07/24/18 22:13 Lab Results: Total Bilirubin 0.2 mg/dl (0.2-1.3) 07/24/18 22:13 AST 17 U/L (14-36) 07/24/18 22:13 ALT 22 U/L (9-52) 07/24/18 22:13 Alkaline Phosphatase 79 U/L (38-126) 07/24/18 22:13 Total Protein 7.7 G/DL (6.3-8.2) 07/24/18 22:13 Albumin 4.1 g/dL (3.5-5.0) 07/24/18 22:13 Globulin 3.6 gm/dL (2.2-3.9) 07/24/18 22:13 Albumin/Globulin Ratio 1.1 (1.0-2.1) 07/24/18 22:13 - ECG O2 Sat by Pulse Oximetry: 100 (RA) Pulse Ox Interpretation: Normal Medical Decision Making Medical Decision Makin:00 Patient signed out to this provider by Dr. Cortez pending CT, labs, crisis evaluation, and final disposition. Patient in no distress with stable vitals at time of handoff. 23:35 Duplex US FINDINGS: DEEP VEINS: The common femoral, superficial femoral, and popliteal veins are echolucent and compressible. There is normal color Doppler flow throughout. The visualized calf veins appear patent. SUPERFICIAL VEINS: The visualized greater saphenous vein is patent. SOFT TISSUES: No popliteal fossa cyst or other abnormalities. IMPRESSION: No deep venous thrombosis evident on bilateral lower extremity examination. 01:[address] FINDINGS: BRAIN: No acute intraparenchymal hemorrhage. No mass lesion. No CT evidence for acute territorial infarct. No midline shift or extra-axial collections. VENTRICLES: No hydrocephalus. ORBITS: The orbits are unremarkable. SINUSES AND MASTOIDS: The paranasal sinuses and mastoid air cells are clear. BONES: No fracture. SOFT TISSUES: Unremarkable. IMPRESSION: No acute intracranial abnormality. Little change in comparison with July 18, 2018 3:00 Patient more awake, alert, asking for food 7:00 Patient pending crisis eval, will endorse to Dr. Roberto Scribe Attestation: Documented by Deidre Welsh, acting as a scribe Cortez Gunn MD Provider Scribe Attestation: All medical record entries made by the Scribe were at my direction and personally dictated by me. I have reviewed the chart and agree that the record accurately reflects my personal performance of the history, physical exam, medical decision making, and the department course for this patient. I have also personally directed, reviewed, and agree with the discharge instructions and disposition. Disposition - Clinical Impression Clinical Impression: Polysubstance abuse, Depression (emotion) - POA Present On Arrival: None - Disposition Disposition: Transfer of Care Disposition Time: 07:00 Condition: STABLE Patient Signed Over To: Ac Roberto Handoff Comments: Pending crisis eval and final dispo
--- NOTE | 2018-07-25 10:00 | ED PDOC ---
- Laboratory Results Result Diagrams: 07/24/18 22:13 07/24/18 22:13 Lab Results: Total Bilirubin 0.2 mg/dl (0.2-1.3) 07/24/18 22:13 AST 17 U/L (14-36) 07/24/18 22:13 ALT 22 U/L (9-52) 07/24/18 22:13 Alkaline Phosphatase 79 U/L (38-126) 07/24/18 22:13 Total Protein 7.7 G/DL (6.3-8.2) 07/24/18 22:13 Albumin 4.1 g/dL (3.5-5.0) 07/24/18 22:13 Globulin 3.6 gm/dL (2.2-3.9) 07/24/18 22:13 Albumin/Globulin Ratio 1.1 (1.0-2.1) 07/24/18 22:13 - ECG O2 Sat by Pulse Oximetry: 98 - Progress ED Course And Treament: 700: Took over care from Dr. Gunn. Fu with crisis eval. 900: Stable. Pending crisis. 1140: Stable. AAOx3. Pain free. Crisis saw pt. Does not meet criteria for admit. Disposition - Clinical Impression Clinical Impression: Polysubstance abuse, Depression (emotion) - POA Present On Arrival: None - Disposition Disposition: Admitted as In-Patient Disposition Time: 11:11 Condition: STABLE
[2018-07-25 10:21] LABS: SQUAMOUS EPITHIAL < 1 /hpf (0-5); URINE BILIRUBIN NEGATIVE (NEGATIVE); URINE BLOOD NEGATIVE (NEGATIVE); URINE CLARITY CLEAR (Clear); URINE COLOR YELLOW (YELLOW); URINE GLUCOSE (UA) NEG (NEGATIVE); URINE LEUKOCYTE ESTERASE NEG Leu/uL (Negative); URINE PROTEIN NEGATIVE (NEGATIVE); URINE UROBILINOGEN 0.2-1.0 mg/dL (0.2-1.0)
[2018-07-25 10:48] LABS: BARBITURATES, UR POSITIVE (NEGATIVE); BENZODIAZEPINES, UR POSITIVE (NEGATIVE); OPIATES, UR POSITIVE (NEGATIVE); PHENCYCLIDINE, UR NEGATIVE (NEGATIVE)
--- NOTE | 2018-07-25 11:05 | RAD ---
PROCEDURE: Radiographs of the pelvis and bilateral hips HISTORY: Trauma. Anatomic area of interest greater trochanter. COMPARISON: None. TECHNIQUE: 2 views obtained. FINDINGS: BONES: Pelvis: Unremarkable. Right hip:Unremarkable. Left hip:Unremarkable. JOINTS: Right hip: Unremarkable. Left hip: Unremarkable. Sacroiliac Joints: Unremarkable. Pubic symphysis: Unremarkable. SOFT TISSUES: Normal. OTHER FINDINGS: None. IMPRESSION: Unremarkable radiographs of the hips and pelvis.
--- NOTE | 2018-07-25 12:15 | CT ---
Date of service: 07/25/2018 PROCEDURE: CT HEAD WITHOUT CONTRAST. HISTORY: fall COMPARISON: 07/18/2018. TECHNIQUE: Axial computed tomography images were obtained through the head/brain without intravenous contrast. Supplemental Coronal and Sagittal projections created and reviewed. Radiation dose: Total exam DLP = 768.41 mGy-cm. This CT exam was performed using one or more of the following dose reduction techniques: Automated exposure control, adjustment of the mA and/or kV according to patient size, and/or use of iterative reconstruction technique. FINDINGS: HEMORRHAGE: No intracranial hemorrhage. BRAIN: No mass effect or edema. No atrophy or chronic microvascular ischemic changes. VENTRICLES: Unremarkable. No hydrocephalus. CALVARIUM: Unremarkable. PARANASAL SINUSES: Unremarkable as visualized. No significant inflammatory changes. MASTOID AIR CELLS: Unremarkable as visualized. No inflammatory changes. OTHER FINDINGS: None. IMPRESSION: No acute intracranial abnormalities. No significant findings to account for the clinical presentation. No significant interval change compared to the prior examination(s). Concordant results (preliminary interpretation) provided by [facility]. Procedure Completed: 00:07. Preliminary Report: Interpreted and electronically signed: 01:07. Final Interpretation: 12:11.
--- NOTE | 2018-07-25 12:19 | US ---
Date of service: 07/24/2018 PROCEDURE: Bilateral lower extremity venous duplex Doppler. HISTORY: r leg pain sp fall history of proteinC S defic COMPARISON: None available. TECHNIQUE: Bilateral common femoral, superficial femoral, popliteal and posterior tibial veins were evaluated. Flow was assessed with color Doppler, compressibility, assessment of phasic flow and augmentation response. FINDINGS: COMMON FEMORAL VEIN: Right CFV: Unremarkable. Left CFV: Unremarkable. SUPERFICIAL FEMORAL VEIN: Right SFV: Unremarkable. Left SFV: Unremarkable. POPLITEAL VEIN: Right Popliteal: Unremarkable. Left Popliteal: Unremarkable. POSTERIOR TIBIAL VEIN: Right PTV: Unremarkable. Left PTV: Unremarkable. OTHER FINDINGS: None. IMPRESSION: No evidence of deep venous thrombosis. The preliminary findings for this examination were reported by [facility] at 11:29 p.m. on 07/24/2018. There is concurrence of this report with the preliminary findings.
[2018-07-25] MEDS ORDERED: DiphenhydrAMINE 50 mg/ml Inj IM PRN (13:46)
[2018-07-25] MEDS ORDERED: Alum-Mag Hydrox-Simethicone Susp (30 mL) PO PRN (13:46)
[2018-07-25] MEDS ORDERED: Magnesium Hydroxide Susp 30 ml UD PO PRN (13:46)
[2018-07-25] MEDS ORDERED: Pneumococcal 23-Valent Vaccine IM ONE (14:53)
--- NOTE | 2018-07-25 15:26 | PCM.PSYCH ---
Initial Psychiatric Evaluation - Initial Psychiatric Evaluation Type of Admission: Voluntary Chief Complaint (in patient's own words): I took a bunch of pills History of Present Illness and Precipitating Events: pt is a32ys old female brought to ER by boyfriend after she sustained a fall due to overdose on opiates, cocaine and barbiturates, pt recently discharged from hospital non compliant with medications or follow up relapses on dilaudid, barbiturates and cocaine, related that to being depressed in the context of being homelees, having financial difficulties and loosing her children custody with inability to see them due to a restraining order pt on the unit presenting with anxious mood edgy and irritable affect, limited insight into illness denied perceptual disturbances, denied active thoughts of self harm on the unit Current Medications: Active Medications Generic Name Dose Route Start Last Admin Trade Name Freq PRN Reason Stop Dose Admin Al Hydrox/Mg Hydrox/Simethicone 30 ml 07/25/18 13:46 Maalox Plus 30 Ml PO Q4 PRN Dyspepsia Clonidine HCl 0.1 mg 07/25/18 17:00 Catapres PO TID JODIE Diphenhydramine HCl 50 mg 07/25/18 13:46 Benadryl IM Q6 PRN Extrapyramidal S/S Unable PO Diphenhydramine HCl 50 mg 07/25/18 13:46 Benadryl PO Q6 PRN Extrapyramidal Symptoms Gabapentin 300 mg 07/25/18 17:00 Neurontin PO TID JODIE Haloperidol 5 mg 07/25/18 13:46 Haldol PO Q4 PRN Agitation Haloperidol Lactate 5 mg 07/25/18 13:46 Haldol IM Q4 PRN Agitation, Unable to Take PO Lorazepam 2 mg 07/25/18 13:46 Ativan IM Q4 PRN Anxiety/Agitation,Unable PO Lorazepam 2 mg 07/25/18 13:46 Ativan PO Q4 PRN Anxiety/Agitation Lorazepam 2 mg 07/25/18 17:00 Ativan PO TID JODIE Magnesium Hydroxide 30 ml 07/25/18 13:46 Milk Of Magnesia PO HS PRN Constipation Pneumococcal Polyvalent Vaccine 0.5 ml 07/25/18 14:53 Pneumovax 23 Vaccine IM 07/25/18 14:54 .ONCE ONE Quetiapine Fumarate 100 mg 07/25/18 22:00 Seroquel PO HS [facility] Past Psychiatric History - Past Psychiatric History Explanation of prior treatment: multiple hospiatlaizations and rehab admissions, hx of non compliance History of ETOH/Drug Use: alcohol, opiates, cocaine cannabis benzodiazepine Pertinent Medical Hx (Current Medical&Sleep Prob, Allergies): Allergies Allergy/AdvReac Type Severity Reaction Status Date / Time ketorolac tromethamine Allergy Mild SWELLING Verified 05/27/18 00:00 [From Toradol] naproxen [From Naprosyn] Allergy Mild URTICARIA Verified 05/27/18 00:00 polyethylene glycol 3350 Allergy Mild RASH Verified 05/27/18 00:00 [From Miralax] shellfish derived Allergy Mild ANAPHYLAXIS Verified 05/27/18 00:00 mushroom Allergy ANAPHYLAXIS Verified 05/27/18 00:00 ibuprofen [From Motrin] AdvReac Mild vomiting Verified 05/27/18 00:00 blood PORK AdvReac DIARRHEA Verified 05/27/18 00:00 nguyen Allergy Severe RASH Uncoded 05/27/18 00:00 RX: Aspirin [Adult Aspirin] 81 mg PO DAILY 03/20/18 RX: Apixaban [Eliquis] 5 mg PO BID 07/07/18 RX: Pantoprazole [Protonix EC Tab] 40 mg PO DAILY 07/07/18 RX: Divalproex [Depakote DR(*BID*)] 1,000 mg PO HS 30 Days #60 tcp 07/12/18 RX: Divalproex [Depakote DR(*BID*)] 500 mg PO DAILY 30 Days #30 tcp 07/12/18 RX: Gabapentin [Neurontin] 300 mg PO TID 30 Days #90 cap 07/12/18 RX: QUEtiapine [Seroquel] 100 mg PO HS 30 Days #30 tab 07/12/18 RX: Topiramate [Topamax] 100 mg PO BID 07/25/18 hydrOXYzine Pamoate [Vistaril] 50 mg PO TID 07/25/18 Mental Status Examination - Personal Presentation Personal Presentation: Looks older than stated age - Affect Affect: Constricted, Depressed - Motor Activity Motor Activity: Psychomotor Agitation - Reliability in Providing Information Reliability in Providing Information: Fair - Speech Speech: Relevant - Mood Mood: Depressed, Anxious - Formal Thought Process Formal Thought Process: Circumstantial - Obsessions/Compulsions Obsessions: No Compulsions: No - Cognitive Functions Orientation: Person, Place Sensorium: Alert Attention/Concentration: Attentive Abstract Thinking: [place] Estimate of Intelligence: Average Judgement: Imparied, as evidence by: Poor judgement, Imparied, as evidence by: Lack of insight into illness - Risk Risk: Suicidal, Withdrawal, Diminished functioning - Strength & Assets Inventory Strength & Assets Inventory: Life experience - Limitations Additional comments: poor compliance DSM 5 DX - DSM 5 DSM 5 Diagnosis: bipolar disorder depressed barbiturate abuse cocaine abuse cannabis abuse - Recommended/Plan of Treatment Treatment Recommendations and Plan of Treatment: pt started on clonidine protocol/ will be monitored for symptoms and signs of opiate withdrawal neurontin 300mg tid / for anxiety and withdrawal seizures ativan 2mg tid / momitor for symptoms and signs of barbiturate withdrawal seroquel 100mg qhs increase gradually motivational group and supportive therapy internal medicine consult
[2018-07-25] MEDS ORDERED: Divalproex 500 mg DR(BID formulation) PO SCH ×2 (16:45→22:00)
--- NOTE | 2018-07-25 17:13 | PCM.RRT ---
<Marilee Caldwell - Last Filed: 07/25/18 17:44> HANDLE SEWER Nurse Assessment - Situation Location: [address] [place] [address] HANDLE SEWER Reason for Call: Change in Mental Status HANDLE SEWER Called By: RN - IV IV Inserted during HANDLE SEWER?: No - Respiratory Oxygen Delivery Method: Mask Received Nebulizer Treatments: No Was the Patient Ventilated with Bag/Mask 100% O2?: No Secretions Suctioned?: No Was the Patient Intubated?: No Was the Patient Placed on a Ventilator?: No - Medication Medications Administered During HANDLE SEWER: Ativan 2mg IM x1 @1625 - Diagnostic Test Ordered EKG: No Chest X-Ray: No CT Scan: No CPR started during HANDLE SEWER?: No - Vital Signs Vital Signs: Rapid Response Vital Sign Blood Pressure 108/67 Pulse Rate 76 Respiratory Rate 14 Oxygen Saturation 99 - Time HANDLE SEWER Ended Time HANDLE SEWER Ended: 16:51 - Vital Signs at end of HANDLE SEWER Vital Signs at end of HANDLE SEWER: Rapid Response End Vital Sign Blood Pressure 116/78 Pulse Rate 90 Respiratory Rate 21 O2 Sat by Pulse Oximetry 96 - Recommendations HANDLE SEWER Level of Care Recommendations: Remain in current setting - Constitutional Appears: Older Than Stated Age - Head Head Exam: NORMOCEPHALIC - Eyes Eye Exam: PERRL - Respiratory Exam Respiratory Exam: NORMAL BREATHING PATTERN - Cardiovascular Exam Cardiovascular Exam: REGULAR RHYTHM, +S1, +S2 - GI/Abdominal Exam GI & Abdominal Exam: Soft, Normal Bowel Sounds. absent: Rigid, Tenderness - Neurological Exam Neurological Exam: Alert, Awake, Oriented x3 - Extremities Exam Extremities Exam: absent: Calf Tenderness Plan - Assessment of Findings&Treatment Plan HANDLE SEWER responder: Dr. Kenney HANDLE SEWER time: 4:16pm HANDLE SEWER end time: 4:46pm HANDLE SEWER called on 32 y/o F for change in mental status. Patient has a hx of protein c & s deficiency, sickle cell anemia, bipolar disorder with depression, and polysubstance abuse (barbiturate, cocaine & cannabis). As per nurse, patient was sitting down, and began having convulsions. Patient did not hit her head. Convulsions were witnessed & patient was lethargic. -Initial VS: 180/100; repeated 166/105 -Pulse: 76 -RR:14 -spo2-97% on room air Interventions: -Ativan 2mg IM given -Accu check: 96 -oxygen given via nonrebreather- saturation 99% -Dapokote & topiramate levels ordered Following Ativan & oxygen, patient became responsive & was oriented x 3. -End VS: VS: 110/ 72 108/67 -Pulse: 76 -RR:14 -spo2-99% on room air A/P: 32 y/o F, currently stable, hx of protein c & s deficiency, sickle cell a nemia, bipolar disorder with depression, and polysubstance abuse (barbiturate, cocaine & cannabis) with HANDLE SEWER called for change in mental status due to seizure. -Depakote 1000mg ordered BID with dose to be given now -FU depakote & topirimate level -Continue psych admission <Dasia Kenney [place] - Last Filed: 07/27/18 15:42> HANDLE SEWER Nurse Assessment - Vital Signs Vital Signs: Rapid Response Vital Sign Blood Pressure 108/67 Pulse Rate 76 Respiratory Rate 14 Oxygen Saturation 99 - Vital Signs at end of HANDLE SEWER Vital Signs at end of HANDLE SEWER: Rapid Response End Vital Sign Blood Pressure 116/78 Pulse Rate 90 Respiratory Rate 21 O2 Sat by Pulse Oximetry 96 Attending/Attestation - Attestation I have personally seen and examined this patient.: Yes I have fully participated in the care of the patient.: Yes I have reviewed all pertinent clinical information, including history, physical exam and plan: Yes Notes (Text): 32 y/o F for change in mental status. Patient has a hx of protein c & s deficiency, sickle cell anemia, bipolar disorder with depression, and polysubstance abuse (barbiturate, cocaine & cannabis). As per nurse, patient was sitting down, and began having convulsions. Patient did not hit her head. Convulsions were witnessed & patient was lethargic. HANDLE SEWER was called for breakthrough seizure. Ativan 2 mg IM given. When patient awoke she was not in a postictal state. She was able to answer questions appropriately clearly and immediately. She was hemodynamically stable and in no acute distress. She was loaded with Depakote at 1000 milligrams x1 and then continued on her home dose.
[2018-07-25] MEDS: Divalproex 500 mg DR(BID formulation) PO SCH (17:27)
[2018-07-25 17:33] VITALS: O2SAT 100
--- NOTE | 2018-07-25 17:48 | CP.PCM.CON ---
<Marilee Caldwell - Last Filed: 07/25/18 18:04> History of Present Illness - History of Present Illness History of Present Illness: Hx taken from patient and previous notes 32 y/o F with hx of protein 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 Patient reports being unable to recall the fall, but does admit to multidrug use that day. She reports some right hip pain that began after the fall, but denied any f/c/headache, blurred vision, cp or sob. PMH: hx of CVA in early , protein c & s deficiency, migraines; sickle cell anemia Meds: elliquis, seroquel, gabapentin, depakote, topiramate, protonix, vistaril Allergies: naproxen, motrin, mirilax, ketorolac- hives; throat swelling Surghx: left ovarian cyst removal Famhx: maternal aunt with bleeding disoreder Sochx: polysubstance abuse -cigarette( > 1 ppd > 10 yrs), barbiturate, cocaine, opoid & cannabis ROS: all 12 points reviewed and are negative unless otherwise mentioned in HPI Past Patient History - Infectious Disease Hx of Infectious Diseases: None - Tetanus Immunizations Tetanus Immunization: Unknown - Past Medical History & Family History Past Medical History?: Yes - Past Social History Alcohol: Other (hx abuse, daily drinker) Drugs: Prescription medications, Other (hx of abuse; heroin) - CARDIAC Hx Hypercholesterolemia: Yes Hx Hypertension: Yes - PULMONARY Hx Asthma: Yes - NEUROLOGICAL Hx Migraine: Yes Hx Seizures: Yes Hx Transient Ischemic Attacks (TIA): Yes - HEENT Hx HEENT Problems: No Other/Comment: wears glasses - RENAL Hx Chronic Kidney Disease: No - ENDOCRINE/METABOLIC Hx Endocrine Disorders: No - HEMATOLOGICAL/ONCOLOGICAL Hx Anemia: Yes Hx Human Immunodeficiency Virus (HIV): No Hx Sickle Cell Disease: Yes - INTEGUMENTARY Hx Dermatological Problems: No - MUSCULOSKELETAL/RHEUMATOLOGICAL Hx Arthritis: Yes - GASTROINTESTINAL Hx Gastrointestinal Disorders: Yes Hx Gastroesophageal Reflux: Yes - GENITOURINARY/GYNECOLOGICAL Hx Sexually Transmitted Disorders: No - PSYCHIATRIC Hx Anxiety: Yes Hx Bipolar Disorder: Yes Hx Depression: Yes Hx Schizophrenia: Yes - SURGICAL HISTORY Hx Surgeries: Yes (L ovarian cyst) Other/Comment: cyst removed from left ovary. I & D L Leg abscess - ANESTHESIA Hx Anesthesia: Yes Hx Anesthesia Reactions: Yes (states "couldn't breathe") Meds Allergies/Adverse Reactions: Allergies Allergy/AdvReac Type Severity Reaction Status Date / Time ketorolac tromethamine Allergy Mild SWELLING Verified 07/27/18 12:29 [From Toradol] naproxen [From Naprosyn] Allergy Mild URTICARIA Verified 07/27/18 12:29 polyethylene glycol 3350 Allergy Mild RASH Verified 07/27/18 12:29 [From Miralax] shellfish derived Allergy Mild ANAPHYLAXIS Verified 07/27/18 12:29 mushroom Allergy ANAPHYLAXIS Verified 07/27/18 12:29 ibuprofen [From Motrin] AdvReac Mild vomiting Verified 07/27/18 12:29 blood PORK AdvReac DIARRHEA Verified 07/27/18 12:29 nguyen Allergy Severe RASH Uncoded 07/27/18 12:29 - Medications Medications: Current Medications Al Hydrox/Mg Hydrox/Simethicone (Maalox Plus 30 Ml) 30 ml PO Q4 PRN PRN Reason: Dyspepsia Apixaban (Eliquis) 5 mg PO BID [facility]; Protocol Clonidine HCl (Catapres) 0.1 mg PO TID [facility] Last Admin: 07/25/18 17:28 Dose: Not Given Diphenhydramine HCl (Benadryl) 50 mg IM Q6 PRN PRN Reason: Extrapyramidal S/S Unable PO Diphenhydramine HCl (Benadryl) 50 mg PO Q6 PRN PRN Reason: Extrapyramidal Symptoms Divalproex Sodium (Depakote Dr(*Bid*)) 1,000 mg PO BID [facility] Last Admin: 07/25/18 17:27 Dose: 1,000 mg Gabapentin (Neurontin) 300 mg PO TID [facility] Last Admin: 07/25/18 17:30 Dose: Not Given Haloperidol (Haldol) 5 mg PO Q4 PRN PRN Reason: Agitation Haloperidol Lactate (Haldol) 5 mg IM Q4 PRN PRN Reason: Agitation, Unable to Take PO Lorazepam (Ativan) 2 mg IM Q4 PRN PRN Reason: Anxiety/Agitation,Unable PO Lorazepam (Ativan) 2 mg PO Q4 PRN PRN Reason: Anxiety/Agitation Lorazepam (Ativan) 2 mg PO TID [facility] Last Admin: 07/25/18 17:27 Dose: 2 mg Magnesium Hydroxide (Milk Of Magnesia) 30 ml PO HS PRN PRN Reason: Constipation Nicotine (Nicoderm Cq) 1 patch TD DAILY [facility] Last Admin: 07/25/18 17:27 Dose: Not Given Quetiapine Fumarate (Seroquel) 100 mg PO HS [facility] Topiramate (Topamax) 100 mg PO BID [facility] Last Admin: 07/25/18 17:29 Dose: 100 mg Physical Exam - Constitutional Appears: Non-toxic, Older Than Stated Age - Head Exam Head Exam: NORMOCEPHALIC - Eye Exam Pupil Exam: PERRL - ENT Exam ENT Exam: Mucous Membranes Moist - Respiratory Exam Respiratory Exam: Clear to Auscultation Bilateral, NORMAL BREATHING PATTERN - Cardiovascular Exam Cardiovascular Exam: REGULAR RHYTHM, +S1, +S2 - GI/Abdominal Exam GI & Abdominal Exam: Normal Bowel Sounds, Soft. absent: Rigid, Tenderness - Extremities Exam Extremities exam: Negative for: calf tenderness - Neurological Exam Neurological exam: Alert, CN II-XII Intact, Oriented x3 Additional comments: strength & sensation intact b/l - Psychiatric Exam Psychiatric exam: Normal Mood - Skin Skin Exam: Dry Results - Vital Signs Recent Vital Signs: Last Vital Signs Temp 97.9 F 07/25/18 13:00 Pulse 88 07/25/18 13:00 Resp 16 07/25/18 13:00 BP 112/67 07/25/18 13:00 Pulse Ox 100 07/25/18 17:33 - Labs Result Diagrams: 07/24/18 22:13 07/24/18 22:13 Labs: Laboratory Results - last 24 hr 07/24/18 07/24/18 07/24/18 20:31 22:13 22:13 WBC RBC Hgb Hct MCV MCH MCHC RDW Plt Count MPV Neut % (Auto) Lymph % (Auto) [place] % (Auto) Eos % (Auto) Baso % (Auto) Neut # (Auto) Lymph # (Auto) Morgan # (Auto) Eos # (Auto) Baso # (Auto) Sodium 139 Potassium 3.6 Chloride 105 Carbon Dioxide 23 Anion Gap 15 BUN 14 Creatinine 0.8 Est GFR ( Amer) > 60 Est GFR (Non-Af Amer) > 60 POC Glucose (mg/dL) 108 Random Glucose 98 Calcium 8.9 Total Bilirubin 0.2 AST 17 ALT 22 Alkaline Phosphatase 79 Total Protein 7.7 Albumin 4.1 Globulin 3.6 Albumin/Globulin Ratio 1.1 Urine Color Urine Clarity Urine pH Ur Specific [place] Urine Protein Urine Glucose (UA) Urine Ketones Urine Blood Urine Nitrate Urine Bilirubin Urine Urobilinogen Ur Leukocyte Esterase Urine RBC (Auto) Urine Microscopic WBC Ur Squamous Epith Cells Salicylates < 1.0 Urine Opiates Screen Urine Methadone Screen Acetaminophen < 10.0 L Ur Barbiturates Screen Ur Phencyclidine Scrn Ur Amphetamines Screen U Benzodiazepines Scrn U Oth Cocaine Metabols U Cannabinoids Screen Alcohol, Quantitative < 10 07/24/18 07/25/18 07/25/18 22:13 09:52 10:05 WBC 6.8 RBC 5.13 Hgb 13.2 Hct 40.9 MCV 79.9 L MCH 25.7 L MCHC 32.2 L RDW 16.6 H Plt Count 234 MPV 7.9 Neut % (Auto) 51.0 Lymph % (Auto) 32.3 Morgan % (Auto) 12.2 H Eos % (Auto) 3.8 Baso % (Auto) 0.7 Neut # (Auto) 3.5 Lymph # (Auto) 2.2 Morgan # (Auto) 0.8 Eos # (Auto) 0.3 Baso # (Auto) 0.0 Sodium Potassium Chloride Carbon Dioxide Anion Gap BUN Creatinine Est GFR ( Amer) Est GFR (Non-Af Amer) POC Glucose (mg/dL) Random Glucose Calcium Total Bilirubin AST ALT Alkaline Phosphatase Total Protein Albumin Globulin Albumin/Globulin Ratio Urine Color Yellow Urine Clarity Clear Urine pH 8.0 Ur Specific [place] 1.012 Urine Protein Negative Urine Glucose (UA) Neg Urine Ketones Negative Urine Blood Negative Urine Nitrate Negative Urine Bilirubin Negative Urine Urobilinogen 0.2-1.0 Ur Leukocyte Esterase Neg Urine RBC (Auto) < 1 Urine Microscopic WBC 1 Ur Squamous Epith Cells < 1 Salicylates Urine Opiates Screen Positive H Urine Methadone Screen Negative Acetaminophen Ur Barbiturates Screen Positive H Ur Phencyclidine Scrn Negative Ur Amphetamines Screen Negative U Benzodiazepines Scrn Positive U Oth Cocaine Metabols Positive H U Cannabinoids Screen Negative Alcohol, Quantitative 04/11/19 16:36 WBC RBC Hgb Hct MCV MCH MCHC RDW Plt Count MPV Neut % (Auto) Lymph % (Auto) [place] % (Auto) Eos % (Auto) Baso % (Auto) Neut # (Auto) Lymph # (Auto) Morgan # (Auto) Eos # (Auto) Baso # (Auto) Sodium Potassium Chloride Carbon Dioxide Anion Gap BUN Creatinine Est GFR ( Amer) Est GFR (Non-Af Amer) POC Glucose (mg/dL) 73 Random Glucose Calcium Total Bilirubin AST ALT Alkaline Phosphatase Total Protein Albumin Globulin Albumin/Globulin Ratio Urine Color Urine Clarity Urine pH Ur Specific [place] Urine Protein Urine Glucose (UA) Urine Ketones Urine Blood Urine Nitrate Urine Bilirubin Urine Urobilinogen Ur Leukocyte Esterase Urine RBC (Auto) Urine Microscopic WBC Ur Squamous Epith Cells Salicylates Urine Opiates Screen Urine Methadone Screen Acetaminophen Ur Barbiturates Screen Ur Phencyclidine Scrn Ur Amphetamines Screen U Benzodiazepines Scrn U Oth Cocaine Metabols U Cannabinoids Screen Alcohol, Quantitative Assessment & Plan - Assessment and Plan (Free Text) Assessment: 32 y/o F with hx of CVA in early 20's ( on lifetime anticoagulation) protein c & s deficiency, sickle cell anemia, migraines, bipolar disorder with depression, and polysubstance abuse (cigarette, barbiturate, cocaine, opoid & cannabis) was brought to the ED for evaluation after having a fall due to polysubstance abuse with psych admission 1. Hx of CVA with protein C & S deficiency -C/w eliquis 2. sickle cell anemia 3. Bipolar depression -C/w management as per psych 4. Seizure disorder -C/w Depakote 1000mg BID 5. hx of migraines --C/w topiramate Case discussed with Dr. Kenney <Dasia Kenney - Last Filed: 07/27/18 15:40> Meds - Medications Medications: Current Medications Al Hydrox/Mg Hydrox/Simethicone (Maalox Plus 30 Ml) 30 ml PO Q4 PRN PRN Reason: Dyspepsia Apixaban (Eliquis) 5 mg PO BID JODIE; Protocol Last Admin: 07/27/18 08:56 Dose: 5 mg Atorvastatin Calcium (Lipitor) 40 mg PO HS JODIE Last Admin: 07/26/18 21:29 Dose: 40 mg Clonidine HCl (Catapres) 0.1 mg PO TID [facility] Last Admin: 07/27/18 09:23 Dose: Not Given Diphenhydramine HCl (Benadryl) 50 mg IM Q6 PRN PRN Reason: Extrapyramidal S/S Unable PO Diphenhydramine HCl (Benadryl) 50 mg PO Q6 PRN PRN Reason: Extrapyramidal Symptoms Divalproex Sodium (Depakote Dr(*Bid*)) 500 mg PO DAILY [facility] Last Admin: 07/27/18 09:25 Dose: 500 mg Divalproex Sodium (Depakote Dr(*Bid*)) 1,000 mg PO HS [facility] Stop: 07/27/18 19:01 Last Admin: 07/27/18 06:29 Dose: Not Given Gabapentin (Neurontin) 300 mg PO TID [facility] Last Admin: 07/27/18 09:26 Dose: 300 mg Haloperidol (Haldol) 5 mg PO Q4 PRN PRN Reason: Agitation Haloperidol Lactate (Haldol) 5 mg IM Q4 PRN PRN Reason: Agitation, Unable to Take PO Lorazepam (Ativan) 2 mg IM Q4 PRN PRN Reason: Anxiety/Agitation,Unable PO Last Admin: 07/25/18 16:25 Dose: 2 mg Lorazepam (Ativan) 2 mg PO Q4 PRN PRN Reason: Anxiety/Agitation Lorazepam (Ativan) 1 mg PO BID [facility] Magnesium Hydroxide (Milk Of Magnesia) 30 ml PO HS PRN PRN Reason: Constipation Nicotine (Nicoderm Cq) 1 patch TD DAILY [facility] Last Admin: 07/27/18 09:26 Dose: 1 patch Quetiapine Fumarate (Seroquel) 100 mg PO HS [facility] Last Admin: 07/26/18 21:29 Dose: 100 mg Topiramate (Topamax) 100 mg PO BID [facility] Last Admin: 07/27/18 09:31 Dose: 100 mg Results - Vital Signs Recent Vital Signs: Last Vital Signs Temp 98.6 F 07/26/18 10:00 Pulse 87 07/27/18 09:23 Resp 18 07/26/18 10:00 BP 110/75 07/27/18 09:23 Pulse Ox 100 07/25/18 20:48 - Labs Result Diagrams: 07/24/18 22:13 07/24/18 22:13 Labs: Laboratory Results - last 24 hr 07/26/18 07/27/18 08:35 12:05 POC Glucose (mg/dL) 120 H RPR Nonreactive Attending/Attestation - Attestation I have personally seen and examined this patient.: Yes I have fully participated in the care of the patient.: Yes I have reviewed all pertinent clinical information: Yes Notes (Text): 32 y/o F with hx of protein 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 Patient reports being unable to recall the fall, but does admit to multidrug use that day. She reports some right hip pain that began after the fall, but denied any f/c/headache, blurred vision, cp or sob. Currently admitted for mood disorder secondary to absence of use. She has a history of seizures as well for which she was on Depakote and phenobarbital. She was discontinued off the phenobarbital for abuse. She was continued on the Depakote however is noncompliant. We have reinitiated her seizure medications. Currently hemodynamically stable no acute distress.
[2018-07-26 09:26] VITALS: RESP 18; TEMP 98.6
[2018-07-26] MEDS: Divalproex 500 mg DR(BID formulation) PO SCH ×2 (09:30→18:14)
--- NOTE | 2018-07-26 13:21 | PCM.PYCHPN ---
Psychiatric Progress Note - Psychiatric Progress Note Patient seen today, length of contact: pt evaluated chart reviewed Patient Chief Complaint: I am tired and I need to rest Problems Identified/Issues Discussed: pt seen in bed , guarded , evasive, reported feeling tired, low energy and anhedonia, possible due to barbiturate and opiate withdrawal, pt denied any current episodes of loss of consciousness , pt has been loaded with depakote encouraged pt to attempt to attend groups, also educated about benefits of starting inpatient rehab pt showing limited insight into her illness , denid any current suicidal or homicidal ideation, denied perceptual disturbances Medical Problems: multiple hospiatlaizations and rehab admissions, hx of non compliance DSM 5 Symptoms Update: bipolar disorder polysubstance dependence Medication Change: No Medical Record Reviewed: Yes Mental Status Examination - Cognitive Function Orientation: Person, Place Memory: Intact Attention: WNL Concentration: Poor Association: WNL Fund of Knowledge: Poor Decription of patient's judgement and insights: poor insight and judgment - Mood Mood: Depressed, Anxious - Affect Affect: Constricted, Depressed - Speech Speech: Soft - Formal Thought Process Formal Thought Process: Circumstantial - Suicidal Ideation Suicidal Ideation: No - Homicidal Ideation Homicidal Ideation: No Goal/Treatment Plan - Goal/Treatment Plan Need for Continued Stay: Discharge may exacerbated symptoms, Failed transitioning Progress Toward Problem(s) and Goals/Treatment Plan: pt started on clonidine protocol/ will be monitored for symptoms and signs of opiate withdrawal neurontin 300mg tid / for anxiety and withdrawal seizures depakote 1000mg bid/ follow up on depakote level ativan 2mg tid / momitor for symptoms and signs of barbiturate withdrawal seroquel 100mg qhs increase gradually motivational group and supportive therapy
[2018-07-26] MEDS ORDERED: Divalproex 500 mg DR(BID formulation) PO ONE (19:15)
[2018-07-26] MEDS ORDERED: Divalproex 500 mg DR(BID formulation) PO SCH (22:00)
[2018-07-27] MEDS ORDERED: Divalproex 250 mg DR(BID formulation) PO SCH (09:00)
[2018-07-27 09:24] VITALS: BP 110/75; PULSE 87
--- NOTE | 2018-07-27 10:54 | PCM.PYCHPN ---
Psychiatric Progress Note - Psychiatric Progress Note Patient seen today, length of contact: pt evaluated chart reviewed Patient Chief Complaint: pt has remained depressed and withdrawn and this could be withdrawl from polysubstances including barbiturates and opoids and pt also has had two s yncopal episodes of passing out one last and one yesterday and DEPLOYMENT SPECIALIST was called on and as per RN pt was also verbally unresponsive today in the dining area and was placed back in bed and regained conciousness and she called dr dudley who told her that she would send a resident.I was told by staff that hospitalist consult was called yesterday when she had a syncopal episode and hospitalist told the RN that a resident would come but no one has come to see the pt since the DEPLOYMENT SPECIALIST on last .Neurology consult was called this morning as well and pt is on high dose of depakote as she has h/o seizure disorder .pt still appears lethargic and talks slowly in low volume .no psychosis noted. pt is on close observation and vitals monitoring . Medication Change: Yes (hold clonidine and Ativan because of drowsiness) Medical Record Reviewed: Yes Mental Status Examination - Cognitive Function Orientation: Person, Place Memory: Intact Attention: Poor Concentration: Poor Association: WNL Fund of Knowledge: WNL - Mood Mood: Depressed, Anxious - Affect Affect: Blunted, Depressed - Speech Speech: Soft - Formal Thought Process Formal Thought Process: Circumstantial - Suicidal Ideation Suicidal Ideation: No - Homicidal Ideation Homicidal Ideation: No Goal/Treatment Plan - Goal/Treatment Plan Need for Continued Stay: Discharge may exacerbated symptoms, Failed transitioning Progress Toward Problem(s) and Goals/Treatment Plan: will continue the current regimen of depakote and topamax as she is high risk for seizures but hold ativan and clonidine till pt seen by hospitalist today. follow up with medicine and neurology Spoke with dr dudley regarding pt having multiple episodes of syncope past 2 days and this am and expressed my concerns for pt being acutely ill and is risk for more seizure episodes and need for her to be seen right away and requested her to see the patient and she initially told me that she is not coming because she has just finished her round with residents and would send a resident as it is part of training of residents and educating them but when i insisted that this is a acute emergent state of patient and my fears of something bad happening to the patient she told me to send the patient to ER and she is not coming .nursing building cleaning supervisor carl was present during my telephonic conversation with dr dudley and she helped arranging transfer of pt to ER [facility] .but while pt was prepared for transfer and was being transfered in the stretcher she began having full blown grand mal seizure and myself and staff witnessed it and DEPLOYMENT SPECIALIST was called rightaway and safety of pt secured and airway checked and vitals monitored till DEPLOYMENT SPECIALIST team arrived .pt after medical stabilization transfered to ER and as per dr oliver pt would be admitted to medical floor.for further medical stabilization of seizur es and EEG monitoring and neuro and cardiac work up for syncopal episodes.
[2018-07-27] MEDS ORDERED: levETIRAcetam 1,000 MG in Sodium Chloride 0.9% 100 ML IVPB STA (12:04)
--- NOTE | 2018-07-27 12:32 | PCM.RRT ---
ABSTRACT WRITER Nurse Assessment - Situation Location: [address] [place] [address] ABSTRACT WRITER Reason for Call: Change in Mental Status ABSTRACT WRITER Called By: RN - IV IV Inserted during ABSTRACT WRITER?: No - Respiratory Oxygen Delivery Method: Mask Received Nebulizer Treatments: No Was the Patient Ventilated with Bag/Mask 100% O2?: No Secretions Suctioned?: No Was the Patient Intubated?: No Was the Patient Placed on a Ventilator?: No - Medication Medications Administered During ABSTRACT WRITER: Ativan 2mg IM x1 @1625 - Diagnostic Test Ordered EKG: No Chest X-Ray: No CT Scan: No CPR started during ABSTRACT WRITER?: No - Vital Signs Vital Signs: Rapid Response Vital Sign Blood Pressure 108/67 Pulse Rate 76 Respiratory Rate 14 Oxygen Saturation 99 - Time ABSTRACT WRITER Ended Time ABSTRACT WRITER Ended: 16:51 - Vital Signs at end of ABSTRACT WRITER Vital Signs at end of ABSTRACT WRITER: Rapid Response End Vital Sign Blood Pressure 116/78 Pulse Rate 90 Respiratory Rate 21 O2 Sat by Pulse Oximetry 96 - Recommendations ABSTRACT WRITER Level of Care Recommendations: Remain in current setting I.Reason for ABSTRACT WRITER - A) Acute Change in Patient: Subjective: 32yo female with PMH of protein C&S diff, Sickle cell anemia, Bipolar, depression and polysubstance abuse (barbiturate cocaine and cannabis) With ABSTRACT WRITER Called due to patient seizing. Upon arrival patien vitals were wnl, afebrile, BP wNL, and no tachycardia. Patient received 2mg Ativan 1 loading dose of Keppra and sent to ER for re-admission. After first dose of Ativan patient woke up with no post-ictal symptoms. Pt was alert and oriented. Duration of seizure was at least 10 mint Patient did not hit her head. Patient vitals were wnl thru out the seizure. Interventions IM Ativan 2mg loading dose of Keppra Patient was sent to ER for possible re-admission CT scan ordered follow up reading. Case discussed with Dr Willis - Neurological Status (Select all that apply): Alert, Responsive, Oriented, Verbal - Constitutional Appears: Well, Non-toxic, No Acute Distress - Head Head Exam: ATRAUMATIC, NORMAL INSPECTION, NORMOCEPHALIC - Respiratory Exam Respiratory Exam: Clear to Ausculation Bilateral, NORMAL BREATHING PATTERN - Cardiovascular Exam Cardiovascular Exam: REGULAR RHYTHM - GI/Abdominal Exam GI & Abdominal Exam: Soft, Normal Bowel Sounds - Neurological Exam Neurological Exam: Alert, Awake, CN II-XII Intact, Oriented x3 - Extremities Exam Extremities Exam: Full ROM, Normal Capillary Refill, Normal Inspection
== END 2018-07-27 12:15 | disposition short-term general hospital (02) | DRG 430 ==
LOC: H.ER 19:53 → H.ERHOLD 07-25 11:38 → H.PSYCH 07-25 13:24
PROVIDERS: ADMIT Psychiatry & Neurology Psychiatry; ATTEND Psychiatry & Neurology Psychiatry
PROC: GZ51ZZZ Individual Psychotherapy, Behavioral (ICD-10-PCS; principal; 2018-07-25)
PROC: GZ56ZZZ Individual Psychotherapy, Supportive (ICD-10-PCS; 2018-07-25)
DX: F31.30 Bipolar disorder, current episode depressed, mild or moderate severity, unspecified (principal); G40.409 Other generalized epilepsy and epileptic syndromes, not intractable, without status epilepticus; D57.1 Sickle-cell disease without crisis; D68.59 Other primary thrombophilia; F13.10 Sedative, hypnotic or anxiolytic abuse, uncomplicated; F14.10 Cocaine abuse, uncomplicated; F19.20 Other psychoactive substance dependence, uncomplicated; F20.9 Schizophrenia, unspecified; I10 Essential (primary) hypertension; E78.5 Hyperlipidemia, unspecified; I25.10 Atherosclerotic heart disease of native coronary artery without angina pectoris; J45.909 Unspecified asthma, uncomplicated; K21.9 Gastro-esophageal reflux disease without esophagitis; Z91.81 History of falling; Z79.01 Long term (current) use of anticoagulants; Z79.82 Long term (current) use of aspirin; Z86.73 Personal history of transient ischemic attack (TIA), and cerebral infarction without residual deficits; Z91.14 Patient's other noncompliance with medication regimen; Z91.19 Patient's noncompliance with other medical treatment and regimen; D64.9 Anemia, unspecified; F41.9 Anxiety disorder, unspecified; G43.909 Migraine, unspecified, not intractable, without status migrainosus; G89.29 Other chronic pain; M19.90 Unspecified osteoarthritis, unspecified site; Z79.899 Other long term (current) drug therapy; M79.604 Pain in right leg; E78.00 Pure hypercholesterolemia, unspecified; F12.10 Cannabis abuse, uncomplicated; F17.200 Nicotine dependence, unspecified, uncomplicated

== ENCOUNTER 2018-07-27 12:21 | Inpatient (IN) | payer MEDICAID ==
[2018-07-27 12:28] VITALS: BMI 28.3
[2018-07-27] MEDS ORDERED: levETIRAcetam 1,000 MG in Sodium Chloride 0.9% 100 ML IV ONE (13:00)
[2018-07-27] MEDS ORDERED: Divalproex 500 mg DR(BID formulation) PO ONE (13:02)
[2018-07-27 14:00] LABS: VENOUS BLOOD GAS BASE EXCESS -3.2 mmol/L (0.0-2.0); VENOUS BLOOD GAS PCO2 32 mmHg (40-60); VENOUS BLOOD GAS PO2 56 mm/Hg (30-55); VENOUS BLOOD PH 7.41 (7.32-7.43)
[2018-07-27 14:15] LABS: BASO # 0.1 K/uL (0.0-0.2); BASO % 1.1 % (0.0-2.0); EOS # 0.1 K/uL (0.0-0.7); EOS % 1.5 % (0.0-4.0); HEMOGLOBIN 16.1 g/dL (12.0-16.0); LYMPH # 3.3 K/uL (1.0-4.3); LYMPH % 34.6 % (20.0-40.0); MEAN CELL VOLUME 80.2 fl (81.0-99.0); MEAN CORPUSCULAR HEMOGLOBIN 26.1 pg (27.0-31.0); MEAN CORPUSCULAR HGB CONC 32.6 g/dL (33.0-37.0); MEAN PLATELET VOLUME 8.1 fl (7.2-11.7); MONO # 0.8 K/uL (0.0-0.8); MONO % 8.2 % (0.0-10.0); NEUT # 5.3 K/uL (1.8-7.0); NEUT % 54.6 % (50.0-75.0); NRBC % 0.1 % (0.0-0.0); RBC 6.15 Mil/uL (3.80-5.20); RED CELL DISTRIBUTION WIDTH 16.7 % (11.5-14.5); WHITE BLOOD COUNT 9.7 K/uL (4.8-10.8)
--- NOTE | 2018-07-27 14:41 | CP.PCM.HP ---
<Sultan Jeanie - Last Filed: 07/27/18 15:35> History of Present Illness - History of Present Illness History of Present Illness: History taken from patient and review of patients medical records 32 year old Female admitted to [facility] for evaluation and management of syncope and seizure disorder. 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 Patient was initially admitted to inpatient psychiatry unit on 07/25/18 for worsening bipolar depression and substance use disorder. Patient had an GRAPE PICKER this morning for seizure episode that lasted >10 minutes, received Ativan 2 mg IM and sent to ED for further evaluation. Currently, patient is alert, awake and oriented. No post-ictal confusion. Patient reports she had 2 episodes of syncope this morning. Denies any head injury. Reports she feels tired and dizzy however attributes it to Ativan she received earlier. Denies any sore mouth, tongue laceration, chest pain, dyspnea, headache, nausea, vomiting, urinary incontinence or focal weakness. ROS: All 12 systems reviewed and negative except as mentioned above PMH: hx of CVA in early , protein c & s deficiency, migraines; sickle cell trait Meds: elliquis, seroquel, gabapentin, depakote, topiramate, protonix, vistaril Allergies: naproxen, motrin, mirilax, ketorolac- hives; throat swelling Surghx: left ovarian cyst removal Family hx: maternal aunt with bleeding disorder Sochx: polysubstance abuse -cigarette( > 1 ppd > 10 yrs), barbiturate, cocaine, opioid & cannabis Present on Admission - Present on Admission Any Indicators Present on Admission: No Review of Systems - Review of Systems All systems: reviewed and no additional remarkable complaints except (as mentioned in HPI) Past Patient History - Infectious Disease Hx of Infectious Diseases: None - Tetanus Immunizations Tetanus Immunization: Unknown - Past Medical History & Family History Past Medical History?: Yes - Past Social History Smoking Status: Heavy Smoker > 10 Cigarettes Daily - CARDIAC Hx Hypercholesterolemia: Yes Hx Hypertension: Yes - PULMONARY Hx Asthma: Yes - NEUROLOGICAL Hx Migraine: Yes Hx Seizures: Yes Hx Transient Ischemic Attacks (TIA): Yes - HEENT Hx HEENT Problems: No Other/Comment: wears glasses - RENAL Hx Chronic Kidney Disease: No - ENDOCRINE/METABOLIC Hx Endocrine Disorders: No - HEMATOLOGICAL/ONCOLOGICAL Hx Anemia: Yes Hx Human Immunodeficiency Virus (HIV): No Hx Sickle Cell Disease: Yes - INTEGUMENTARY Hx Dermatological Problems: No - MUSCULOSKELETAL/RHEUMATOLOGICAL Hx Arthritis: Yes - GASTROINTESTINAL Hx Gastrointestinal Disorders: Yes Hx Gastroesophageal Reflux: Yes - GENITOURINARY/GYNECOLOGICAL Hx Sexually Transmitted Disorders: No - PSYCHIATRIC Hx Anxiety: Yes Hx Bipolar Disorder: Yes Hx Depression: Yes Hx Schizophrenia: Yes Hx Substance Use: Yes - SURGICAL HISTORY Hx Surgeries: Yes (L ovarian cyst) Other/Comment: cyst removed from left ovary. I & D L Leg abscess - ANESTHESIA Hx Anesthesia: Yes Hx Anesthesia Reactions: Yes (states "couldn't breathe") Meds Allergies/Adverse Reactions: Allergies Allergy/AdvReac Type Severity Reaction Status Date / Time ketorolac tromethamine Allergy Mild SWELLING Verified 07/27/18 12:29 [From Toradol] naproxen [From Naprosyn] Allergy Mild URTICARIA Verified 07/27/18 12:29 polyethylene glycol 3350 Allergy Mild RASH Verified 07/27/18 12:29 [From Miralax] shellfish derived Allergy Mild ANAPHYLAXIS Verified 07/27/18 12:29 mushroom Allergy ANAPHYLAXIS Verified 07/27/18 12:29 ibuprofen [From Motrin] AdvReac Mild vomiting Verified 07/27/18 12:29 blood PORK AdvReac DIARRHEA Verified 07/27/18 12:29 nguyen Allergy Severe RASH Uncoded 07/27/18 12:29 Physical Exam - Constitutional Appears: Non-toxic, No Acute Distress - Head Exam Head Exam: ATRAUMATIC, NORMAL INSPECTION - Eye Exam Eye Exam: EOMI, Normal appearance, PERRL - ENT Exam ENT Exam: Mucous Membranes Moist Additional comments: No tongue laceration - Respiratory Exam Respiratory Exam: Clear to Auscultation Bilateral, NORMAL BREATHING PATTERN. absent: Rhonchi, Wheezes, Respiratory Distress - Cardiovascular Exam Cardiovascular Exam: REGULAR RHYTHM, +S1, +S2 - GI/Abdominal Exam GI & Abdominal Exam: Normal Bowel Sounds, Soft. absent: Tenderness - Extremities Exam Extremities exam: Positive for: normal inspection. Negative for: calf tenderness - Back Exam Back exam: NORMAL INSPECTION - Neurological Exam Neurological exam: Alert, CN II-XII Intact, Oriented x3 Additional comments: Left upper hand medical assistant internal medicine strength 4/5 (stable as per patient since her CVA) - Psychiatric Exam Psychiatric exam: Anxious, Depressed - Skin Skin Exam: Normal Color Results - Vital Signs Recent Vital Signs: Last Vital Signs Temp Pulse 109 H 07/27/18 12:21 Resp 16 07/27/18 12:21 BP 108/69 07/27/18 12:21 Pulse Ox 98 07/27/18 12:26 - Labs Result Diagrams: 07/27/18 14:08 Labs: Laboratory Results - last 24 hr 07/27/18 07/27/18 13:06 14:08 WBC 9.7 RBC 6.15 H Hgb 16.1 H D Hct 49.3 H MCV 80.2 L MCH 26.1 L MCHC 32.6 L RDW 16.7 H Plt Count 325 MPV 8.1 Neut % (Auto) 54.6 Lymph % (Auto) 34.6 Gilmer % (Auto) 8.2 Eos % (Auto) 1.5 Baso % (Auto) 1.1 Neut # (Auto) 5.3 Lymph # (Auto) 3.3 Gilmer # (Auto) 0.8 Eos # (Auto) 0.1 Baso # (Auto) 0.1 pO2 56 H VBG pH 7.41 VBG pCO2 32 L VBG HCO3 22.1 VBG Total CO2 21.3 L VBG O2 Sat (Calc) 93.2 H VBG Base Excess -3.2 L VBG Potassium 4.2 Sodium 139.0 Chloride 108.0 H Glucose 89 Lactate 1.4 FiO2 21.0 Venous Blood Potassium 4.2 Assessment & Plan - Assessment and Plan (Free Text) Assessment: 32 year old Female admitted to [facility] for evaluation and management of syncope and seizure disorder. 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 Plan: Seizure disorder -s/p 1 gm keppra and 1 gm depakote in ED -Start depakote 750 mg po bid -Neurology consult: Dr. Manzanares, f/u rec -f/u head CT w/o contrast -f/u AM labs Hx multiple syncope -stable vitals -ECG: NSR @[address]/T wave changes -f/u head CT, carotid duplex US and echo -f/u AM labs Bipolar depression -resume Seroquel 100 mg po hs -Psychiatry consult Multiple substance use disorders -Utox on 07/25/18 positive for Opiates, barbiturates and cocaine -Monitor symptoms -Hold Ativan for now -c/w Gabapentin 300 mg po TID Migraine headache -c/w Topamax 100 mg po BID Hx Protein C & S deficiency and CVA -C/W aspirin and Eliquis -c/w Atorvastatin 40 mg po hs DVT prophylaxis -On Eliquis 5 mg po bid Plan discussed with Dr. Pablito Ware, PYG-2 <Dasia Kenney - Last Filed: 07/27/18 16:12> Results - Vital Signs Recent Vital Signs: Last Vital Signs Temp Pulse 109 H 07/27/18 12:21 Resp 16 07/27/18 12:21 BP 108/69 07/27/18 12:21 Pulse Ox 98 07/27/18 14:48 - Labs Result Diagrams: 07/27/18 14:08 07/27/18 14:08 Labs: Laboratory Results - last 24 hr 07/27/18 07/27/18 07/27/18 13:06 14:08 14:08 WBC 9.7 RBC 6.15 H Hgb 16.1 H D Hct 49.3 H MCV 80.2 L MCH 26.1 L MCHC 32.6 L RDW 16.7 H Plt Count 325 MPV 8.1 Neut % (Auto) 54.6 Lymph % (Auto) 34.6 Gilmer % (Auto) 8.2 Eos % (Auto) 1.5 Baso % (Auto) 1.1 Neut # (Auto) 5.3 Lymph # (Auto) 3.3 Gilmer # (Auto) 0.8 Eos # (Auto) 0.1 Baso # (Auto) 0.1 pO2 56 H VBG pH 7.41 VBG pCO2 32 L VBG HCO3 22.1 VBG Total CO2 21.3 L VBG O2 Sat (Calc) 93.2 H VBG Base Excess -3.2 L VBG Potassium 4.2 Sodium 139.0 142 Chloride 108.0 H 110 H Glucose 89 Lactate 1.4 FiO2 21.0 Potassium 4.5 Carbon Dioxide 18 L Anion Gap 19 BUN 15 Creatinine 0.8 Est GFR ( Amer) > 60 Est GFR (Non-Af Amer) > 60 Random Glucose 85 Calcium 9.3 Phosphorus 3.4 Magnesium 2.2 Total Bilirubin 0.6 AST 31 ALT < 6 L D Alkaline Phosphatase 88 Total Protein 8.8 H Albumin 4.5 Globulin 4.3 H Albumin/Globulin Ratio 1.1 Venous Blood Potassium 4.2 Attending/Attestation - Attestation I have personally seen and examined this patient.: Yes I have fully participated in the care of the patient.: Yes I have reviewed all pertinent clinical information: Yes Notes (Text): 07/27/18 16:10 32-year-old female who was admitted to psychiatry 2 days ago for mood disorder secondary to polysubstance abuse. Yesterday she had an GRAPE PICKER for breakthrough seizure as she has been compliant with her home medications, and had another episode today. She was given 2 mg of Ativan prior to the emergency department. She also had 2 episodes of syncope while she was on the floor. It is uncertain whether or not this is secondary to her medications. We will place her under observation on the floor obtain head CT, evaluate her electrolytes as well as CBC, echo, carotid Dopplers. Patient does have history of remote CVA as well as sickle cell anemia. Agree with findings and plan as above.
--- NOTE | 2018-07-27 14:41 | ED PDOC ---
HPI: Seizure Time Seen by Provider: 07/27/18 12:23 Chief Complaint (Nursing): Seizure Chief Complaint (Provider): Seizure History Per: Other (Hospitalist) History/Exam Limitations: clinical condition Recent Seizure Activity Began: Just Before Arrival Additional Complaint(s): 32 y/o female presented to the ED from the psychiatric floor at an CRITICAL CARE NURSE. As per Hospitalist, patient reportedly had a syncopal episode and seizure while being admitted to the psychiatric floor. Patient given ativan by the hospitalist and brought down to the ER for further evaluation. Patient appears mildly postictal, not answering questions but is alert. Patient will be admitted to the hospitalist. Hospitalist requesting Brain CT at this time. Keppra ordered from floor now changed to Depakote. PMD: No provider Past Medical History Reviewed: Historical Data, Nursing Documentation, Vital Signs Vital Signs: Last Vital Signs Temp Pulse 109 H 07/27/18 12:21 Resp 16 07/27/18 12:21 BP 108/69 07/27/18 12:21 Pulse Ox 98 07/27/18 12:26 - Medical History PMH: Anemia, Anxiety, Arthritis, Asthma, Back Problems, Bipolar Disorder, CAD, CVA (x 3, Protein C/S deficiency), Depression, Deep Vein Thrombosis, HTN, Hypercholesterolemia, Hyperlipidemia, Migraine, Schizophrenia, Seizures, Sickle Cell Disease, TIA, Chronic Pain Denies: Diabetes, Hepatitis, HIV, Chronic Kidney Disease, Sexually Transmitted Disease - Surgical History Surgical History: No Surg Hx - Family History Family History: States: [place] - Immunization History Hx Tetanus Toxoid Vaccination: No Hx Influenza Vaccination: No Hx Pneumococcal Vaccination: No - Home Medications Home Medications: Ambulatory Orders Medication Instructions Recorded Aspirin [Adult Aspirin] 81 mg PO DAILY 03/20/18 Apixaban [Eliquis] 5 mg PO BID 07/07/18 Pantoprazole [Protonix EC Tab] 40 mg PO DAILY 07/07/18 Divalproex [Depakote DR(*BID*)] 1,000 mg PO HS 30 Days #60 tcp 07/12/18 Divalproex [Depakote DR(*BID*)] 500 mg PO DAILY 30 Days #30 tcp 07/12/18 Gabapentin [Neurontin] 300 mg PO TID 30 Days #90 cap 07/12/18 QUEtiapine [Seroquel] 100 mg PO HS 30 Days #30 tab 07/12/18 Topiramate [Topamax] 100 mg PO BID 07/25/18 hydrOXYzine Pamoate [Vistaril] 50 mg PO TID 07/25/18 - Allergies Allergies/Adverse Reactions: Allergies Allergy/AdvReac Type Severity Reaction Status Date / Time ketorolac tromethamine Allergy Mild SWELLING Verified 07/27/18 12:29 [From Toradol] naproxen [From Naprosyn] Allergy Mild URTICARIA Verified 07/27/18 12:29 polyethylene glycol 3350 Allergy Mild RASH Verified 07/27/18 12:29 [From Miralax] shellfish derived Allergy Mild ANAPHYLAXIS Verified 07/27/18 12:29 mushroom Allergy ANAPHYLAXIS Verified 07/27/18 12:29 ibuprofen [From Motrin] AdvReac Mild vomiting Verified 07/27/18 12:29 blood PORK AdvReac DIARRHEA Verified 07/27/18 12:29 nguyen Allergy Severe RASH Uncoded 07/27/18 12:29 Review of Systems Review Of Systems: ROS cannot be obtained secondary to pt's inabilty to answer questions. (Patient being evaluated for Syncope and Seizures while being admitted to the psychiatric floor) Physical Exam - Reviewed Nursing Documentation Reviewed: Yes Vital Signs Reviewed: Yes - Physical Exam Appears: Positive for: No Acute Distress Head Exam: Positive for: ATRAUMATIC, NORMAL INSPECTION (no obvious trauma to the head), NORMOCEPHALIC Skin: Positive for: Normal Color Eye Exam: Positive for: Normal appearance Neck: Positive for: Normal, Painless ROM Cardiovascular/Chest: Positive for: Regular Rate, Rhythm. Negative for: Murmur Respiratory: Positive for: Normal Breath Sounds. Negative for: Respiratory Distress Gastrointestinal/Abdominal: Positive for: Normal Exam, Soft. Negative for: Tenderness Extremity: Positive for: Normal ROM Neurological/Psych: Positive for: Awake, Alert, line dancer II-XII, Other (mildly postictal ). Negative for: Motor/Sensory Deficits - Laboratory Results Result Diagrams: 07/28/18 05:14 07/28/18 05:14 Lab Results: pO2 56 mm/Hg (30-55) H 07/27/18 13:06 VBG pH 7.41 (7.32-7.43) 07/27/18 13:06 VBG pCO2 32 mmHg (40-60) L 07/27/18 13:06 VBG HCO3 22.1 mmol/L 07/27/18 13:06 VBG Total CO2 21.3 mmol/L (22-28) L 07/27/18 13:06 VBG O2 Sat (Calc) 93.2 % (40-65) H 07/27/18 13:06 VBG Base Excess -3.2 mmol/L (0.0-2.0) L 07/27/18 13:06 VBG Potassium 4.2 mmol/L (3.6-5.2) 07/27/18 13:06 Sodium 139.0 mmol/L (132-148) 07/27/18 13:06 Chloride 108.0 mmol/L (98-107) H 07/27/18 13:06 Glucose 89 mg/dL (65-105) 07/27/18 13:06 Lactate 1.4 mmol/L (0.7-2.1) 07/27/18 13:06 FiO2 21.0 % 07/27/18 13:06 - ECG O2 Sat by Pulse Oximetry: 98 (RA) Pulse Ox Interpretation: Normal Medical Decision Making Medical Decision Making: Time: 1305 A/P: Seizure vs. Syncope while in psychiatry -- Workup to be followed by Medicine team -- Will also follow labs and CT scan -- Patient to be admitted to the Telemetry unit under the Hospitalist Service -- VBG -- CMP -- Magnesium -- Phosphorus -- Prolactin -- CBC with Differentials -- Wei FELIZ (*BID*) 1000 mg PO ONCE -- Wei FELIZ (*BID*) 750 mg PO BID Time: 1423 Plan: -- CT Head w/o Contrast -- EKG -- ED Urine Scribe Attestation: Documented by Toni Carreon, acting as a scribe Errol Arauz MD. Provider Scribe Attestation: All medical record entries made by the Scribe were at my direction and personally dictated by me. I have reviewed the chart and agree that the record accurately reflects my personal performance of the history, physical exam, medical decision making, and the department course for this patient. I have also personally directed, reviewed, and agree with the discharge instructions and disposition. Disposition - Clinical Impression Clinical Impression: Generalized seizure - Disposition Disposition Time: 13:05 Condition: FAIR
[2018-07-27 15:55] LABS: ALB/GLOB RATIO 1.1 (1.0-2.1); ALBUMIN 4.5 g/dL (3.5-5.0); ALT/SGPT < 6 U/L (9-52); AST/SGOT 31 U/L (14-36); BLOOD UREA NITROGEN 15 mg/dl (7-17); CALCIUM 9.3 mg/dL (8.4-10.2); GFR NON-AFRICAN AMERICAN > 60
--- NOTE | 2018-07-27 16:06 | CT ---
Date of service: 07/27/2018 PROCEDURE: CT HEAD WITHOUT CONTRAST. HISTORY: seizure episode COMPARISON: CT head dated 07/25/2018 TECHNIQUE: Axial computed tomography images were obtained through the head/brain without intravenous contrast. Radiation dose: Total exam DLP = 847.09 mGy-cm. This CT exam was performed using one or more of the following dose reduction techniques: Automated exposure control, adjustment of the mA and/or kV according to patient size, and/or use of iterative reconstruction technique. FINDINGS: HEMORRHAGE: No intracranial hemorrhage. BRAIN: No mass effect or edema. No atrophy or chronic microvascular ischemic changes. VENTRICLES: Unremarkable. No hydrocephalus. CALVARIUM: Unremarkable. PARANASAL SINUSES: Unremarkable as visualized. No significant inflammatory changes. MASTOID AIR CELLS: Unremarkable as visualized. No inflammatory changes. OTHER FINDINGS: None. IMPRESSION: No acute intracranial pathology.
--- NOTE | 2018-07-27 16:33 | US ---
Date of service: 07/27/2018 PROCEDURE: Duplex ultrasound of the carotid and vertebral arteries. HISTORY: syncope COMPARISON: None available. TECHNIQUE: Grayscale and duplex Doppler evaluation of the cervical carotid and vertebral arteries were performed. The common carotid, carotid bifurcations and cervical ICA and proximal ECA were evaluated. The vertebral arteries were evaluated for gross patency and direction. FINDINGS: RIGHT CAROTID ARTERIES: Common Carotid Artery: Normal. Maximal flow velocity of 108.1 cm/s. Carotid Bifurcation: Normal. Internal Carotid Artery:Normal. Maximal flow velocity of 86.0 cm/s. External Carotid Artery (proximal branches): Normal. Maximal flow velocity of 75.5 cm/s. ICA/CCA Ratio: 0.8 LEFT CAROTID ARTERIES: Common Carotid Artery: Normal. Maximal flow velocity of 88.7 cm/s. Carotid Bifurcation: Normal. Internal Carotid Artery:Normal. Maximal flow velocity of 70.2 cm/s. External Carotid Artery (proximal branches): Normal. Maximal flow velocity of 56.2 cm/s. ICA/CCA Ratio: 0.8 VERTEBRAL ARTERIES: Right Vertebral Artery: Patent. Antegrade flow. Left Vertebral Artery: Patent. Antegrade flow. OTHER FINDINGS: No atherosclerotic calcification present IMPRESSION: Per NASCET criteria, no stenosis of the internal carotid arteries, bilaterally.
[2018-07-27] MEDS: Divalproex 250 mg DR(BID formulation) PO SCH (20:58)
[2018-07-28 06:58] LABS: BASO # 0.1 K/uL (0.0-0.2); BASO % 1.3 % (0.0-2.0); EOS # 0.2 K/uL (0.0-0.7); EOS % 2.3 % (0.0-4.0); LYMPH % 36.2 % (20.0-40.0); MEAN CELL VOLUME 79.3 fl (81.0-99.0); MEAN CORPUSCULAR HEMOGLOBIN 25.8 pg (27.0-31.0); MEAN CORPUSCULAR HGB CONC 32.5 g/dL (33.0-37.0); MEAN PLATELET VOLUME 8.3 fl (7.2-11.7); MONO # 0.7 K/uL (0.0-0.8); MONO % 8.9 % (0.0-10.0); NEUT # 4.3 K/uL (1.8-7.0); NEUT % 51.3 % (50.0-75.0); NRBC % 0.1 % (0.0-0.0); RBC 5.82 Mil/uL (3.80-5.20); RED CELL DISTRIBUTION WIDTH 16.5 % (11.5-14.5); WHITE BLOOD COUNT 8.4 K/uL (4.8-10.8)
[2018-07-28 07:07] LABS: ALB/GLOB RATIO 1.1 (1.0-2.1); ALBUMIN 4.3 g/dL (3.5-5.0); ALT/SGPT 15 U/L (9-52); AST/SGOT 21 U/L (14-36); BLOOD UREA NITROGEN 14 mg/dl (7-17); CALCIUM 8.9 mg/dL (8.4-10.2); GFR NON-AFRICAN AMERICAN > 60
[2018-07-28] MEDS: Pantoprazole 40 mg EC Tab PO SCH (08:40)
[2018-07-28] MEDS: Divalproex 250 mg DR(BID formulation) PO SCH ×2 (08:42→18:32)
--- NOTE | 2018-07-28 09:28 | CP.PCM.PN ---
<Marilee Caldwell - Last Filed: 07/28/18 11:57> Subjective - Date & Time of Evaluation Date of Evaluation: 07/28/18 Time of Evaluation: 09:26 - Subjective Subjective: Patient seen and examined this morning at bedside. Patient was asleep, breathing comfortably without any signs of distress. Denies f/c/n/v/diarrhea, cp or sob. Objective - Vital Signs/Intake and Output Vital Signs (last 24 hours): Temp Pulse Resp BP Pulse Ox 98.4 F 83 18 95/61 L 99 07/28/18 07:42 07/28/18 07:42 07/28/18 07:42 07/28/18 07:42 07/28/18 07:42 - Medications Medications: Current Medications Apixaban (Eliquis) 5 mg PO BID [facility]; Protocol Last Admin: 07/28/18 08:38 Dose: 5 mg Aspirin (Ecotrin) 81 mg PO DAILY [facility] Last Admin: 07/28/18 08:38 Dose: 81 mg Atorvastatin Calcium (Lipitor) 40 mg PO [facility] Last Admin: 07/27/18 21:00 Dose: 40 mg Divalproex Sodium (Depakote Dr(*Bid*)) 750 mg PO BID [facility] Last Admin: 07/28/18 08:42 Dose: 750 mg Gabapentin (Neurontin) 300 mg PO TID [facility] Last Admin: 07/28/18 08:39 Dose: 300 mg Hydroxyzine Pamoate (Vistaril) 50 mg PO TID [facility] Last Admin: 07/28/18 08:39 Dose: 50 mg Pantoprazole Sodium (Protonix Ec Tab) 40 mg PO DAILY [facility] Last Admin: 07/28/18 08:40 Dose: 40 mg Quetiapine Fumarate (Seroquel) 100 mg PO HS [facility] Last Admin: 07/27/18 21:00 Dose: 100 mg Topiramate (Topamax) 100 mg PO BID [facility] Last Admin: 07/28/18 08:40 Dose: 100 mg - Labs Labs: 07/28/18 05:14 07/28/18 05:14 - Constitutional Appears: Non-toxic - Head Exam Head Exam: ATRAUMATIC - Eye Exam Pupil Exam: PERRL - ENT Exam ENT Exam: Mucous Membranes Moist - Respiratory Exam Respiratory Exam: Clear to Ausculation Bilateral - Cardiovascular Exam Cardiovascular Exam: REGULAR RHYTHM, +S1, +S2 - GI/Abdominal Exam GI & Abdominal Exam: Soft, Normal Bowel Sounds. absent: Rigid, Tenderness - Extremities Exam Extremities Exam: absent: Calf Tenderness - Neurological Exam Additional comments: lethargic, a & o x 3 - Skin Skin Exam: Dry Assessment and Plan - Assessment and Plan (Free Text) Assessment: A/P: 32 year old Female admitted to [facility] for evaluation and management of syncope and seizure disorder. 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 Seizure disorder -s/p 1 gm keppra and 1 gm depakote in ED -Start depakote 750 mg po bid -Neurology consult: Dr. Manzanares, f/u rec - head CT negative for acute pathology -f/u AM labs Hx multiple syncope -stable vitals -ECG: NSR @[address]/T wave changes -f/u head CT negative for acute pathology carotid duplex US- negative for stenosis -f/u echo -f/u AM labs Bipolar depression -resume Seroquel 100 mg po hs -FU Psychiatry recommendations Multiple substance use disorders -Utox on 07/25/18 positive for Opiates, barbiturates and cocaine -Monitor symptoms -Hold Ativan for now -c/w Gabapentin 300 mg po TID Migraine headache -c/w Topamax 100 mg po BID Hx Protein C & S deficiency and CVA -C/W aspirin and Eliquis -c/w Atorvastatin 40 mg po hs DVT prophylaxis -On Eliquis 5 mg po bid <Dasia Kenney - Last Filed: 07/28/18 14:12> Objective - Vital Signs/Intake and Output Vital Signs (last 24 hours): Temp Pulse Resp BP Pulse Ox 98.3 F 92 H 18 122/78 99 07/28/18 11:40 07/28/18 11:40 07/28/18 11:40 07/28/18 11:40 07/28/18 11:40 - Medications Medications: Current Medications Apixaban (Eliquis) 5 mg PO BID [facility]; Protocol Last Admin: 07/28/18 08:38 Dose: 5 mg Aspirin (Ecotrin) 81 mg PO DAILY [facility] Last Admin: 07/28/18 08:38 Dose: 81 mg Atorvastatin Calcium (Lipitor) 40 mg PO [facility] Last Admin: 07/27/18 21:00 Dose: 40 mg Divalproex Sodium (Depakote Dr(*Bid*)) 750 mg PO BID [facility] Last Admin: 07/28/18 08:42 Dose: 750 mg Gabapentin (Neurontin) 300 mg PO TID [facility] Last Admin: 07/28/18 08:39 Dose: 300 mg Hydroxyzine Pamoate (Vistaril) 50 mg PO TID [facility] Last Admin: 07/28/18 08:39 Dose: 50 mg Pantoprazole Sodium (Protonix Ec Tab) 40 mg PO DAILY [facility] Last Admin: 07/28/18 08:40 Dose: 40 mg Quetiapine Fumarate (Seroquel) 100 mg PO [facility] Last Admin: 07/27/18 21:00 Dose: 100 mg Topiramate (Topamax) 100 mg PO BID [facility] Last Admin: 07/28/18 08:40 Dose: 100 mg - Labs Labs: 07/28/18 05:14 07/28/18 05:14 Attending/Attestation - Attestation I have personally seen and examined this patient.: Yes I have fully participated in the care of the patient.: Yes I have reviewed all pertinent clinical information, including history, physical exam and plan: Yes Notes (Text): 07/28/18 14:12 Patient has had no further episodes of seizures. She is clinically comfortable and doing well this morning. Neurology consult appreciated, EEG has been ordered. Psychiatry consult also called and awaiting evaluation.
--- NOTE | 2018-07-28 12:18 | CP.PCM.CON ---
History of Present Illness - History of Present Illness History of Present Illness: Neurology consult dictated. Miss Pete appears to have nonepileptic seizures and will need prolonged Video eeg. we will assess after we have captured her events. Continue depakote until then. Thank you Dr. Manzanares Neurology Past Patient History - Infectious Disease Hx of Infectious Diseases: None - Tetanus Immunizations Tetanus Immunization: Unknown - Past Medical History & Family History Past Medical History?: Yes - Past Social History Smoking Status: Current Some Days Smoker - CARDIAC Hx Hypercholesterolemia: Yes Hx Hypertension: Yes - PULMONARY Hx Asthma: Yes - NEUROLOGICAL Hx Migraine: Yes Hx Seizures: Yes Hx Transient Ischemic Attacks (TIA): Yes - HEENT Hx HEENT Problems: No Other/Comment: wears glasses - RENAL Hx Chronic Kidney Disease: No - ENDOCRINE/METABOLIC Hx Endocrine Disorders: No - HEMATOLOGICAL/ONCOLOGICAL Hx Anemia: Yes Hx Human Immunodeficiency Virus (HIV): No Hx Sickle Cell Disease: Yes - INTEGUMENTARY Hx Dermatological Problems: No - MUSCULOSKELETAL/RHEUMATOLOGICAL Hx Falls: Yes - GASTROINTESTINAL Hx Gastrointestinal Disorders: Yes Hx Gastroesophageal Reflux: Yes - GENITOURINARY/GYNECOLOGICAL Hx Sexually Transmitted Disorders: No - PSYCHIATRIC Hx Substance Use: Yes (herroine) - SURGICAL HISTORY Hx Surgeries: Yes (L ovarian cyst) Other/Comment: cyst removed from left ovary. I & D L Leg abscess - ANESTHESIA Hx Anesthesia: Yes Hx Anesthesia Reactions: Yes (states "couldn't breathe") Meds Allergies/Adverse Reactions: Allergies Allergy/AdvReac Type Severity Reaction Status Date / Time ketorolac tromethamine Allergy Mild SWELLING Verified 07/27/18 12:29 [From Toradol] naproxen [From Naprosyn] Allergy Mild URTICARIA Verified 07/27/18 12:29 polyethylene glycol 3350 Allergy Mild RASH Verified 07/27/18 12:29 [From Miralax] shellfish derived Allergy Mild ANAPHYLAXIS Verified 07/27/18 12:29 mushroom Allergy ANAPHYLAXIS Verified 07/27/18 12:29 ibuprofen [From Motrin] AdvReac Mild vomiting Verified 07/27/18 12:29 blood PORK AdvReac DIARRHEA Verified 07/27/18 12:29 nguyen Allergy Severe RASH Uncoded 07/27/18 12:29 - Medications Medications: Current Medications Apixaban (Eliquis) 5 mg PO BID [facility]; Protocol Last Admin: 07/28/18 08:38 Dose: 5 mg Aspirin (Ecotrin) 81 mg PO DAILY [facility] Last Admin: 07/28/18 08:38 Dose: 81 mg Atorvastatin Calcium (Lipitor) 40 mg PO HS [facility] Last Admin: 07/27/18 21:00 Dose: 40 mg Divalproex Sodium (Depakote Dr(*Bid*)) 750 mg PO BID [facility] Last Admin: 07/28/18 08:42 Dose: 750 mg Gabapentin (Neurontin) 300 mg PO TID [facility] Last Admin: 07/28/18 08:39 Dose: 300 mg Hydroxyzine Pamoate (Vistaril) 50 mg PO TID [facility] Last Admin: 07/28/18 08:39 Dose: 50 mg Pantoprazole Sodium (Protonix Ec Tab) 40 mg PO DAILY [facility] Last Admin: 07/28/18 08:40 Dose: 40 mg Quetiapine Fumarate (Seroquel) 100 mg PO HS [facility] Last Admin: 07/27/18 21:00 Dose: 100 mg Topiramate (Topamax) 100 mg PO BID [facility] Last Admin: 07/28/18 08:40 Dose: 100 mg Results - Vital Signs Recent Vital Signs: Last Vital Signs Temp 98.3 F 07/28/18 11:40 Pulse 92 H 07/28/18 11:40 Resp 18 07/28/18 11:40 BP 122/78 07/28/18 11:40 Pulse Ox 99 07/28/18 11:40 - Labs Result Diagrams: 07/28/18 05:14 07/28/18 05:14 Labs: Laboratory Results - last 24 hr 07/27/18 07/27/18 07/27/18 13:06 14:08 14:08 WBC 9.7 RBC 6.15 H Hgb 16.1 H D Hct 49.3 H MCV 80.2 L MCH 26.1 L MCHC 32.6 L RDW 16.7 H Plt Count 325 MPV 8.1 Neut % (Auto) 54.6 Lymph % (Auto) 34.6 [place] % (Auto) 8.2 Eos % (Auto) 1.5 Baso % (Auto) 1.1 Neut # (Auto) 5.3 Lymph # (Auto) 3.3 [place] # (Auto) 0.8 Eos # (Auto) 0.1 Baso # (Auto) 0.1 pO2 56 H VBG pH 7.41 VBG pCO2 32 L VBG HCO3 22.1 VBG Total CO2 21.3 L VBG O2 Sat (Calc) 93.2 H VBG Base Excess -3.2 L VBG Potassium 4.2 Sodium 139.0 142 Chloride 108.0 H 110 H Glucose 89 Lactate 1.4 FiO2 21.0 Potassium 4.5 Carbon Dioxide 18 L Anion Gap 19 BUN 15 Creatinine 0.8 Est GFR ( Amer) > 60 Est GFR (Non-Af Amer) > 60 Random Glucose 85 Calcium 9.3 Phosphorus 3.4 Magnesium 2.2 Total Bilirubin 0.6 AST 31 ALT < 6 L D Alkaline Phosphatase 88 Total Protein 8.8 H Albumin 4.5 Globulin 4.3 H Albumin/Globulin Ratio 1.1 Venous Blood Potassium 4.2 07/28/18 07/28/18 05:14 05:14 WBC 8.4 RBC 5.82 H Hgb 15.0 Hct 46.2 MCV 79.3 L MCH 25.8 L MCHC 32.5 L RDW 16.5 H Plt Count 302 MPV 8.3 Neut % (Auto) 51.3 Lymph % (Auto) 36.2 [place] % (Auto) 8.9 Eos % (Auto) 2.3 Baso % (Auto) 1.3 Neut # (Auto) 4.3 Lymph # (Auto) 3.0 [place] # (Auto) 0.7 Eos # (Auto) 0.2 Baso # (Auto) 0.1 pO2 VBG pH VBG pCO2 VBG HCO3 VBG Total CO2 VBG O2 Sat (Calc) VBG Base Excess VBG Potassium Sodium 140 Chloride 108 H Glucose Lactate FiO2 Potassium 3.7 Carbon Dioxide 19 L Anion Gap 17 BUN 14 Creatinine 0.9 Est GFR ( Amer) > 60 Est GFR (Non-Af Amer) > 60 Random Glucose 106 H Calcium 8.9 Phosphorus 4.9 H Magnesium 2.0 Total Bilirubin 0.3 AST 21 ALT 15 Alkaline Phosphatase 80 Total Protein 8.0 Albumin 4.3 Globulin 3.7 Albumin/Globulin Ratio 1.1 Venous Blood Potassium
--- NOTE | 2018-07-28 16:03 | CP.PCM.CON ---
History of Present Illness - History of Present Illness History of Present Illness: This is a 32 yr old female with h/o polysubstanse abuse and seizures of unspecific. origin and was witnessed by me having grand mal seizures and transfered to medicine for stabilization and now psych consult requested by attending because the neurology is suspecting pseudo seizures .pt has been evaluated and c/o feeling very tired and lethargic and has slurred speech and is afraid of passing out again.pt claims that keppra is not helping her and only thing helping with seizure was phenobarb.pt denies any depression and denies angelica cidal ideation.pt remains confused not sure about the date and does not remember how did she get into medical unit and does not recall having grand mal seizure and no all she remembers that she was lying on stretcher .no overt psychosis .pt remains with poor insight regarding her polysubstance abuse and minimise her abuse of cocaine and opiates. Past Patient History - Infectious Disease Hx of Infectious Diseases: None - Tetanus Immunizations Tetanus Immunization: Unknown - Past Medical History & Family History Past Medical History?: Yes - Past Social History Smoking Status: Current Some Days Smoker - CARDIAC Hx Hypercholesterolemia: Yes Hx Hypertension: Yes - PULMONARY Hx Asthma: Yes - NEUROLOGICAL Hx Migraine: Yes Hx Seizures: Yes Hx Transient Ischemic Attacks (TIA): Yes - HEENT Hx HEENT Problems: No Other/Comment: wears glasses - RENAL Hx Chronic Kidney Disease: No - ENDOCRINE/METABOLIC Hx Endocrine Disorders: No - HEMATOLOGICAL/ONCOLOGICAL Hx Anemia: Yes Hx Human Immunodeficiency Virus (HIV): No Hx Sickle Cell Disease: Yes - INTEGUMENTARY Hx Dermatological Problems: No - MUSCULOSKELETAL/RHEUMATOLOGICAL Hx Falls: Yes - GASTROINTESTINAL Hx Gastrointestinal Disorders: Yes Hx Gastroesophageal Reflux: Yes - GENITOURINARY/GYNECOLOGICAL Hx Sexually Transmitted Disorders: No - PSYCHIATRIC Hx Substance Use: Yes (herroine) - SURGICAL HISTORY Hx Surgeries: Yes (L ovarian cyst) Other/Comment: cyst removed from left ovary. I & D L Leg abscess - ANESTHESIA Hx Anesthesia: Yes Hx Anesthesia Reactions: Yes (states "couldn't breathe") Meds Allergies/Adverse Reactions: Allergies Allergy/AdvReac Type Severity Reaction Status Date / Time ketorolac tromethamine Allergy Mild SWELLING Verified 07/27/18 12:29 [From Toradol] naproxen [From Naprosyn] Allergy Mild URTICARIA Verified 07/27/18 12:29 polyethylene glycol 3350 Allergy Mild RASH Verified 07/27/18 12:29 [From Miralax] shellfish derived Allergy Mild ANAPHYLAXIS Verified 07/27/18 12:29 mushroom Allergy ANAPHYLAXIS Verified 07/27/18 12:29 ibuprofen [From Motrin] AdvReac Mild vomiting Verified 07/27/18 12:29 blood PORK AdvReac DIARRHEA Verified 07/27/18 12:29 nguyen Allergy Severe RASH Uncoded 07/27/18 12:29 - Medications Medications: Current Medications Apixaban (Eliquis) 5 mg PO BID [facility]; Protocol Last Admin: 07/28/18 08:38 Dose: 5 mg Aspirin (Ecotrin) 81 mg PO DAILY [facility] Last Admin: 07/28/18 08:38 Dose: 81 mg Atorvastatin Calcium (Lipitor) 40 mg PO [facility] Last Admin: 07/27/18 21:00 Dose: 40 mg Divalproex Sodium (Depakote Dr(*Bid*)) 750 mg PO BID [facility] Last Admin: 07/28/18 08:42 Dose: 750 mg Gabapentin (Neurontin) 300 mg PO TID [facility] Last Admin: 07/28/18 14:00 Dose: 300 mg Hydroxyzine Pamoate (Vistaril) 50 mg PO TID [facility] Last Admin: 07/28/18 14:00 Dose: 50 mg Pantoprazole Sodium (Protonix Ec Tab) 40 mg PO DAILY [facility] Last Admin: 07/28/18 08:40 Dose: 40 mg Quetiapine Fumarate (Seroquel) 100 mg PO [facility] Last Admin: 07/27/18 21:00 Dose: 100 mg Topiramate (Topamax) 100 mg PO BID [facility] Last Admin: 07/28/18 08:40 Dose: 100 mg Physical Exam - Psychiatric Exam Psychiatric exam: Anxious, Flat Affect Additional comments: pt is alert but waxing and waning of mental status with being lethargic with psychomotor retardation at times with slurred speech.Pt has anxious mood and affect is blunted.pt denies suicidal ideation.no overt psychosis .poor insight and poor judgement . Results - Vital Signs Recent Vital Signs: Last Vital Signs Temp 98.3 F 07/28/18 11:40 Pulse 92 H 07/28/18 11:40 Resp 18 07/28/18 11:40 BP 122/78 07/28/18 11:40 Pulse Ox 99 07/28/18 11:40 - Labs Result Diagrams: 07/28/18 05:14 07/28/18 05:14 Labs: Laboratory Results - last 24 hr 07/28/18 07/28/18 05:14 05:14 WBC 8.4 RBC 5.82 H Hgb 15.0 Hct 46.2 MCV 79.3 L MCH 25.8 L MCHC 32.5 L RDW 16.5 H Plt Count 302 MPV 8.3 Neut % (Auto) 51.3 Lymph % (Auto) 36.2 [place] % (Auto) 8.9 Eos % (Auto) 2.3 Baso % (Auto) 1.3 Neut # (Auto) 4.3 Lymph # (Auto) 3.0 [place] # (Auto) 0.7 Eos # (Auto) 0.2 Baso # (Auto) 0.1 Sodium 140 Potassium 3.7 Chloride 108 H Carbon Dioxide 19 L Anion Gap 17 BUN 14 Creatinine 0.9 Est GFR ( Amer) > 60 Est GFR (Non-Af Amer) > 60 Random Glucose 106 H Calcium 8.9 Phosphorus 4.9 H Magnesium 2.0 Total Bilirubin 0.3 AST 21 ALT 15 Alkaline Phosphatase 80 Total Protein 8.0 Albumin 4.3 Globulin 3.7 Albumin/Globulin Ratio 1.1 Assessment & Plan - Assessment and Plan (Free Text) Assessment: 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 continue to medically stabilize patient with depakote and topamax and keppra and observe for seizures video EEG and ct scan of head and follow up with neurology call psychiatry for follow up when pt is medically stabilized adequately .
[2018-07-28] MEDS ORDERED: Naloxone 0.4 mg/ml Inj (Adult) ONE (17:26)
[2018-07-28] MEDS ORDERED: Naloxone 0.4 mg/ml Inj (Adult) IVP STA ×2 (17:26→17:27)
--- NOTE | 2018-07-28 17:37 | PCM.RRT ---
<Marilee Caldwell - Last Filed: 07/28/18 18:07> - Constitutional Additional Comments: unresponsiveness to verbal commands or sternal rub - Head Head Exam: ATRAUMATIC - Respiratory Exam Respiratory Exam: absent: Respiratory Distress Additional comments: decreased respiratory rate, no wheeze - Cardiovascular Exam Cardiovascular Exam: REGULAR RHYTHM, +S1, +S2 - GI/Abdominal Exam GI & Abdominal Exam: Soft, Normal Bowel Sounds. absent: Guarding, Rigid, Tenderness - Neurological Exam Additional exam: unresponsive - Extremities Exam Extremities Exam: absent: Calf Tenderness Plan - Assessment of Findings&Treatment Plan ICT SALES ASSISTANT called by: nurse ICT SALES ASSISTANT time : 5:27pm Response time: 1 minute ICT SALES ASSISTANT end time: 5:41pm Dr. Kenney ICT SALES ASSISTANT called for 32 y/o F because of unresponsiveness. Patient has a hx of polysubstance abuse and was admitted to [facility] for evaluation and management of syncope and seizure disorder. As per polysubstance amongnurse, patient was unresponsiveness to verbal commands. During ICT SALES ASSISTANT, patient was unresponsive to sternal rub. Initial VS: pulse-99%, P-86bpm, BP-167/82, RR- 14 Accucheck: 139 Intervention: urine tox, straight cath, head CT w/o contrast, fentanyl level fu, 1:1 -Narcan .4mg given: patient was not responsive to first dose; patient was still not responsive to sternal rub -2nd dose of narcan .4mg was given; patient was responsive to 2nd dose with improvement with respiratory rate-16 -After another 2-3 minutes, patient was awake. -Drugs were found in patient's possession, and placed in a specimen bag. -Patient stated she took drugs, and would not reveal the name. -Security called. 32 y/o F because of unresponsiveness. Patient has a hx of polysubstance abuse and was admitted to [facility] for evaluation and management of syncope and seizure disorder. -Patient became responsive after total of 0.8mg of narcan given -Drugs found; security called; on 1:1 now -FU head CT w/o contrast, urine tox, fentanyl level fu Case discussed with Dr. Kenney -Marilee June, [id number] <Dasia Kenney - Last Filed: 07/30/18 07:39> ICT SALES ASSISTANT Nurse Assessment - Vital Signs Vital Signs: Rapid Response Vital Sign Blood Pressure 141/80 Pulse Rate 86 Respiratory Rate 11 Temperature 98.5 F Oxygen Saturation 100 - Vital Signs at end of ICT SALES ASSISTANT Vital Signs at end of ICT SALES ASSISTANT: Rapid Response End Vital Sign Blood Pressure 137/90 Pulse Rate 94 Respiratory Rate 17 Temperature 98.5 F O2 Sat by Pulse Oximetry 100 Attending/Attestation - Attestation I have personally seen and examined this patient.: Yes I have fully participated in the care of the patient.: Yes I have reviewed all pertinent clinical information, including history, physical exam and plan: Yes Notes (Text): 07/30/18 07:38 ICT SALES ASSISTANT called for patient unresponsiveness. Patient had been recently visited by her boyfriend 20 minutes ago. Vitals stable. 2 doses of Narcan given with good response. Heroin, crack pipe, with weed pain found among belongings. Agree with findings and plan as above.
[2018-07-28 19:03] LABS: BARBITURATES, UR POSITIVE (NEGATIVE); BENZODIAZEPINES, UR POSITIVE (NEGATIVE); OPIATES, UR POSITIVE (NEGATIVE); PHENCYCLIDINE, UR NEGATIVE (NEGATIVE)
--- NOTE | 2018-07-28 21:25 | CARD ---
APPROVED REPORT Date of service: 07/27/2018 EKG Measurement Heart [id number] <Conclusion> Normal sinus rhythm Normal ECG
[2018-07-28] MEDS ORDERED: Naloxone 0.4 mg/ml Inj (Adult) IVP ONE (23:43)
[2018-07-29] MEDS: Bacitracin OINT 15GM TOP SCH ×3 (00:12→10:51)
[2018-07-29] MEDS: Petrolatum UD PAK TOP SCH ×2 (00:12→10:46)
--- NOTE | 2018-07-29 00:14 | PCM.RRT ---
INVESTIGATIVE RESEARCH SPECIALIST Nurse Assessment - Situation Location: [address] [place] [address] Room Number: 402-1 INVESTIGATIVE RESEARCH SPECIALIST Reason for Call: Change in Mental Status INVESTIGATIVE RESEARCH SPECIALIST Called By: RN - IV IV Inserted during INVESTIGATIVE RESEARCH SPECIALIST?: No - Respiratory Oxygen Delivery Method: Nasal Cannula Received Nebulizer Treatments: No Was the Patient Ventilated with Bag/Mask 100% O2?: No Secretions Suctioned?: No Was the Patient Intubated?: No Was the Patient Placed on a Ventilator?: No - Medication Medications Administered During INVESTIGATIVE RESEARCH SPECIALIST: Narcan 0.4mg IV times two - Diagnostic Test Ordered EKG: No Chest X-Ray: No CT Scan: No - Stat Labs Ordered INVESTIGATIVE RESEARCH SPECIALIST Other Labs Ordered: Urine tox screen CPR started during INVESTIGATIVE RESEARCH SPECIALIST?: No - Time INVESTIGATIVE RESEARCH SPECIALIST Ended Time INVESTIGATIVE RESEARCH SPECIALIST Ended: 18:00 - Recommendations INVESTIGATIVE RESEARCH SPECIALIST Level of Care Recommendations: Remain in current setting I.Reason for INVESTIGATIVE RESEARCH SPECIALIST - A) Acute Change in Patient: (Select all that apply): Acute change in mental status Subjective: INVESTIGATIVE RESEARCH SPECIALIST was called for 32 y/o F after she passed out on the floor. Upon arrival patient was on floor, unresponsive, good pulses, minimum responsive to sternal rubs. VS: 144/70, HR 90s, Spo2 100% on 2L NC, BS: 130. On physical exam, pupils, equal b/l and reactive to lights, no pinpoint pupils. Patient has no IV, patient become responsive, alert, awake and oriented in 5 mins. Patient was 1:1 and did not hit her head (CT head was ordered this afternon after INVESTIGATIVE RESEARCH SPECIALIST but patient refused). Patient was c/o nausea and stomach aches, STAT PO Pepcid and Zofran given to the patient. Case discussed with Dr. Hill - Constitutional Additional Comments: unresponsiveness to verbal commands, minimum responsive to sternal rub - Head Head Exam: NORMAL INSPECTION, NORMOCEPHALIC - Eyes Eye Exam: PERRL - Respiratory Exam Respiratory Exam: Clear to Ausculation Bilateral, NORMAL BREATHING PATTERN - Cardiovascular Exam Cardiovascular Exam: REGULAR RHYTHM, +S1, +S2 - GI/Abdominal Exam GI & Abdominal Exam: Soft, Normal Bowel Sounds. absent: Tenderness - Neurological Exam Additional exam: unresponsiveness to verbal commands, minimum responsive to sternal rub Plan - Assessment of Findings&Treatment Plan 32 y/o F because of unresponsiveness. Patient has a hx of polysubstance abuse and was admitted to [facility] for evaluation and management of syncope and seizure disorder. - STAT Pepcid and Zofran given - Give tylenol for pain/headache - C/w 1:[address] Hill
[2018-07-29 01:02] VITALS: O2SAT 100
[2018-07-29 08:56] VITALS: BP 118/73; RESP 20; TEMP 97.6
[2018-07-29] MEDS ORDERED: Famotidine 40 MG/5 ML PO SCH (09:00)
--- NOTE | 2018-07-29 09:03 | CON ---
DATE: 07/27/2018 NEUROLOGY CONSULTATION Consult called by Dr. Dasia Kenney and Dr. Alyssa Arauz. HISTORY OF PRESENT ILLNESS: The patient is a 32-year-old woman who presented to the ER from the psych floor after an TECHNOLOGY CONSULTANT the patient had a syncopal episode of seizure being admitted to psych floor. He was given Ativan right from the ER for further evaluation. In the ER, the patient appeared postictal on questioning to staff . The patient apparently had several shaking episodes after which she was verbally confused. CT of the head was done, which was normal and today that the patient is on [address] [place]. On further questioning, the patient states that she has had epilepsy since the age of 11. There is a family history of epilepsy. I have not witnessed a seizure, but I have noted per staff that they are different types of varying seizure semiologies and there is sometimes postictal phase, though sometimes that is not. MEDICATIONS: She is on the following medications: Eliquis, aspirin, Lipitor, Depakote 750 mg twice a day, gabapentin, Vistaril, Protonix, Seroquel, Topamax 100 mg p.o. b.i.d. presumably for migraines. LABORATORY DATA: There is no record of the past video EEG or standard EEG. White count is 8.4, hemoglobin 15 and hematocrit 31.2. Chemistry: Sodium 140, potassium 3.7, chloride 108, bicarbonate 19, glucose 106, phosphorus 4.9, AST is 31, ALT is less than 6. Toxicology screen is not available. MRI of the brain has not been done. PHYSICAL EXAMINATION: GENERAL: On exam, the patient is alert and oriented x2. VITAL SIGNS: Vital signs are within normal limits. Blood pressure was low 95/61. HEENT: Pupils equal, round, and reactive to light. Cranial nerves II through XII normal. EOMI. Motor tone and strength are 5/5. Sensory is intact to fine touch, pin, position and vibration sense. Gait is normal. There is no dysmetria. The only thing abnormal about her exam is that her speech is little bit slow, that is appropriate. IMPRESSION: This is a 32-year-old woman who may have nonepileptic, anaphylactic seizures. PLAN: 1. We will need to have video EEG 24 hours to confirm or discuss these events. Plan video electroencephalogram. 2. Continue all medications. 3. Our team will follow. Thank you for this interesting consult. John Manzanares MD
[2018-07-29] MEDS: Divalproex 250 mg DR(BID formulation) PO SCH (10:48)
[2018-07-29] MEDS: Pantoprazole 40 mg EC Tab PO SCH (10:49)
--- NOTE | 2018-07-29 11:31 | CP.PCM.PN ---
Subjective - Date & Time of Evaluation Date of Evaluation: 07/29/18 Time of Evaluation: 11:29 - Subjective Subjective: Neuro Follow-Up Note: Ms. Tacho Pete was evaluated this morning at bedside. 1:1 present. Attempted to discuss pt's breakthrough seizure with her and complete a follow up interview/exam, however, pt refused. Pt repeatedly asking me if she can have her heroin back as well as her drug paraphernalia. Discussed with pt checking Valproic acid level and she refused. Pt became verbally distraught and agitated while I was in the room. Events that transpired over the weekend reviewed and noted. Exam is limited and ROS unobtainable due to pt's behavior. Objective - Vital Signs/Intake and Output Vital Signs (last 24 hours): Temp Pulse Resp BP Pulse Ox 97.6 F 100 H 20 118/73 100 07/29/18 08:55 07/29/18 08:55 07/29/18 08:55 07/29/18 08:55 07/29/18 08:55 - Medications Medications: Current Medications Apixaban (Eliquis) 5 mg PO BID [facility]; Protocol Last Admin: 07/29/18 10:49 Dose: 5 mg Aspirin (Ecotrin) 81 mg PO DAILY [facility] Last Admin: 07/29/18 10:48 Dose: 81 mg Atorvastatin Calcium (Lipitor) 40 mg PO HS [facility] Last Admin: 07/28/18 22:16 Dose: 40 mg Bacitracin (Bacitracin Oint) 1 applic TOP TID [facility] Last Admin: 07/29/18 10:51 Dose: Not Given Divalproex Sodium ([place](*Bid*)) 750 mg PO BID [facility] Last Admin: 07/29/18 10:48 Dose: 750 mg Emollient Ointment (Vaseline Oint) 1 pkt TOP BID [facility] Last Admin: 07/29/18 10:46 Dose: 1 pkt Famotidine (Pepcid) 40 mg PO ONCE ONE Stop: 07/29/18 23:59 Last Admin: 07/29/18 00:11 Dose: 40 mg Gabapentin (Neurontin) 300 mg PO TID [facility] Last Admin: 07/29/18 10:49 Dose: 300 mg Hydroxyzine Pamoate (Vistaril) 50 mg PO TID [facility] Last Admin: 07/29/18 10:50 Dose: 50 mg Pantoprazole Sodium (Protonix Ec Tab) 40 mg PO DAILY [facility] Last Admin: 07/29/18 10:49 Dose: 40 mg Topiramate (Topamax) 100 mg PO BID [facility] Last Admin: 07/29/18 10:50 Dose: 100 mg - Labs Labs: 07/28/18 05:14 07/28/18 05:14 - Constitutional Appears: Agitated - Head Exam Head Exam: NORMOCEPHALIC - Eye Exam Eye Exam: Normal appearance - ENT Exam ENT Exam: Mucous Membranes Moist - Neck Exam Neck Exam: Full ROM, Normal Inspection - Respiratory Exam Respiratory Exam: NORMAL BREATHING PATTERN - Extremities Exam Extremities Exam: Full ROM - Neurological Exam Neurological Exam: Alert, Awake Additional comments: speech clear; agitated; moves all extremities without difficulty; no tremors or abnormal movements noted; refused full neuro exam - Psychiatric Exam Psychiatric exam: Agitated - Skin Skin Exam: Normal Color Assessment and Plan (1) Breakthrough seizure Assessment & Plan: Imaging reviewed: -Carotid U/S (07/27/18): no stenosis of bilateral carotids. -CT Head (07/27/18): no acute intracranial pathology. -Pt refused Valproic Acid levels to be checked. If pt agrees, may check the level. -It is unclear if VEEG was completed for the full 24 hours; pt likely refused once [employer] came to connect the VEEG yesterday. Nursing notes state that EEG was completed, though. Discussed this concern with primary team and primary rn. -Pt can follow up with her neurologist as outpatient within 1-2 weeks for seizure management. -Pt may continue all AE medications as rx by her neurologist. -Continue all other recommendations by psych on the case for pt's mental health and polysubstance abuse. -Reconsult prn. Thank you for this consult. Brittany Bergman, DNP, CASTING MACHINE SERVICE OPERATOR d/w Dr. Montes De Oca Status: Acute
--- NOTE | 2018-07-29 11:33 | CP.PCM.CON ---
History of Present Illness - History of Present Illness History of Present Illness: follow up consult pt is a32ys old female brought to ER by boyfriend after she sustained a fall after using opiates, cocaine and barbiturates, pt was admitted to psychiatry for depression and also requesting assistance for referral to rehab, she was witnessed to have seizures, on reviewing the notes one episode was a grand mal seizure , pt was and transferred to medical floor for both medical and and neurology work up pt on evaluation today reported that she feeling tired and drained , dizzy at times, pt denied depressed mood denied any current changes in sleep or appetite, denied perceptual disturbances and at current time she is declining any inpatient psychiatric help or referral to rehab Past Patient History - Infectious Disease Hx of Infectious Diseases: None - Tetanus Immunizations Tetanus Immunization: Unknown - Past Medical History & Family History Past Medical History?: Yes - Past Social History Smoking Status: Current Some Days Smoker - CARDIAC Hx Hypercholesterolemia: Yes Hx Hypertension: Yes - PULMONARY Hx Asthma: Yes - NEUROLOGICAL Hx Migraine: Yes Hx Seizures: Yes Hx Transient Ischemic Attacks (TIA): Yes - HEENT Hx HEENT Problems: No Other/Comment: wears glasses - RENAL Hx Chronic Kidney Disease: No - ENDOCRINE/METABOLIC Hx Endocrine Disorders: No - HEMATOLOGICAL/ONCOLOGICAL Hx Anemia: Yes Hx Human Immunodeficiency Virus (HIV): No Hx Sickle Cell Disease: Yes - INTEGUMENTARY Hx Dermatological Problems: No - MUSCULOSKELETAL/RHEUMATOLOGICAL Hx Falls: Yes - GASTROINTESTINAL Hx Gastrointestinal Disorders: Yes Hx Gastroesophageal Reflux: Yes - GENITOURINARY/GYNECOLOGICAL Hx Sexually Transmitted Disorders: No - PSYCHIATRIC Hx Substance Use: Yes (herroine) - SURGICAL HISTORY Hx Surgeries: Yes (L ovarian cyst) Other/Comment: cyst removed from left ovary. I & D L Leg abscess - ANESTHESIA Hx Anesthesia: Yes Hx Anesthesia Reactions: Yes (states "couldn't breathe") Meds Allergies/Adverse Reactions: Allergies Allergy/AdvReac Type Severity Reaction Status Date / Time ketorolac tromethamine Allergy Mild SWELLING Verified 07/27/18 12:29 [From Toradol] naproxen [From Naprosyn] Allergy Mild URTICARIA Verified 07/27/18 12:29 polyethylene glycol 3350 Allergy Mild RASH Verified 07/27/18 12:29 [From Miralax] shellfish derived Allergy Mild ANAPHYLAXIS Verified 07/27/18 12:29 mushroom Allergy ANAPHYLAXIS Verified 07/27/18 12:29 ibuprofen [From Motrin] AdvReac Mild vomiting Verified 07/27/18 12:29 blood PORK AdvReac DIARRHEA Verified 07/27/18 12:29 nguyen Allergy Severe RASH Uncoded 07/27/18 12:29 - Medications Medications: Current Medications Apixaban (Eliquis) 5 mg PO BID [facility]; Protocol Last Admin: 07/28/18 18:31 Dose: 5 mg Aspirin (Ecotrin) 81 mg PO DAILY [facility] Last Admin: 07/28/18 08:38 Dose: 81 mg Atorvastatin Calcium (Lipitor) 40 mg PO HS [facility] Last Admin: 07/28/18 22:16 Dose: 40 mg Bacitracin (Bacitracin Oint) 1 applic TOP TID [facility] Last Admin: 07/29/18 00:12 Dose: 1 applic Divalproex Sodium (Depakote Dr(*Bid*)) 750 mg PO BID [facility] Last Admin: 07/28/18 18:32 Dose: 750 mg Emollient Ointment (Vaseline Oint) 1 pkt TOP BID [facility] Last Admin: 07/29/18 00:12 Dose: 1 pkt Famotidine (Pepcid) 40 mg PO ONCE ONE Stop: 07/29/18 23:59 Last Admin: 07/29/18 00:11 Dose: 40 mg Gabapentin (Neurontin) 300 mg PO TID [facility] Last Admin: 07/28/18 18:32 Dose: 300 mg Hydroxyzine Pamoate (Vistaril) 50 mg PO TID [facility] Last Admin: 07/28/18 18:33 Dose: 50 mg Pantoprazole Sodium (Protonix Ec Tab) 40 mg PO DAILY [facility] Last Admin: 07/28/18 08:40 Dose: 40 mg Topiramate (Topamax) 100 mg PO BID [facility] Last Admin: 07/28/18 18:32 Dose: 100 mg Physical Exam - Psychiatric Exam Additional comments: pt on evaluation seen in bed , alert and awake reported mood is tired, affect s appropriate to thought content speech normal , thought form coherent pt denied any current suicidal or homicidal ideation denied perceptual disturbances , non elicited orientedx3 limited insight into illness Results - Vital Signs Recent Vital Signs: Last Vital Signs Temp 97.6 F 07/29/18 08:55 Pulse 100 H 07/29/18 08:55 Resp 20 07/29/18 08:55 BP 118/73 07/29/18 08:55 Pulse Ox 100 07/29/18 08:55 - Labs Result Diagrams: 07/28/18 05:14 07/28/18 05:14 Labs: Laboratory Results - last 24 hr 07/28/18 07/28/18 07/28/18 17:24 18:31 23:42 POC Glucose (mg/dL) 139 H 131 H Urine Opiates Screen Positive H Urine Methadone Screen Negative Ur Barbiturates Screen Positive H Ur Phencyclidine Scrn Negative Ur Amphetamines Screen Negative U Benzodiazepines Scrn Positive U Oth Cocaine Metabols Negative U Cannabinoids Screen Negative Assessment & Plan - Assessment and Plan (Free Text) Assessment: substance induced mood disorder opiate dependence barbiturate dependence cocaine abuse bipolar disorder Plan: pt at current mental status refusing admission to psychiatry after medical clearance pt was educated about the risk of possible relapse and possible overdose on discharge, pt continues to decline psychiatric help pt at current mental status denied suicidal or homicidal ideation denied perceptual disturbances, does not meet criteria for involuntary admission pt psychiatrically cleared discussed with Dr Kenney pt could be discharged after being cleared by neurology and internal medicine
--- NOTE | 2018-07-29 12:19 | CP.PCM.DIS ---
<Marilee Caldwell - Last Filed: 07/29/18 12:41> Provider - Provider Date of Admission: 07/27/18 12:29 Attending physician: Dasia Kenney DO Consults: 07/27/18 14:52 Neurology Consult Routine Comment: Consulting Provider: John Manzanares Consulting Physician: John Manzanares Reason for Consult: seizure disorder and syncope 07/27/18 14:53 Psychiatry Consult Stat Comment: Consulting Provider: Bang Bone Consulting Physician: Bang Bone Reason for Consult: substance use disorder, bipolar 07/27/18 22:33 Nursing Referral for Wound Care Routine Comment: Physician Instructions: Reason For Exam: low edd scale 07/27/18 23:49 Social Work Referral Routine Comment: per protocol Physician Instructions: Reason For Exam: per protocol Time Spent in preparation of Discharge (in minutes): 30 Hospital Course - Lab Results Lab Results: Most Recent Lab Values WBC 8.4 K/uL (4.8-10.8) 07/28/18 05:14 RBC 5.82 Mil/uL (3.80-5.20) H 07/28/18 05:14 Hgb 15.0 g/dL (12.0-16.0) 07/28/18 05:14 Hct 46.2 % (34.0-47.0) 07/28/18 05:14 MCV 79.3 fl (81.0-99.0) L 07/28/18 05:14 MCH 25.8 pg (27.0-31.0) L 07/28/18 05:14 MCHC 32.5 g/dL (33.0-37.0) L 07/28/18 05:14 RDW 16.5 % (11.5-14.5) H 07/28/18 05:14 Plt Count 302 K/uL (130-400) 07/28/18 05:14 MPV 8.3 fl (7.2-11.7) 07/28/18 05:14 Neut % (Auto) 51.3 % (50.0-75.0) 07/28/18 05:14 Lymph % (Auto) 36.2 % (20.0-40.0) 07/28/18 05:14 [place] % (Auto) 8.9 % (0.0-10.0) 07/28/18 05:14 Eos % (Auto) 2.3 % (0.0-4.0) 07/28/18 05:14 Baso % (Auto) 1.3 % (0.0-2.0) 07/28/18 05:14 Neut # (Auto) 4.3 K/uL (1.8-7.0) 07/28/18 05:14 Lymph # (Auto) 3.0 K/uL (1.0-4.3) 07/28/18 05:14 [place] # (Auto) 0.7 K/uL (0.0-0.8) 07/28/18 05:14 Eos # (Auto) 0.2 K/uL (0.0-0.7) 07/28/18 05:14 Baso # (Auto) 0.1 K/uL (0.0-0.2) 07/28/18 05:14 pO2 56 mm/Hg (30-55) H 07/27/18 13:06 VBG pH 7.41 (7.32-7.43) 07/27/18 13:06 VBG pCO2 32 mmHg (40-60) L 07/27/18 13:06 VBG HCO3 22.1 mmol/L 07/27/18 13:06 VBG Total CO2 21.3 mmol/L (22-28) L 07/27/18 13:06 VBG O2 Sat (Calc) 93.2 % (40-65) H 07/27/18 13:06 VBG Base Excess -3.2 mmol/L (0.0-2.0) L 07/27/18 13:06 VBG Potassium 4.2 mmol/L (3.6-5.2) 07/27/18 13:06 Sodium 139.0 mmol/L (132-148) 07/27/18 13:06 Chloride 108.0 mmol/L (98-107) H 07/27/18 13:06 Glucose 89 mg/dL (65-105) 07/27/18 13:06 Lactate 1.4 mmol/L (0.7-2.1) 07/27/18 13:06 FiO2 21.0 % 07/27/18 13:06 Sodium 140 mmol/l (132-148) 07/28/18 05:14 Potassium 3.7 MMOL/L (3.6-5.0) 07/28/18 05:14 Chloride 108 mmol/L (98-107) H 07/28/18 05:14 Carbon Dioxide 19 mmol/L (22-30) L 07/28/18 05:14 Anion Gap 17 (10-20) 07/28/18 05:14 BUN 14 mg/dl (7-17) 07/28/18 05:14 Creatinine 0.9 mg/dl (0.7-1.2) 07/28/18 05:14 Est GFR ( Amer) > 60 07/28/18 05:14 Est GFR (Non-Af Amer) > 60 07/28/18 05:14 POC Glucose (mg/dL) 131 mg/dL (65-110) H 07/28/18 23:42 Random Glucose 106 mg/dL (65-105) H 07/28/18 05:14 Calcium 8.9 mg/dL (8.4-10.2) 07/28/18 05:14 Phosphorus 4.9 mg/dl (2.5-4.5) H 07/28/18 05:14 Magnesium 2.0 MG/DL (1.6-2.3) 07/28/18 05:14 Total Bilirubin 0.3 mg/dl (0.2-1.3) 07/28/18 05:14 AST 21 U/L (14-36) 07/28/18 05:14 ALT 15 U/L (9-52) 07/28/18 05:14 Alkaline Phosphatase 80 U/L (38-126) 07/28/18 05:14 Total Protein 8.0 G/DL (6.3-8.2) 07/28/18 05:14 Albumin 4.3 g/dL (3.5-5.0) 07/28/18 05:14 Globulin 3.7 gm/dL (2.2-3.9) 07/28/18 05:14 Albumin/Globulin Ratio 1.1 (1.0-2.1) 07/28/18 05:14 Venous Blood Potassium 4.2 mmol/L (3.6-5.2) 07/27/18 13:06 Urine Opiates Screen Positive (NEGATIVE) H 04/14/19 18:31 Urine Methadone Screen Negative (NEGATIVE) 07/28/18 18:31 Ur Barbiturates Screen Positive (NEGATIVE) H 07/28/18 18:31 Ur Phencyclidine Scrn Negative (NEGATIVE) 07/28/18 18:31 Ur Amphetamines Screen Negative (NEGATIVE) 07/28/18 18:31 U Benzodiazepines Scrn Positive (NEGATIVE) 07/28/18 18:31 U Oth Cocaine Metabols Negative (NEGATIVE) 07/28/18 18:31 U Cannabinoids Screen Negative (NEGATIVE) 07/28/18 18:31 - Hospital Course Hospital Course: 32 y/o F with hx of polysubstance abuse, seizure disorder, 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 Neurology saw and evaluated with recommendation of outpatient video EEG. Patient was cleared by psych. Patient refused telemetry monitoring, and refused to sign AMA. It was explained to the patient that leaving AMA can result in major health consequences including . Discharge Plan - Follow Up Plan Condition: STABLE Disposition: AGAINST MEDICAL ADVICE Instructions: Seizures, Adult (DC) Referrals: [facility] [Outside] John Manzanares MD [Medical Doctor] - <Dasia Kenney - Last Filed: 07/30/18 07:36> Provider - Provider Date of Admission: 07/27/18 12:29 Attending physician: Dasia Kenney DO Consults: 07/27/18 14:52 Neurology Consult Routine Comment: Consulting Provider: John Manzanares Consulting Physician: John Manzanares Reason for Consult: seizure disorder and syncope 07/27/18 14:53 Psychiatry Consult Stat Comment: Consulting Provider: Bang Bone Consulting Physician: Bang Bone Reason for Consult: substance use disorder, bipolar 07/27/18 22:33 Nursing Referral for Wound Care Routine Comment: Physician Instructions: Reason For Exam: low edd scale 07/27/18 23:49 Social Work Referral Routine Comment: per protocol Physician Instructions: Reason For Exam: per protocol Hospital Course - Lab Results Lab Results: Most Recent Lab Values WBC 8.4 K/uL (4.8-10.8) 07/28/18 05:14 RBC 5.82 Mil/uL (3.80-5.20) H 07/28/18 05:14 Hgb 15.0 g/dL (12.0-16.0) 07/28/18 05:14 Hct 46.2 % (34.0-47.0) 07/28/18 05:14 MCV 79.3 fl (81.0-99.0) L 07/28/18 05:14 MCH 25.8 pg (27.0-31.0) L 07/28/18 05:14 MCHC 32.5 g/dL (33.0-37.0) L 07/28/18 05:14 RDW 16.5 % (11.5-14.5) H 07/28/18 05:14 Plt Count 302 K/uL (130-400) 07/28/18 05:14 MPV 8.3 fl (7.2-11.7) 07/28/18 05:14 Neut % (Auto) 51.3 % (50.0-75.0) 07/28/18 05:14 Lymph % (Auto) 36.2 % (20.0-40.0) 07/28/18 05:14 [place] % (Auto) 8.9 % (0.0-10.0) 07/28/18 05:14 Eos % (Auto) 2.3 % (0.0-4.0) 07/28/18 05:14 Baso % (Auto) 1.3 % (0.0-2.0) 07/28/18 05:14 Neut # (Auto) 4.3 K/uL (1.8-7.0) 07/28/18 05:14 Lymph # (Auto) 3.0 K/uL (1.0-4.3) 07/28/18 05:14 [place] # (Auto) 0.7 K/uL (0.0-0.8) 07/28/18 05:14 Eos # (Auto) 0.2 K/uL (0.0-0.7) 07/28/18 05:14 Baso # (Auto) 0.1 K/uL (0.0-0.2) 07/28/18 05:14 pO2 56 mm/Hg (30-55) H 07/27/18 13:06 VBG pH 7.41 (7.32-7.43) 07/27/18 13:06 VBG pCO2 32 mmHg (40-60) L 07/27/18 13:06 VBG HCO3 22.1 mmol/L 07/27/18 13:06 VBG Total CO2 21.3 mmol/L (22-28) L 07/27/18 13:06 VBG O2 Sat (Calc) 93.2 % (40-65) H 07/27/18 13:06 VBG Base Excess -3.2 mmol/L (0.0-2.0) L 07/27/18 13:06 VBG Potassium 4.2 mmol/L (3.6-5.2) 07/27/18 13:06 Sodium 139.0 mmol/L (132-148) 07/27/18 13:06 Chloride 108.0 mmol/L (98-107) H 07/27/18 13:06 Glucose 89 mg/dL (65-105) 07/27/18 13:06 Lactate 1.4 mmol/L (0.7-2.1) 07/27/18 13:06 FiO2 21.0 % 07/27/18 13:06 Sodium 140 mmol/l (132-148) 07/28/18 05:14 Potassium 3.7 MMOL/L (3.6-5.0) 07/28/18 05:14 Chloride 108 mmol/L (98-107) H 07/28/18 05:14 Carbon Dioxide 19 mmol/L (22-30) L 07/28/18 05:14 Anion Gap 17 (10-20) 07/28/18 05:14 BUN 14 mg/dl (7-17) 07/28/18 05:14 Creatinine 0.9 mg/dl (0.7-1.2) 07/28/18 05:14 Est GFR ( Amer) > 60 07/28/18 05:14 Est GFR (Non-Af Amer) > 60 07/28/18 05:14 POC Glucose (mg/dL) 131 mg/dL (65-110) H 07/28/18 23:42 Random Glucose 106 mg/dL (65-105) H 07/28/18 05:14 Calcium 8.9 mg/dL (8.4-10.2) 07/28/18 05:14 Phosphorus 4.9 mg/dl (2.5-4.5) H 07/28/18 05:14 Magnesium 2.0 MG/DL (1.6-2.3) 07/28/18 05:14 Total Bilirubin 0.3 mg/dl (0.2-1.3) 07/28/18 05:14 AST 21 U/L (14-36) 07/28/18 05:14 ALT 15 U/L (9-52) 07/28/18 05:14 Alkaline Phosphatase 80 U/L (38-126) 07/28/18 05:14 Total Protein 8.0 G/DL (6.3-8.2) 07/28/18 05:14 Albumin 4.3 g/dL (3.5-5.0) 07/28/18 05:14 Globulin 3.7 gm/dL (2.2-3.9) 07/28/18 05:14 Albumin/Globulin Ratio 1.1 (1.0-2.1) 07/28/18 05:14 Prolactin 10.5 ng/mL (3.0-18.9) 07/27/18 14:08 Venous Blood Potassium 4.2 mmol/L (3.6-5.2) 07/27/18 13:06 Urine Opiates Screen Positive (NEGATIVE) H 07/28/18 18:31 Urine Methadone Screen Negative (NEGATIVE) 07/28/18 18:31 Ur Barbiturates Screen Positive (NEGATIVE) H 07/28/18 18:31 Ur Phencyclidine Scrn Negative (NEGATIVE) 07/28/18 18:31 Ur Amphetamines Screen Negative (NEGATIVE) 07/28/18 18:31 U Benzodiazepines Scrn Positive (NEGATIVE) 07/28/18 18:31 U Oth Cocaine Metabols Negative (NEGATIVE) 07/28/18 18:31 U Cannabinoids Screen Negative (NEGATIVE) 07/28/18 18:31 Attending/Attestation - Attestation I have personally seen and examined this patient.: Yes I have fully participated in the care of the patient.: Yes I have reviewed all pertinent clinical information, including history, physical exam and plan: Yes Notes (Text): 07/30/18 07:35 Is a 32-year-old female who was admitted to psychiatry initially for mood disorder due to polysubstance abuse. On the floor she had episodes of pseudoseizures that she did not to stay. She also had 2 episodes of "syncope" on psychiatry as well. Patient was placed on observation on the medical floor for evaluation of her syncope. While she was patient patient had a visitor and was found to have overdosed on heroin. He was found to be unresponsive, and required 2 doses of Narcan to which she responded well. Upon check of her belongings one bag of heroin was found in along with a crack pipe as well as a weed pen. Was evaluated by psychiatry and was cleared from psych standpoint and she subsequently left AGAINST MEDICAL ADVICE without signing any papers.
[2018-07-29 12:24] VITALS: PULSE 89
--- NOTE | 2018-07-29 15:15 | PCM.EEG ---
Electroencephalogram Report - Electroencephalogram Report Procedure Date: 07/28/18 Medication: Depakote, ASA, Eliquis Interpretation: Technical Information: This was a 16 -channel EEG, 1-channel EKG routine EEG performed using an Oculus360 machine. Electrodes were applied using the 10/20 international placement system. Start; 16;07 End; 17;00 Total 53 min. Clinical Information: Seizures. During resting wakefulness there was a symmetric posterior dominant rhythm at 8.5-9.5 Hz, 30-50 uV, which was reactive to eye opening and closing. Drowsiness (16;35) was associated with fragmentation of the posterior dominant rhythm and with slow roving eye movements. Hyperventilation was not performed. Photic stimulation was performed and there were no changes on the record. Focal abnormality; none ECG was associated with a normal sinus rhythm. Impression: This is a normal awake and drowsy electroencephalogram.
[2018-07-29 16:38] LABS: PROLACTIN 10.5 ng/mL (3.0-18.9)
--- NOTE | 2018-07-29 19:06 | PQF ---
PROVIDER RESPONSE TEXT: Provider was unable to determine a response for this query. REVIEWER QUERY TEXT: Schizophrenia Type Hx. of Schizophrenia is documented in the Medical Record. 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 07/29 Psych: Assessment: substance induced mood disorder ,opiate dependence barbiturate dependence ,cocaine abuse , bipolar disorder The patient's Clinical Indicators include: --- Query created by: Diana Vale on 07/29/2018 3:01 PM Electronically signed by: Marilee Caldwell 07/29/2018 7:03 PM
--- NOTE | 2018-07-31 09:12 | PQF ---
PROVIDER RESPONSE TEXT: Breakthrough seizure- bc of noncompliance with medication; depakote level was found to be low REVIEWER QUERY TEXT: Clarification of Clinical Diagnostic Findings The D/C Summary includes a hx of Seizure Disorder admitted because of Seizure Please clarify the Prin cipal diagnosis: Seizure Disorder (which would be coded to Epilepsy) versus Seizure without any iden tification of the cause (would code to Unspecified convulsion) versus Breakthrough Seizure could be due to cocaine versus Seizure may be due to Non epileptic anaphylactic Seizure etc. 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 07/29 Psych progress note: substance induced mood disorder ,opiate dependence barbiturate dependence ,cocaine abuse , bipolar disorder 07/29 Neuro [employer] addendum to progress note: pt also actively uses cocaine, which she did not mention to me today.This could have contributed to her breakthrough seizure The patient's Clinical Indicators include: -- Query created by: Diana Vale on 07/30/2018 7:35 AM Electronically signed by: Marilee Caldwell 07/31/2018 9:09 AM
--- NOTE | 2018-08-05 11:42 | PQF ---
PROVIDER RESPONSE TEXT: Likely due to narcotic abuse. REVIEWER QUERY TEXT: Clarification of Clinical Diagnostic Findings Physician?s Documentation Request This Form is Not a Permanent Document in the Medical Record Pt Name: SD BERNAL MR #: [id number] Payor: MEDICAID HMO Unit/Bed: H.TEL-H414-1 Adm Date: 07/27/2018 12:29:00 PM Reviewer: Diana Vale Ext. Query Date: 07/31/2018 9:25:00 AM Clarification of Clinical Diagnostic Findings [id number] By submitting this query, we are merely seeking further clarification of documentation to accurately reflect all conditions that you are monitoring, evaluating, treating or that extend the hospitalizati on or utilize additional resources of care. Please utilize your independent clinical judgment when ad dressing the question(s) below. Dear Doctor Dasia Kenney, The patient?s Clinical Indicators include: -- Please clarify the etiology of Syncope if known - Or; Unable to determine -Or: Other explanation of clinical finding D/C Summary Attending/Attestation: includes:to psychiatry initially for mood disorder due to polysubs tance abuse. On the floor she had episodes of pseudoseizures that she did not to stay. She also had 2 episodes of "syncope" on psychiatry as well.Patient was placed on observation on the medical floor f or evaluation of her syncope.While she was patient patient had a visitor and was found to have overdo sed on heroin.He was found to be unresponsive, and required 2 doses of Narcan to which she responded well.Upon check of her belongings one bag of heroin was found in along with a crack pipe as well as a weed pen.Was evaluated by psychiatry and was cleared from psych standpoint and she subsequently left AMA without signing any papers PLEASE DOCUMENT ANY ADDITIONAL DIAGNOSES AND/OR SPECIFICITY IN THE PROGRESS NOTES AND/OR DISCHARGE AGUERO MMARY. Clinically unable to determine/unknown Disagree with the above request Need to discuss Query created by: Diana Vale on 07/31/2018 9:25 AM Electronically signed by: Dasia Kenney MD 08/05/2018 11:40 AM
--- NOTE | 2018-08-05 11:42 | PQF ---
PROVIDER RESPONSE TEXT: Pseudoseizures Heroin abuse REVIEWER QUERY TEXT: Condition Necessitating Admission Physician?s Documentation Request This Form is Not a Permanent Document in the Medical Record Pt Name: SD BERNAL MR #: [id number] Payor: MEDICAID HMO Unit/Bed: H.TEL-H414-1 Adm Date: 07/27/2018 12:29:00 PM Reviewer: Diana Vale Ext. Query Date: 07/31/2018 9:11:00 AM Condition Necessitating Admission [id number] By submitting this query, we are merely seeking further clarification of documentation to accurately reflect all conditions that you are monitoring, evaluating, treating or that extend the hospitalizati on or utilize additional resources of care. Please utilize your independent clinical judgment when ad dressing the question(s) below. Dear Doctor Dasia Kenney, The patient?s Clinical Indicators include: --- Please clarify the Principal diagnosis (es) necessitating the admission D/C Summary includes: admitted from psych because of seizure. Neurology saw and evaluated with recommendation of outpatient video EEG. Patient was cleared by psych. Patient refused telemetry monit ori, and refused to sign AMA. Attending/Attestation: 07:35 Is a 32-year-old female who was admitted to psychiatry initially for moo d disorder due to polysubstance abuse.On the floor she had episodes of pseudoseizures that she did no t to stay.She also had 2 episodes of "syncope" on psychiatry as well.Patient was placed on observation on the medical floor for evaluation of her syncope.While she was patient patient had a visitor and was found to have overdosed on heroin.He was found to be unresponsive, and required 2 doses of Narcan to which she responded well. PLEASE DOCUMENT ANY ADDITIONAL DIAGNOSES AND/OR SPECIFICITY IN THE PROGRESS NOTES AND/OR DISCHARGE AGUERO MMARY. Clinically unable to determine/unknown Disagree with the above request Need to discuss Query created by: Diana Vale on 07/31/2018 9:11 AM Electronically signed by: Dasia Kenney MD 08/05/2018 11:40 AM
== END 2018-07-29 13:19 | disposition left against medical advice (07) | DRG 425 ==
LOC: H.ER 12:21 → H.ERHOLD 12:29 → H.TEL 18:04
PROVIDERS: ADMIT Student in an Organized Health Care Education/Training Program; ATTEND Student in an Organized Health Care Education/Training Program
DX: F44.5 Conversion disorder with seizures or convulsions (principal); F11.20 Opioid dependence, uncomplicated; D57.1 Sickle-cell disease without crisis; D68.59 Other primary thrombophilia; F14.10 Cocaine abuse, uncomplicated; F13.20 Sedative, hypnotic or anxiolytic dependence, uncomplicated; F19.14 Other psychoactive substance abuse with psychoactive substance-induced mood disorder; G43.909 Migraine, unspecified, not intractable, without status migrainosus; F31.30 Bipolar disorder, current episode depressed, mild or moderate severity, unspecified; Z79.01 Long term (current) use of anticoagulants; Z79.82 Long term (current) use of aspirin; Z86.73 Personal history of transient ischemic attack (TIA), and cerebral infarction without residual deficits; F17.210 Nicotine dependence, cigarettes, uncomplicated; I25.10 Atherosclerotic heart disease of native coronary artery without angina pectoris; E78.00 Pure hypercholesterolemia, unspecified; E78.5 Hyperlipidemia, unspecified; I10 Essential (primary) hypertension; G89.29 Other chronic pain; T40.1X1A Poisoning by heroin, accidental (unintentional), initial encounter; J45.909 Unspecified asthma, uncomplicated; F20.9 Schizophrenia, unspecified; Y92.239 Unspecified place in hospital as the place of occurrence of the external cause; K21.9 Gastro-esophageal reflux disease without esophagitis; Z79.899 Other long term (current) drug therapy; Z82.0 Family history of epilepsy and other diseases of the nervous system; Z83.2 Family history of diseases of the blood and blood-forming organs and certain disorders involving the immune mechanism; D64.9 Anemia, unspecified; F41.9 Anxiety disorder, unspecified; M19.90 Unspecified osteoarthritis, unspecified site; Z91.14 Patient's other noncompliance with medication regimen

== ENCOUNTER 2018-08-15 13:16 | Emergency (ER) | payer MEDICAID ==
[2018-08-15 13:17] VITALS: BMI 28.3
[2018-08-15] MEDS ORDERED: Lactated Ringer's 1,000 ML IV SCH (14:30)
[2018-08-15 15:06] LABS: BASO # 0.1 K/uL (0.0-0.2); BASO % 0.7 % (0.0-2.0); EOS % 0.4 % (0.0-4.0); HEMOGLOBIN 13.4 g/dL (12.0-16.0); LYMPH # 1.4 K/uL (1.0-4.3); LYMPH % 17.2 % (20.0-40.0); MEAN CELL VOLUME 79.5 fl (81.0-99.0); MEAN CORPUSCULAR HEMOGLOBIN 25.9 pg (27.0-31.0); MEAN CORPUSCULAR HGB CONC 32.6 g/dL (33.0-37.0); MEAN PLATELET VOLUME 8.2 fl (7.2-11.7); MONO # 0.4 K/uL (0.0-0.8); MONO % 5.6 % (0.0-10.0); NEUT % 76.1 % (50.0-75.0); NRBC % 0.3 % (0.0-0.0); RBC 5.19 Mil/uL (3.80-5.20); RED CELL DISTRIBUTION WIDTH 16.4 % (11.5-14.5); WHITE BLOOD COUNT 7.9 K/uL (4.8-10.8)
[2018-08-15 15:12] LABS: ALB/GLOB RATIO 1.1 (1.0-2.1); ALBUMIN 4.4 g/dL (3.5-5.0); ALT/SGPT 27 U/L (9-52); AST/SGOT 23 U/L (14-36); BLOOD UREA NITROGEN 8 mg/dl (7-17); CALCIUM 9.6 mg/dL (8.4-10.2); GFR NON-AFRICAN AMERICAN > 60
[2018-08-15 15:55] LABS: SQUAMOUS EPITHIAL 11 /hpf (0-5); URINE BACTERIA RARE (<OCC); URINE BILIRUBIN NEGATIVE (NEGATIVE); URINE BLOOD NEGATIVE (NEGATIVE); URINE CLARITY SLIGHTY-CLOUDY (Clear); URINE COLOR STRAW (YELLOW); URINE GLUCOSE (UA) NEG (NEGATIVE); URINE LEUKOCYTE ESTERASE TRACE Leu/uL (Negative); URINE PROTEIN NEGATIVE (NEGATIVE); URINE UROBILINOGEN 0.2-1.0 mg/dL (0.2-1.0)
--- NOTE | 2018-08-15 16:41 | ED PDOC ---
HPI: Female Pain Time Seen by Provider: 08/15/18 13:36 Chief Complaint (Nursing): Dizziness/Lightheaded Chief Complaint (Provider): Vaginal spotting, dizziness History Per: Patient History/Exam Limitations: no limitations Onset/Duration Of Symptoms: Days (1) Current Symptoms Are (Timing): Still Present (with wiping) Additional Complaint(s): 32yo female, otherwise well, A2, comes to ER reporting she had vaginal spotting yesterday, present only when using the bathroom and wiping. She also reports she felt dizzy after seeing the blood. Patient is unsure regarding duration of her current . She also denies any history of prior ectopic . She dneies any nausea, vomiting, dairrhea, fever, chills, back pain, black or tarry stools, bloody stools, blood in urine, dysuria or other medical complaints. PMD: Shalom Peñaloza Last Menstral Period: unknown : 5 Para: 2 Miscarriage: 2 Past Medical History Reviewed: Historical Data, Nursing Documentation, Vital Signs Vital Signs: Last Vital Signs Temp 98.3 F 08/15/18 13:19 Pulse 72 08/15/18 13:54 Resp 19 08/15/18 13:54 BP 115/56 L 08/15/18 13:54 Pulse Ox 98 08/15/18 13:54 Primary Care Provider: Thea Serna - Medical History PMH: Anemia, Anxiety, Arthritis, Asthma, Back Problems, Bipolar Disorder, CAD, CVA (x 3, Protein C/S deficiency), Depression, Deep Vein Thrombosis, HTN, Hypercholesterolemia, Hyperlipidemia, Migraine, Schizophrenia, Seizures, Sickle Cell Disease, TIA, Chronic Pain Denies: Diabetes, Hepatitis, HIV, Chronic Kidney Disease, Sexually Transmitted Disease - Surgical History Surgical History: No Surg Hx - Family History Family History: States: Unknown Family Hx, [place] - Immunization History Hx Tetanus Toxoid Vaccination: No Hx Influenza Vaccination: No Hx Pneumococcal Vaccination: No - Home Medications Home Medications: Ambulatory Orders Medication Instructions Recorded Aspirin [Adult Aspirin] 81 mg PO DAILY 03/20/18 Apixaban [Eliquis] 5 mg PO BID 07/07/18 Divalproex [Depakote DR(*BID*)] 1,000 mg PO HS 30 Days #60 tcp 07/12/18 Gabapentin [Neurontin] 300 mg PO TID 30 Days #90 cap 07/12/18 QUEtiapine [Seroquel] 100 mg PO HS 30 Days #30 tab 07/12/18 Topiramate [Topamax] 100 mg PO BID 07/25/18 hydrOXYzine Pamoate [Vistaril] 50 mg PO TID 07/25/18 Nitrofurantoin Macrocrystals 100 mg PO BID #14 cap 08/15/18 [Macrobid] - Allergies Allergies/Adverse Reactions: Allergies Allergy/AdvReac Type Severity Reaction Status Date / Time ketorolac tromethamine Allergy Mild SWELLING Verified 08/15/18 13:19 [From Toradol] naproxen [From Naprosyn] Allergy Mild URTICARIA Verified 08/15/18 13:19 polyethylene glycol 3350 Allergy Mild RASH Verified 08/15/18 13:19 [From Miralax] shellfish derived Allergy Mild ANAPHYLAXIS Verified 08/15/18 13:19 mushroom Allergy ANAPHYLAXIS Verified 08/15/18 13:19 ibuprofen [From Motrin] AdvReac Mild vomiting Verified 08/15/18 13:19 blood PORK AdvReac DIARRHEA Verified 08/15/18 13:19 nguyen Allergy Severe RASH Uncoded 08/15/18 13:19 Review of Systems ROS Statement: Except As Marked, All Systems Reviewed And Found Negative Constitutional: Negative for: Fever, Chills Gastrointestinal: Negative for: Nausea, Vomiting, Abdominal Pain, Diarrhea, Melena, Hematochezia Genitourinary Female: Positive for: Vaginal Bleeding (spotting). Negative for: Dysuria, Hematuria Neurological: Positive for: Dizziness Physical Exam - Reviewed Nursing Documentation Reviewed: Yes Vital Signs Reviewed: Yes - Physical Exam Appears: Positive for: Non-toxic, No Acute Distress Head Exam: Positive for: ATRAUMATIC, NORMAL INSPECTION, NORMOCEPHALIC Skin: Positive for: Normal Color Eye Exam: Positive for: Normal appearance Neck: Positive for: Normal, Supple Cardiovascular/Chest: Positive for: Regular Rate, Rhythm. Negative for: Tachycardia Respiratory: Positive for: Normal Breath Sounds. Negative for: Respiratory Distress Gastrointestinal/Abdominal: Positive for: Soft. Negative for: Tenderness, Mass, Guarding, Rebound Back: Positive for: Normal Inspection. Negative for: L CVA Tenderness, R CVA Tenderness Extremity: Positive for: Normal ROM. Negative for: Pedal Edema, Deformity Neurological/Psych: Positive for: Awake, Alert, Normal Tone - Laboratory Results Result Diagrams: 08/15/18 14:50 08/15/18 14:50 Lab Results: Total Bilirubin 0.6 mg/dl (0.2-1.3) 08/15/18 14:50 AST 23 U/L (14-36) 08/15/18 14:50 ALT 27 U/L (9-52) 08/15/18 14:50 Alkaline Phosphatase 84 U/L (38-126) 08/15/18 14:50 Total Protein 8.4 G/DL (6.3-8.2) H 08/15/18 14:50 Albumin 4.4 g/dL (3.5-5.0) 08/15/18 14:50 Globulin 3.9 gm/dL (2.2-3.9) 08/15/18 14:50 Albumin/Globulin Ratio 1.1 (1.0-2.1) 08/15/18 14:50 Urine Color Straw (YELLOW) 08/15/18 14:50 Urine Clarity Slighty-cloudy (Clear) 08/15/18 14:50 Urine pH 8.0 (5.0-8.0) 08/15/18 14:50 Ur Specific [place] 1.008 (1.003-1.030) 08/15/18 14:50 Urine Protein Negative mg/dL (NEGATIVE) 08/15/18 14:50 Urine Glucose (UA) Neg mg/dL (NEGATIVE) 08/15/18 14:50 Urine Ketones Negative mg/dL (NEGATIVE) 08/15/18 14:50 Urine Blood Negative (NEGATIVE) 08/15/18 14:50 Urine Nitrate Negative (NEGATIVE) 08/15/18 14:50 Urine Bilirubin Negative (NEGATIVE) 08/15/18 14:50 Urine Urobilinogen 0.2-1.0 mg/dL (0.2-1.0) 08/15/18 14:50 Ur Leukocyte Esterase Trace Dre/uL (Negative) 08/15/18 14:50 Urine RBC (Auto) 1 /hpf (0-3) 08/15/18 14:50 Urine Microscopic WBC 1 /hpf (0-5) 08/15/18 14:50 Ur Squamous Epith Cells 11 /hpf (0-5) H 08/15/18 14:50 Urine Bacteria Rare (<OCC) 08/15/18 14:50 Beta HCG, Quant 91488.00 mIU/mL 08/15/18 14:45 - ECG O2 Sat by Pulse Oximetry: 98 (RA) Pulse Ox Interpretation: Normal Medical Decision Making Medical Decision Making: Impression: Vaginal spotting in setting of LMP unknown Plan: -- Labs -- UA -- Upreg -- US OB 1421 UPreg positive 1640 US OB FINDINGS: LMP: Unknown Prior examinations from the current : None TECHNIQUE: Real-time 2D imaging, duplex and color Doppler. FINDINGS: No pole identified. Gestational age 5 weeks 1 day based on gestational sac measurement 1.10 cm Gestational age derived from LMP: Cannot be ascertained based in the absence of a reliable/ known LMP STEPHON based on biometry: April 16, 2019 Yolk sac identified Cervix: No Cervical abnormalities: Negative examination for cervical dilatation or effacement. Closed cervix measuring 3.50 cm Subchorionic hemorrhage: None UTERUS: 4.6 x 4.6 x 9.0 cm. ADNEXA: Right: 2.1 x 2.6 x 3.2 cm. Complex likely hemorrhagic cyst 1.4 x 1.9 cm. Normal Doppler arterial waveform documented. Left: 1.1 x 1.5 x 2.6 cm. Normal Doppler arterial waveform documented Fluid in the cul-de-sac: None IMPRESSION: Early intrauterine gestation based on well-formed gestational sac and yolk sac. No pole identified. Pt. informed of results. Now c/o feeling depressed as she hasn't used heroin in several days since finding out she is . Currently without any SI/HI, hallucinations. Of note, pt. was seen here on 07/25/2018 and admitted for depression after a suicide attempt. 1930 Pt. evaluated by Mita BARON who spoke with Dr. Cruz and cleared pt. for discharge. ScribeAttestation: Documented byMariola Martinez acting as a scribe for ROBERTO Gorman. Provider ScribeAttestation: All medical record entries made by the Scribe were at my direction and personally dictated by me. I have reviewed the chart and agree that the record accurately reflects my personal performance of the history, physical exam, me dical decision making, and the department course for this patient. I have also personally directed, reviewed, and agree with the discharge instructions and disposition. Disposition - Clinical Impression Clinical Impression: UTI (urinary tract infection) - Patient ED Disposition Is Patient to be Admitted: No - Disposition Referrals: [facility] [Outside] Disposition: Routine/Home Disposition Time: 19:30 Condition: STABLE Additional Instructions: SD HERNANDES, thank you for letting us take care of you today. Your provider was Jina Mcdonald MD and you were treated for DIZZINESS. The emergency medical care you received today was directed at your acute symptoms. If you were prescribed any medication, please fill it and take as directed. It may take several days for your symptoms to resolve. Return to the Emergency Department if your symptoms worsen, do not improve, or if you have any other problems. Please contact your doctor or call one of the physicians/clinics you have been referred to that are listed on the Patient Visit Information form that is included in your discharge packet. Bring any paperwork you were given at discharge with you along with any medications you are taking to your follow up visit. Our treatment cannot replace ongoing medical care by a primary care provider outside of the emergency department. Thank you for allowing the [facility] team to be part of your care today. If you had an X-Ray or CT scan: A Radiologist will review the ED reading if any change in treatment is needed we will contact you. If you had a blood, urine, or wound culture: It will take several days for the results, if any change in treatment is needed we will contact you. If you had an STI test: It will take 48 hours for the results. Please call after 1 week if you have not heard back. Prescriptions: Nitrofurantoin Macrocrystals [Macrobid] 100 mg PO BID #14 cap Instructions: Urinary Tract Infection, Adult (DC) Forms: [employer] (Arabic)
--- NOTE | 2018-08-15 16:50 | US ---
Date of service: 08/15/2018 PROCEDURE: First trimester ultrasound Beta HCG results are unknown. Positive urine test. HISTORY: pelvic pain; vaginal bleeding COMPARISON: None TECHNIQUE: Standard protocol for this study/examination. FINDINGS: LMP: Unknown Prior examinations from the current : None TECHNIQUE: Real-time 2D imaging, duplex and color Doppler. FINDINGS: No pole identified. Gestational age 5 weeks 1 day based on gestational sac measurement 1.10 cm Gestational age derived from LMP: Cannot be ascertained based in the absence of a reliable/ known LMP STEPHON based on biometry: April 16, 2019 Yolk sac identified Cervix: No Cervical abnormalities: Negative examination for cervical dilatation or effacement. Closed cervix measuring 3.50 cm Subchorionic hemorrhage: None UTERUS: 4.6 x 4.6 x 9.0 cm. ADNEXA: Right: 2.1 x 2.6 x 3.2 cm. Complex likely hemorrhagic cyst 1.4 x 1.9 cm. Normal Doppler arterial waveform documented. Left: 1.1 x 1.5 x 2.6 cm. Normal Doppler arterial waveform documented Fluid in the cul-de-sac: None IMPRESSION: Early intrauterine gestation based on well-formed gestational sac and yolk sac. No pole identified.
[2018-08-15 19:47] VITALS: BP 122/69; PULSE 78; RESP 17; TEMP 99; O2SAT 100
== END 2018-08-15 19:55 | disposition home or self-care (01) ==
LOC: H.ER 13:16
DX: N39.0 Urinary tract infection, site not specified (principal); J45.909 Unspecified asthma, uncomplicated; Z79.01 Long term (current) use of anticoagulants; Z79.82 Long term (current) use of aspirin; Z86.718 Personal history of other venous thrombosis and embolism; Z86.73 Personal history of transient ischemic attack (TIA), and cerebral infarction without residual deficits; Z88.6 Allergy status to analgesic agent; Z86.59 Personal history of other mental and behavioral disorders; G89.29 Other chronic pain; I10 Essential (primary) hypertension
CPT/HCPCS: 76815; 80053; 81003; 81025; 84702; 85025; 86850; 86900; 87086; 87181; 99285; J7120